=== PATIENT | male | born 1955 | race Caucasian/White ===

== ENCOUNTER 2018-04-02 17:15 | Inpatient (IN) | payer MEDICAID ==
[2018-04-02 18:01] LABS: BASO % 0.3 % (0.0-2.0); EOS % 0.1 % (0.0-4.0); MEAN CORPUSCULAR HEMOGLOBIN 32.9 pg (27.0-31.0); MEAN CORPUSCULAR HGB CONC 34.3 g/dL (33.0-37.0); MONO # 0.3 K/uL (0.0-0.8); MONO % 2.9 % (0.0-10.0); NEUT # 8.8 K/uL (1.8-7.0); NRBC % 0.1 % (0.0-2.0); RBC 4.26 Mil/uL (4.40-5.90); WHITE BLOOD COUNT 10.1 K/uL (4.8-10.8)
[2018-04-02 18:04] LABS: NEUT % 86.7 % (50.0-75.0)
[2018-04-02] MEDS ORDERED: Sodium Chloride 0.9% 1,000 ML ONE ×2 (18:15→19:35)
[2018-04-02 18:24] LABS: ALB/GLOB RATIO 1.4 (1.0-2.1); ALBUMIN 4.5 g/dL (3.5-5.0); ALT/SGPT 20 U/L (21-72); AST/SGOT 23 U/L (17-59); BLOOD UREA NITROGEN 24 mg/dL (9-20); CALCIUM 10.2 mg/dl (8.6-10.4); GFR AFRICAN-AMERICAN > 60; GFR NON-AFRICAN AMERICAN > 60; LIPASE 55 U/L (23-300)
[2018-04-02] MEDS ORDERED: Sodium Chloride 0.9% 1,000 ML IV ONE ×2 (18:24→19:01)
[2018-04-02] MEDS ORDERED: (Novolin R) Insulin Human Regular 100 units/ml vial IV STA (19:56)
[2018-04-02] MEDS ORDERED: Tetanus/Diphtheria Toxoids 0.5 ml Syringe IM ONE (19:57)
--- NOTE | 2018-04-02 19:59 | C.PDOC ---
History Of Present Illness 62 y/o male with history of DM presents to ED with c/o vomiting 10 times today after eating Fried Fish for breakfast. Patient states he is non compliant with DM medication and denies abdominal pain, back pain or any other complaints at this time. Time Seen by Provider: 04/02/18 18:54 Chief Complaint (Nursing): Abdominal Pain History Per: Patient History/Exam Limitations: no limitations Onset/Duration Of Symptoms: Hrs Current Symptoms Are (Timing): Still Present Past Medical History Reviewed: Historical Data, Nursing Documentation, Vital Signs Vital Signs: Last Vital Signs Temp 98 F 04/02/18 21:15 Pulse 87 04/02/18 21:15 Resp 20 04/02/18 21:15 BP 157/89 H 04/02/18 21:15 Pulse Ox 100 04/02/18 21:15 - Medical History PMH: Gastritis, HTN, Hyperlipidemia Surgical History: No Surg Hx Family History: States: No Known Family Hx - Social History Hx Alcohol Use: No Hx Substance Use: No - Immunization History Hx Tetanus Toxoid Vaccination: No Hx Influenza Vaccination: Yes Hx Pneumococcal Vaccination: No Review Of Systems Constitutional: Negative for: Fever, Chills Gastrointestinal: Positive for: Nausea, Vomiting. Negative for: Abdominal Pain Genitourinary: Negative for: Dysuria, Hematuria Musculoskeletal: Negative for: Back Pain Skin: Negative for: Rash Physical Exam - Physical Exam Appears: Non-toxic, No Acute Distress Skin: Warm, Dry, No Rash Head: Atraumatic, Normacephalic Oral Mucosa: Moist Neck: Normal ROM, Supple Cardiovascular: Rhythm Regular Respiratory: Normal Breath Sounds, No Rales, No Rhonchi, No Wheezing Gastrointestinal/Abdominal: Soft, No Tenderness, No Guarding, No Rebound, Other (obese abdomen) Back: No CVA Tenderness, No Paraspinal Tenderness Neurological/Psych: Oriented x3, Normal Speech ED Course And Treatment - Laboratory Results Result Diagrams: 04/02/18 17:58 04/02/18 17:58 Lab Interpretation: Abnormal (+ elev glu) ECG: Interpreted By Me ECG Rhythm: Sinus Rhythm ECG Interpretation: Normal Rate From EC (BPM) O2 Sat by Pulse Oximetry: 96 (RA) Pulse Ox Interpretation: Normal - Radiology CXR: Interpreted by Me CXR Interpretation: Yes: No Acute Disease - Other Rad abd x 2 X-Ray: Interpreted by Me (large stool throughout) Progress Note: Insulin given for sugar. Patient tried to be discharged but stated he was ataxic and could not walk without assistance not baseline. Head CT ordered Reevaluation Time: 19:59 Reassessment Condition: Improved Medical Decision Making Medical Decision Making: chronic constipation vs acute food intox (ate a fried fish for breakfast this AM ) uncontrolled DM improved with ED tx normal bicarb with elev glu, LOW susp of DKA laxative educated. Disposition Doctor Will See Patient In The: Office Counseled Patient/Family Regarding: Studies Performed, Diagnosis - Disposition Referrals: [facility] [Outside] [facility] [Outside] [facility] [Outside] Disposition: HOME/ ROUTINE Disposition Time: 20:00 Condition: GOOD Additional Instructions: Reglan 10 mg for nausea/constipation as needed control your diabetes with medications and diet control Occasional laxative as needed for chronic constipation diet and exercise changes. Follow-up in our outpatient Family [facility] as needed. Prescriptions: Metoclopramide [Reglan] 1 tab PO TID PRN #25 tab PRN Reason: Nausea/Vomiting Instructions: Constipation, Adult (DC), Nausea and Vomiting, Adult (DC) Forms: [employer] (Faroese) - Clinical Impression Clinical Impression: Vomiting - Scribe Statement The provider has reviewed the documentation as recorded by the Scribfang Voss All medical record entries made by the Scribe were at my direction and personally dictated by me. I have reviewed the chart and agree that the record accurately reflects my personal performance of the history, physical exam, medical decision making, and the department course for this patient. I have also personally directed, reviewed, and agree with the discharge instructions and disposition.
[2018-04-02] MEDS ORDERED: (Novolin R) Insulin Human Regular 100 units/ml vial ONE (20:11)
--- NOTE | 2018-04-03 07:30 | CT ---
PROCEDURE: CT HEAD WITHOUT CONTRAST HISTORY: vomiting, GAITAN, ataxia COMPARISON: None available. TECHNIQUE: Axial computed tomography images were obtained through the head/brain without intravenous contrast. Coronal and sagittal reconstructions were also acquired. Radiation dose: Total exam DLP = 885 mGy-cm. FINDINGS: HEMORRHAGE: No intracranial hemorrhage seen. BRAIN: No intraparenchymal mass identified. There is ventricular and sulcal prominence, consistent with age related volume loss. Intracranial atherosclerosis noted. Bilateral basal ganglia calcifications noted. VENTRICLES: See above CALVARIUM: Intact PARANASAL SINUSES: Visualized paranasal sinuses are clear. MASTOID AIR CELLS: Visualized mastoid air cells are clear. OTHER FINDINGS: None. IMPRESSION: No mass, hemorrhage, or acute infarct identified.
[2018-04-03] MEDS: (Novolin R) Insulin Human Regular 100 units/ml vial SC SCH ×4 (08:35→22:06)
--- NOTE | 2018-04-03 10:18 | RAD ---
PROCEDURE: Radiographs of the chest and abdomen (obstructive series) HISTORY: abd pain COMPARISON: No prior. TECHNIQUE: AP radiograph of the chest, with upright and supine radiographs of the abdomen. FINDINGS: CHEST: Lungs: Clear. Cardiovascular: Atherosclerotic aortic calcifications. Cardiomediastinal silhouette enlarged. Pleura: Eventration of the right hemidiaphragm. No pleural fluid. No pneumothorax. Other findings: None. ABDOMEN AND PELVIS: Bowel: Unremarkable bowel gas pattern. Prominent amount of retained colonic stool. No evidence of mechanical obstruction. Free air: None. Bones: Degenerative changes. Other findings: None. IMPRESSION: Unremarkable radiographs of chest and abdomen. No evidence of mechanical bowel obstruction. Prominent amount of retained colonic stool.
[2018-04-03] MEDS: Sodium Chloride 0.9% 1,000 ML IV SCH ×2 (10:52→21:25)
[2018-04-03 11:36] LABS: BASO % 0.5 % (0.0-2.0); HEMOGLOBIN 13.1 g/dL (12.0-18.0); LYMPH # 1.2 K/uL (1.0-4.3); MEAN CELL VOLUME 96.3 fL (80.0-94.0); MEAN CORPUSCULAR HEMOGLOBIN 33.4 pg (27.0-31.0); MEAN CORPUSCULAR HGB CONC 34.7 g/dL (33.0-37.0); MEAN PLATELET VOLUME 7.9 fL (7.2-11.7); MONO # 0.4 K/uL (0.0-0.8); MONO % 3.9 % (0.0-10.0); NEUT # 8.1 K/uL (1.8-7.0); NEUT % 83.6 % (50.0-75.0); RBC 3.93 Mil/uL (4.40-5.90); RED CELL DISTRIBUTION WIDTH 13.3 % (11.5-14.5); WHITE BLOOD COUNT 9.7 K/uL (4.8-10.8)
[2018-04-03 12:34] LABS: ALB/GLOB RATIO 1.4 (1.0-2.1); ALT/SGPT 22 U/L (21-72); AST/SGOT 21 U/L (17-59); BLOOD UREA NITROGEN 26 mg/dL (9-20); GFR AFRICAN-AMERICAN > 60; GFR NON-AFRICAN AMERICAN > 60
--- NOTE | 2018-04-03 14:33 | CP.PCM.PN ---
Subjective - Date & Time of Evaluation Date of Evaluation: 04/03/18 Time of Evaluation: 14:31 - Subjective Subjective: Internal Medicine Progress Note - Dr Phillip Service Patient seen and examined at bedside. Per nursing no acute events overnight. Patient states that he still feels nauseous. Had small amount of vomiting early this morning. States that he is hungry. Denies headaches, dizziness, cp, palpitations, sob, abdominal pain, urinary symptoms, diarrhea. Objective - Vital Signs/Intake and Output Vital Signs (last 24 hours): Temp Pulse Resp BP Pulse Ox 98.7 F 76 20 142/73 95 04/03/18 08:16 04/03/18 08:16 04/03/18 08:16 04/03/18 08:16 04/03/18 08:16 Intake and Output: 04/03/18 04/03/18 06:59 18:59 Intake Total 0 Balance 0 - Medications Medications: Current Medications Heparin Sodium (Porcine) (Heparin) 5,000 units SC Q12 [facility] Last Admin: 04/03/18 10:54 Dose: 5,000 units Sodium Chloride (Sodium Chloride 0.9%) 1,000 mls @ 80 mls/hr IV .[id number] [facility] Last Admin: 04/03/18 10:52 Dose: 80 mls/hr Insulin Human Regular (Novolin R) 0 unit SC ACHS [facility] PRN Reason: Protocol Last Admin: 04/03/18 13:35 Dose: 4 units Ondansetron HCl (Zofran Inj) 4 mg IVP Q4H PRN PRN Reason: Nausea/Vomiting Last Admin: 04/03/18 10:52 Dose: 4 mg Pantoprazole Sodium (Protonix Inj) 40 mg IVP DAILY [facility] Last Admin: 04/03/18 10:54 Dose: 40 mg - Labs Labs: 04/03/18 11:23 04/03/18 12:12 - Constitutional Appears: Non-toxic, No Acute Distress - Head Exam Head Exam: ATRAUMATIC, NORMAL INSPECTION, NORMOCEPHALIC - Eye Exam Eye Exam: EOMI, Normal appearance Pupil Exam: NORMAL ACCOMODATION - ENT Exam ENT Exam: Mucous Membranes Moist - Neck Exam Neck Exam: Full ROM - Respiratory Exam Respiratory Exam: Clear to Ausculation Bilateral, NORMAL BREATHING PATTERN. absent: Rales, Rhonchi, Wheezes - Cardiovascular Exam Cardiovascular Exam: REGULAR RHYTHM, +S1, +S2 - GI/Abdominal Exam GI & Abdominal Exam: Soft, Normal Bowel Sounds. absent: Guarding, Rigid, Tenderness - Extremities Exam Extremities Exam: Full ROM, Normal Inspection - Neurological Exam Neurological Exam: Alert, Awake, Oriented x3 - Psychiatric Exam Psychiatric exam: Normal Affect, Normal Mood - Skin Skin Exam: Dry, Normal Color, Warm Assessment and Plan - Assessment and Plan (Free Text) Assessment: A/P: Patient is a 62 year old male with past medical history of Diabetes Mellitus, HTN, HLD, gastritis presented to the ED for multiple episodes of non- bloody, non-bilious vomiting with abdominal pain. Abdominal pain with Intractable Nausea and Vomiting -Stable, afebrile -GI Obstructive series negative for SBO -Lipase was negative -NS at 80 cc/hr -Zofran prn nausea -Protonix 40mg IVP daily -GI on consult, help appreciated Constipation -Started on Colace 100mg PO BID -Obstructive series showing moderate amount of retained stool History of Diabetes Mellitus -F/U Hga1c -Low dose insulin sliding scale -certified adapted physical educator referral placed History of Hypertension -Currently normatensive -will monitor BPs at this time GI/DVT ppx -Protonix 40mg IVP daily -Heparin 5000 units Q12H Plan discussed with Dr Marjan Raines DO PGY-2
[2018-04-03 21:38] LABS: BARBITURATES, UR NEGATIVE (NEGATIVE); BENZODIAZEPINES, UR NEGATIVE (NEGATIVE); OPIATES, UR NEGATIVE (NEGATIVE); PHENCYCLIDINE, UR NEGATIVE (NEGATIVE)
--- NOTE | 2018-04-03 23:28 | CARD ---
APPROVED REPORT EKG Measurement Heart [id number] <Conclusion> Normal sinus rhythm Inferior infarct, age undetermined Abnormal ECG
[2018-04-04] MEDS: (Novolin R) Insulin Human Regular 100 units/ml vial SC SCH ×4 (08:35→21:27)
[2018-04-04] MEDS ORDERED: Magnesium Citrate Oral SOL (300 ml) PO ONE (09:00)
--- NOTE | 2018-04-04 14:20 | PN ---
DATE: 04/04/2018 LOCATION: 564, bed B. SUBJECTIVE: This is 62-year-old male seen and examined early yesterday for GI consultation, reexamined again today with intermittent period of abdominal pain, nausea, dyspepsia, complaining of constipation, severe at times with postprandial abdominal distention. No reported chest pain, palpitation, or active bleeding. The most recent lab results showed blood glucose level of 235 with normal liver function test. The patient had previously abdominal and pelvic CAT scan as well as CAT scan of the head due to his headache, reports are seen. PHYSICAL EXAMINATION: GENERAL: A 62-year-old male, awake, alert, and oriented. VITAL SIGNS: Afebrile with pulse of 74, respiratory rate 20 to 22, blood pressure 164/78. HEENT: Showed pale, dry oral mucous membranes. Nonicteric sclerae. LUNGS: Few scattered crepitation. Decreased air entry at bases. HEART: Positive S1 and S2. ABDOMEN: Soft. Bowel sounds are present with mild distention. No mass or organomegaly. No rebound tenderness or guarding. EXTREMITIES: Without significant clubbing, cyanosis, or edema. NEUROLOGIC: No reported new neurological deficits, sensory, or motor. No reported new focal deficits. IMPRESSION: 1. Reexacerbation of peptic ulcer disease. 2. Poorly-controlled diabetes mellitus with possible diabetic gastroparesis. 3. Rule out gastric versus duodenal ulcer. 4. Change of bowel movement habit of unclear etiology, to rule out occult gastrointestinal tract malignancy. 5. Known history of hyperlipemia, hypertension with migraine headache. SUGGESTIONS: 1. Agree with your plan. 2. Serum lipase and amylase level. 3. Adjust oral intake, no . 4. Citrate of magnesium. 5. Endoscopic evaluation of the GI tract when the patient is more stable clinically. Sammy Cervantes MD
[2018-04-04] MEDS: Sodium Chloride 0.9% 1,000 ML IV SCH (21:46)
[2018-04-05] MEDS: (Novolin R) Insulin Human Regular 100 units/ml vial SC SCH ×4 (08:02→22:38)
--- NOTE | 2018-04-05 09:24 | CP.PCM.PN ---
Subjective - Date & Time of Evaluation Date of Evaluation: 04/05/18 Time of Evaluation: 09:23 - Subjective Subjective: Progress Note for Dr. Phillip's Service Pt seen and examined at bedside. He states that he has not had any nausea or vomiting overnight. No other acute events noted. He is awaiting evaluation by GI Dr. Mcnally today. Objective - Vital Signs/Intake and Output Vital Signs (last 24 hours): Temp Pulse Resp BP Pulse Ox 98.5 F 62 20 154/75 H 96 04/05/18 07:00 04/05/18 07:00 04/05/18 07:00 04/05/18 07:00 04/05/18 07:00 Intake and Output: 04/05/18 04/05/18 06:59 18:59 Output Total 350 Balance -350 - Medications Medications: Current Medications Docusate Sodium (Colace) 100 mg PO BID [facility] Last Admin: 04/04/18 17:19 Dose: 100 mg Heparin Sodium (Porcine) (Heparin) 5,000 units SC Q12 [facility] Last Admin: 04/04/18 21:46 Dose: 5,000 units Sodium Chloride (Sodium Chloride 0.9%) 1,000 mls @ 80 mls/hr IV .[id number] [facility] Last Admin: 04/04/18 21:46 Dose: 80 mls/hr Insulin Human Regular (Novolin R) 0 unit SC ACHS [facility] PRN Reason: Protocol Last Admin: 04/05/18 08:02 Dose: Not Given Metoclopramide HCl (Reglan) 5 mg IVP Q6H [facility] Last Admin: 04/05/18 08:16 Dose: 5 mg Ondansetron HCl (Zofran Inj) 4 mg IVP Q4H PRN PRN Reason: Nausea/Vomiting Last Admin: 04/03/18 10:52 Dose: 4 mg Pantoprazole Sodium (Protonix Inj) 40 mg IVP DAILY [facility] Last Admin: 04/04/18 09:11 Dose: 40 mg - Labs Labs: 04/03/18 11:23 04/03/18 12:12 - Constitutional Appears: No Acute Distress - Head Exam Head Exam: ATRAUMATIC, NORMOCEPHALIC - Eye Exam Eye Exam: EOMI - ENT Exam ENT Exam: Mucous Membranes Moist - Respiratory Exam Respiratory Exam: Clear to Ausculation Bilateral, NORMAL BREATHING PATTERN - Cardiovascular Exam Cardiovascular Exam: REGULAR RHYTHM, +S1, +S2 - GI/Abdominal Exam GI & Abdominal Exam: Soft. absent: Tenderness - Neurological Exam Neurological Exam: Alert, Awake, Oriented x3 - Psychiatric Exam Psychiatric exam: Normal Affect, Normal Mood - Skin Skin Exam: Dry, Warm Assessment and Plan - Assessment and Plan (Free Text) Plan: Abdominal pain with Intractable Nausea and Vomiting -no vomiting overnight -Stable, afebrile -GI Obstructive series negative for SBO -Lipase 55 -NS at 80 cc/hr -Zofran/Reglan prn nausea -Protonix 40mg IVP daily -GI on consult- Dr. Mcnally- Gm appreciated -CEA 1.9 -CA19-9 19.9 Constipation -Colace 100mg PO BID -Obstructive series showing moderate amount of retained stool History of Diabetes Mellitus-poorly controlled -Hgb A1C 11.2 -Low dose insulin sliding scale increased to medium dose- monitor and increase as needed -natural resources extension educator referral placed -Diabetic diet History of Hypertension -Currently normotensive -will monitor BPs at this time GI/DVT ppx -Protonix 40mg IVP daily -Heparin 5000 units Q12H Case discussed with Dr Phillip All medical management as per Dr. Marjan Martinez D.O.
[2018-04-05] MEDS: Sodium Chloride 0.9% 1,000 ML IV SCH (09:41)
[2018-04-05] MEDS ORDERED: Propofol 10 mg/ml Inj (20 ML) ONE (10:10)
[2018-04-05] MEDS ORDERED: Bisacodyl 5mg EC Tab PO ONE ×2 (11:00→22:10)
[2018-04-05] MEDS ORDERED: Peg-Electrolyte Oral Soln 4L (Golytely) PO ONE (13:00)
[2018-04-05 14:15] LABS: PROTHROMBIN TIME 11.3 SECONDS (9.7-12.2)
--- NOTE | 2018-04-06 07:23 | CP.PCM.PN ---
Subjective - Date & Time of Evaluation Date of Evaluation: 04/06/18 Time of Evaluation: 07:23 - Subjective Subjective: Internal Medicine Progress Note - Dr Phillip Service Patient seen and examined at bedside. Per nursing no acute events overnight. Patient is doing well, he is NPO for colonoscopy today. Denies headaches, dizziness, cp, palpitations, sob, abdominal pain, urinary symptoms, nausea/ vomiting. Objective - Vital Signs/Intake and Output Vital Signs (last 24 hours): Temp Pulse Resp BP Pulse Ox 98.6 F 62 20 153/75 H 96 04/06/18 00:00 04/06/18 00:00 04/06/18 00:00 04/06/18 00:00 04/06/18 00:00 Intake and Output: 04/06/18 04/06/18 06:59 18:59 Intake Total 1000 Output Total 1000 Balance 0 - Medications Medications: Current Medications Docusate Sodium (Colace) 100 mg PO BID [facility] Last Admin: 04/05/18 09:57 Dose: Not Given Heparin Sodium (Porcine) (Heparin) 5,000 units SC Q12 [facility] Last Admin: 04/05/18 21:29 Dose: 5,000 units Sodium Chloride (Sodium Chloride 0.9%) 1,000 mls @ 80 mls/hr IV .[id number] [facility] Last Admin: 04/05/18 09:41 Dose: 80 mls/hr Insulin Human Regular (Novolin R) 0 unit SC ACHS [facility] PRN Reason: Protocol Last Admin: 04/05/18 22:38 Dose: Not Given Metoclopramide HCl (Reglan) 5 mg IVP Q6H [facility] Last Admin: 04/06/18 03:45 Dose: 5 mg Ondansetron HCl (Zofran Inj) 4 mg IVP Q4H PRN PRN Reason: Nausea/Vomiting Last Admin: 04/03/18 10:52 Dose: 4 mg Pantoprazole Sodium (Protonix Inj) 40 mg IVP DAILY [facility] Last Admin: 04/05/18 09:43 Dose: 40 mg - Labs Labs: 04/03/18 11:23 04/03/18 12:12 PT 11.3 SECONDS (9.7-12.2) 04/05/18 14:00 INR 1.0 04/05/18 14:00 - Constitutional Appears: Non-toxic, No Acute Distress - Head Exam Head Exam: ATRAUMATIC, NORMAL INSPECTION, NORMOCEPHALIC - Eye Exam Eye Exam: EOMI, Normal appearance Pupil Exam: NORMAL ACCOMODATION - ENT Exam ENT Exam: Mucous Membranes Moist - Neck Exam Neck Exam: Full ROM - Respiratory Exam Respiratory Exam: Clear to Ausculation Bilateral, NORMAL BREATHING PATTERN. absent: Rales, Rhonchi, Wheezes - Cardiovascular Exam Cardiovascular Exam: REGULAR RHYTHM - GI/Abdominal Exam GI & Abdominal Exam: Soft, Normal Bowel Sounds. absent: Tenderness - Rectal Exam Rectal Exam: Deferred - Extremities Exam Extremities Exam: Normal Inspection - Back Exam Back Exam: NORMAL INSPECTION - Neurological Exam Neurological Exam: Alert, Awake, Normal Gait, Oriented x3 - Psychiatric Exam Psychiatric exam: Normal Affect, Normal Mood - Skin Skin Exam: Dry, Normal Color, Warm Assessment and Plan - Assessment and Plan (Free Text) Assessment: Abdominal pain with Intractable Nausea and Vomiting -Patient reports no vomiting overnight -Stable, afebrile -GI Obstructive series negative for SBO -Lipase 55 -Zofran/Reglan prn nausea -Protonix 40mg IVP daily -GI on consult- Dr. Mcnally- Gm appreciated -CEA 1.9, CA19-9 19.9 -NPO for colonoscopy today Constipation -Obstructive series showing moderate amount of retained stool -NPO for colonoscopy today History of Diabetes Mellitus-poorly controlled -Hgb A1C 11.2 -Low dose insulin sliding scale increased to medium dose- monitor and increase as needed -Started Lantus 10 units HS -hospital educator referral placed -Diabetic diet -Hypoglycemia protocol History of Hypertension -BPs intermittently elevated -Started Cozaar 50mg PO daily GI/DVT ppx -Protonix 40mg IVP daily -Heparin 5000 units Q12H Case discussed with Dr Phillip All medical management as per Dr. Marjan Raines DO PGY-2
[2018-04-06] MEDS: (Novolin R) Insulin Human Regular 100 units/ml vial SC SCH ×3 (07:52→17:33)
[2018-04-06 08:28] LABS: BASO % 0.5 % (0.0-2.0); EOS # 0.1 K/uL (0.0-0.7); EOS % 0.7 % (0.0-4.0); HEMOGLOBIN 14.1 g/dL (12.0-18.0); LYMPH # 2.3 K/uL (1.0-4.3); LYMPH % 31.4 % (20.0-40.0); MEAN CELL VOLUME 94.8 fL (80.0-94.0); MEAN CORPUSCULAR HEMOGLOBIN 33.5 pg (27.0-31.0); MEAN CORPUSCULAR HGB CONC 35.3 g/dL (33.0-37.0); MEAN PLATELET VOLUME 8.2 fL (7.2-11.7); MONO # 0.5 K/uL (0.0-0.8); MONO % 6.8 % (0.0-10.0); NEUT # 4.5 K/uL (1.8-7.0); NEUT % 60.6 % (50.0-75.0); RBC 4.22 Mil/uL (4.40-5.90); RED CELL DISTRIBUTION WIDTH 12.8 % (11.5-14.5); WHITE BLOOD COUNT 7.4 K/uL (4.8-10.8)
[2018-04-06 08:37] LABS: ALB/GLOB RATIO 1.2 (1.0-2.1); ALBUMIN 3.8 g/dL (3.5-5.0); ALT/SGPT 21 U/L (21-72); AST/SGOT 22 U/L (17-59); BLOOD UREA NITROGEN 12 mg/dL (9-20); CALCIUM 8.5 mg/dl (8.6-10.4); GFR AFRICAN-AMERICAN > 60; GFR NON-AFRICAN AMERICAN > 60
[2018-04-06] MEDS ORDERED: Lactated Ringer's 1,000 ML IV ONE (09:50)
[2018-04-06] MEDS ORDERED: Propofol 10 mg/ml Inj (20 ML) ONE (09:50)
[2018-04-06] MEDS ORDERED: Glucagon Recombinant 1 mg Inj ONE (10:09)
[2018-04-06] MEDS ORDERED: Glucagon Recombinant 1 mg Inj IM PRN (13:04)
[2018-04-06] MEDS ORDERED: Dextrose 50% SYRINGE Inj (50 ml) IV PRN (13:04)
[2018-04-06] MEDS ORDERED: (Lantus) Insulin Glargine, Recombinant SC SCH (22:00)
[2018-04-07 01:26] VITALS: RESP 20
[2018-04-07 07:38] VITALS: TEMP 98.5; O2SAT 99
[2018-04-07 07:58] LABS: BASO % 0.5 % (0.0-2.0); EOS # 0.1 K/uL (0.0-0.7); EOS % 1.1 % (0.0-4.0); HEMOGLOBIN 13.7 g/dL (12.0-18.0); LYMPH # 2.3 K/uL (1.0-4.3); LYMPH % 29.4 % (20.0-40.0); MEAN CELL VOLUME 94.2 fL (80.0-94.0); MEAN CORPUSCULAR HEMOGLOBIN 33.5 pg (27.0-31.0); MEAN CORPUSCULAR HGB CONC 35.6 g/dL (33.0-37.0); MEAN PLATELET VOLUME 8.6 fL (7.2-11.7); MONO # 0.4 K/uL (0.0-0.8); MONO % 5.4 % (0.0-10.0); NEUT % 63.6 % (50.0-75.0); RBC 4.08 Mil/uL (4.40-5.90); RED CELL DISTRIBUTION WIDTH 12.9 % (11.5-14.5); WHITE BLOOD COUNT 7.8 K/uL (4.8-10.8)
[2018-04-07 08:13] LABS: ALB/GLOB RATIO 1.3 (1.0-2.1); ALBUMIN 3.5 g/dL (3.5-5.0); ALT/SGPT 24 U/L (21-72); AST/SGOT 19 U/L (17-59); BLOOD UREA NITROGEN 18 mg/dL (9-20); CALCIUM 8.6 mg/dl (8.6-10.4); GFR AFRICAN-AMERICAN > 60; GFR NON-AFRICAN AMERICAN > 60
[2018-04-07] MEDS: (Novolin R) Insulin Human Regular 100 units/ml vial SC SCH ×2 (08:32→12:55)
[2018-04-07] MEDS ORDERED: Pantoprazole 40 mg EC Tab PO SCH (10:00)
[2018-04-07 13:08] VITALS: BP 164/75; PULSE 69
[2018-04-07] MEDS ORDERED: Pneumococcal 23-Valent Vaccine IM ONE (13:30)
--- NOTE | 2018-04-07 17:55 | CP.PCM.PN ---
Subjective - Date & Time of Evaluation Date of Evaluation: 04/07/18 Time of Evaluation: 11:00 - Subjective Subjective: alert, awake, no acute distress, no vomiting. Objective - Vital Signs/Intake and Output Vital Signs (last 24 hours): Temp Pulse Resp BP Pulse Ox 98.5 F 69 20 164/75 H 99 04/07/18 07:37 04/07/18 11:09 04/07/18 07:37 04/07/18 11:09 04/07/18 07:37 Intake and Output: 04/07/18 04/07/18 06:59 18:59 Intake Total 730 Balance 730 - Labs Labs: 04/07/18 07:51 04/07/18 07:51 PT 11.3 SECONDS (9.7-12.2) 04/05/18 14:00 INR 1.0 04/05/18 14:00 Assessment and Plan - Assessment and Plan (Free Text) Assessment: 62 year old male with DM , admitted with nausea, vomiting, seen and examined. Alert and orientedx3, denies any distress. Discussed with DR Phillip , plan to discharge home today with all the prescriptions. Advised to follow up with PMD in 1 week.
--- NOTE | 2018-04-09 09:29 | PN ---
DATE: 04/07/2018 LOCATION: [address], bed B. SUBJECTIVE: This is a 62-year-old male seen and examined at rounds post-upper and lower endoscopy without any significant clinical changes. No reported nausea or vomiting this morning. The entire chart is reviewed including but not limited to the most recent lab and radiology study results, current and the previous medication list, and today's lab still pending. Blood glucose level is 234. PHYSICAL EXAMINATION: GENERAL: A 62-year-old male tolerating oral intake with the complaint of mild headache. Denied any chest pain, palpitations, significant shortness of breath or evidence of active bleeding. VITAL SIGNS: The patient is afebrile with heart rate 62, respiratory rate 18 to 20, blood pressure of 158/76. HEENT: Showed pale, dry oral mucous membrane. Nonicteric sclerae. LUNGS: Few scattered crepitation. Decreased air entry at bases. HEART: Positive S1 and S2. ABDOMEN: Soft. Bowel sounds are present. No mass or organomegaly. No rebound tenderness or guarding. EXTREMITIES: Without edema, clubbing or cyanosis. NEUROLOGIC: No reported new neurological deficit, sensory or motor It has to be mentioned that the official pathology report for the gastric mucosal biopsy showed positive for Helicobacter pylori infection for which the patient is to be treated as outpatient. IMPRESSION: 1. Re-exacerbation of peptic ulcer disease. 2. Known history of hypertension and hyperlipidemia. 3. Left-sided colitis with internal hemorrhoids by colonoscopy. SUGGESTION: 1. Continue current management. 2. Advance diet as tolerated. Sammy Cervantes MD
--- NOTE | 2018-04-09 10:12 | CON ---
DATE: 04/03/[address] Sammy Cervantes to Dr. Pedro Phillip. I was called for GI consultation by the admitting MD. The patient is seen and fully examined on 04/03/2018 as requested by the admitting medical staff. The entire chart is reviewed including, but not limited to, most recent lab and radiology study results, current and previous medication list, current and previous medical events, allergy to medication list as well as all the available current and previous medical records. Case discussed with Dr. Phillip at length on 04/03/2018 immediately after my GI consultation. HISTORY OF PRESENT ILLNESS: This is a 62-year-old male with a complaint of severe crampy abdominal pain, recurrent episodes of nausea and vomiting, postprandial abdominal distention, but denied any active bleeding, chills, or fever at the time of my physical examination. No chest pain, palpitation, or significant shortness of breath, but recent change of bowel movement habit. PAST MEDICAL HISTORY: Including, 1. Hypertension. 2. Hyperlipidemia. 3. Peptic ulcer disease. 4. Apparently, the patient never had colonoscopy before. ALLERGIES TO MEDICATIONS: UNKNOWN. CURRENT MEDICATIONS: Post-admission medication list reviewed. SOCIAL HISTORY: No reported recent history of cigarette smoking or alcohol intake. FAMILY HISTORY: Noncontributory. PHYSICAL EXAMINATION: GENERAL: A 62-year-old male. VITAL SIGNS: Afebrile with pulse of 82, respiratory rate 20-22, blood pressure of 150/86. HEENT: Showed dry oral mucous membrane. Nonicteric sclerae. LYMPH NODES: No lymphadenitis or lymphadenopathy. LUNGS: Few scattered mild crepitation. Breathing sounds are present bilaterally. HEART: Positive S1 and S2. ABDOMEN: Soft with generalized tenderness and [id number] distention. Bowel sounds are hypoactive. No rebound tenderness or guarding. No mass or organomegaly could be appreciated. RECTAL: The patient refused. EXTREMITIES: No reported new neurological deficits, sensory or motor. No reported new focal deficits. LABORATORY DATA: Initial blood workup post admission showed white blood cells of 10.1, but normal hemoglobin and hematocrit. Blood glucose level 349 indicative of poorly-controlled diabetes mellitus with increased BUN but normal creatinine. DIAGNOSTIC DATA: Chest x-ray reported to be no acute changes or acute pathology. IMPRESSION: 1. Re-exacerbation of peptic ulcer disease. 2. Poorly-controlled diabetes mellitus with possible diabetic gastroparesis. 3. Change of bowel movement habit, rule out occult gastrointestinal malignancy as the patient stated that he never had colonoscopy before. 4. Past medical history of hyperlipidemia and hypertension. SUGGESTIONS: 1. Agree with your plan. 2. Sectional abdominal and pelvic CAT scan. 3. Complete stool analysis. Proton pump inhibitors IV. 4. Reglan IV. 5. Endoscopic evaluation of the GI tract when the patient is more stable clinically. 6. Further recommendations to follow. Sammy Cervantes MD
--- NOTE | 2018-04-10 12:38 | DS ---
The patient has complained of generalized weakness and fatigue, abdominal pain with blood sugar. The patient was placed into the supportive care, endoscopy, colonoscopy, started insulin, advised diabetes. Pedro Phillip MD
== END 2018-04-07 13:57 | disposition home or self-care (01) | DRG 533 ==
LOC: C.ER 17:15 → C.9E 22:21 → C.5S 23:21 → OBSVTOIN 04-04 11:15 → C.5S 04-04 14:27
PROVIDERS: ADMIT Internal Medicine Pulmonary Disease; ATTEND Internal Medicine Pulmonary Disease
PROC: 0DD68ZX Extraction of Stomach, Via Natural or Artificial Opening Endoscopic, Diagnostic (ICD-10-PCS; principal; 2018-04-05 10:31)
PROC: 0DJD8ZZ Inspection of Lower Intestinal Tract, Via Natural or Artificial Opening Endoscopic (ICD-10-PCS; 2018-04-06)
DX: E11.43 Type 2 diabetes mellitus with diabetic autonomic (poly)neuropathy (principal); B37.81 Candidal esophagitis; E11.65 Type 2 diabetes mellitus with hyperglycemia; K29.50 Unspecified chronic gastritis without bleeding; K31.84 Gastroparesis; K59.00 Constipation, unspecified; B96.81 Helicobacter pylori [H. pylori] as the cause of diseases classified elsewhere; K27.9 Peptic ulcer, site unspecified, unspecified as acute or chronic, without hemorrhage or perforation; E78.5 Hyperlipidemia, unspecified; I10 Essential (primary) hypertension; K51.50 Left sided colitis without complications; K64.8 Other hemorrhoids; G43.909 Migraine, unspecified, not intractable, without status migrainosus; K29.80 Duodenitis without bleeding; K44.9 Diaphragmatic hernia without obstruction or gangrene; Z79.4 Long term (current) use of insulin; Z87.11 Personal history of peptic ulcer disease; Z91.14 Patient's other noncompliance with medication regimen

== ENCOUNTER 2018-11-22 16:28 | Inpatient (IN) | payer MEDICAID ==
[2018-11-22 16:38] VITALS: BMI 28.7
[2018-11-22] MEDS ORDERED: cefTRIAXone IV 1 gm in Dextros 50 ML IV ONE (18:19)
[2018-11-22] MEDS ORDERED: Vancomycin 1 GM 1 GM/250 ML BAG IVPB STA (18:19)
--- NOTE | 2018-11-22 18:19 | C.PDOC ---
History Of Present Illness 63 y/o male presents to the ED, referred by podiatry Dr. Naren Lakhani DPM for inpatient evaluation of ulcers to the right 3rd and 5th distal toes. Patient was seen in the office earlier today. Patient notes the ulcers have been present for over 1 month. Also reports a foul smell coming from the area. Otherwise patient denies any numbness, weakness, tingling, or fevers. Time Seen by Provider: 11/22/18 18:04 Chief Complaint (Nursing): Lower Extremity Problem/Injury History Per: Patient History/Exam Limitations: no limitations Onset/Duration Of Symptoms: Days Current Symptoms Are (Timing): Still Present Past Medical History Reviewed: Historical Data, Nursing Documentation, Vital Signs Vital Signs: Last Vital Signs Temp 99 F 11/22/18 16:38 Pulse 102 H 11/22/18 16:38 Resp 18 11/22/18 16:38 BP 178/73 H 11/22/18 16:38 Pulse Ox 97 11/22/18 16:38 - Medical History PMH: Diabetes, Gastritis, HTN, Hyperlipidemia Surgical History: No Surg Hx - [facility] Procedures (04/04/18) INSPECTION OF LOWER INTESTINAL TRACT, ENDO (04/04/18) Family History: States: No Known Family Hx - Social History Hx Alcohol Use: No Hx Substance Use: No - Immunization History Hx Tetanus Toxoid Vaccination: No Hx Influenza Vaccination: No Hx Pneumococcal Vaccination: Yes Review Of Systems Constitutional: Negative for: Fever, Chills Musculoskeletal: Positive for: Foot Pain Skin: Positive for: Other (Ulcers to tips of right 3rd and 5th toes) Neurological: Negative for: Weakness, Numbness Physical Exam - Physical Exam Appears: Non-toxic, No Acute Distress, Other ( male) Skin: Warm, Dry Head: Atraumatic, Normacephalic Eye(s): bilateral: Normal Inspection, PERRL, EOMI Neck: Normal ROM Chest: Symmetrical Cardiovascular: Rhythm Regular, No Murmur Respiratory: Normal Breath Sounds, No Rales, No Rhonchi, No Wheezing Gastrointestinal/Abdominal: Soft, No Tenderness, No Distention Extremity: Right: Other (Non-macerated ulcer to distal right 3 digit, macerated and foul-smelling ulcer to distal right 5th digit), Bilateral: No Pedal Edema, Normal ROM Pulses: Left Dorsalis Pedis: Normal, Right Dorsalis Pedis: Normal Neurological/Psych: Oriented x3 ED Course And Treatment - Laboratory Results Result Diagrams: 11/22/18 18:38 11/22/18 18:38 Lab Interpretation: Abnormal (++ glu) ECG: Interpreted By Me ECG Rhythm: Sinus Rhythm ECG Interpretation: Normal Rate From EC O2 Sat by Pulse Oximetry: 97 (RA) Pulse Ox Interpretation: Normal - Radiology CXR: Interpreted by Me CXR Interpretation: Yes: No Acute Disease - CT Scan/US R foot Other Rad Studies (CT/US): Interpreted By Me (? bite lesions tip of R5th toe, otherwise no osteo/SQ gas tips of R 3rd nor 5th toes) Reevaluation Time: 20:25 Reassessment Condition: Improved Medical Decision Making Medical Decision Making: Impression: chronic R 3rd and 5th toe tip ulcers in diabetic referred for inpt eval by Pods Plan: D/w podiatry resident at 6:15PM, will evaluate patient in the ED VAnco/Rocephin started (PCN allergy) Pending Pods eval 8:15PM Discussed with Dr. Fishman, will admit Disposition Doctor Will See Patient In The: Hospital Counseled Patient/Family Regarding: Studies Performed, Diagnosis - Disposition Disposition: HOSPITALIZED Disposition Time: 20:26 Condition: GOOD - Clinical Impression Clinical Impression: Diabetic ulcer of toe - Scribe Statement The provider has reviewed the documentation as recorded by the Mary Kay Givens Provider Attestation: All medical record entries made by the Mary Kay were at my direction and personally dictated by me. I have reviewed the chart and agree that the record accurately reflects my personal performance of the history, physical exam, medical decision making, and the department course for this patient. I have also personally directed, reviewed, and agree with the discharge instructions and disposition.
[2018-11-22 18:41] LABS: BASO % 0.5 % (0.0-2.0); EOS # 0.1 K/uL (0.0-0.7); EOS % 0.9 % (0.0-4.0); HEMOGLOBIN 13.6 g/dL (12.0-18.0); LYMPH % 23.6 % (20.0-40.0); MEAN CELL VOLUME 94.9 fL (80.0-94.0); MEAN CORPUSCULAR HEMOGLOBIN 32.3 pg (27.0-31.0); MEAN PLATELET VOLUME 7.8 fL (7.2-11.7); MONO # 0.5 K/uL (0.0-0.8); MONO % 5.8 % (0.0-10.0); NEUT # 5.9 K/uL (1.8-7.0); NEUT % 69.2 % (50.0-75.0); NRBC % 0.1 % (0.0-2.0); RBC 4.22 Mil/uL (4.40-5.90); RED CELL DISTRIBUTION WIDTH 13.4 % (11.5-14.5); WHITE BLOOD COUNT 8.5 K/uL (4.8-10.8)
[2018-11-22 18:45] LABS: URINE BILIRUBIN NEGATIVE (NEGATIVE); URINE BLOOD NEGATIVE (NEGATIVE); URINE CLARITY Clear (Clear); URINE COLOR Straw (YELLOW); URINE GLUCOSE (UA) 3+ mg/dL (Normal); URINE LEUKOCYTE ESTERASE NEG Leu/uL (Negative); URINE PROTEIN NEGATIVE (NEGATIVE); URINE UROBILINOGEN NORMAL mg/dL (0.2-1.0)
[2018-11-22 18:54] LABS: ALB/GLOB RATIO 1.4 (1.0-2.1); ALBUMIN 4.5 g/dL (3.5-5.0); ALT/SGPT 12 U/L (21-72); AST/SGOT 22 U/L (17-59); CALCIUM 9.2 mg/dl (8.6-10.4); GFR NON-AFRICAN AMERICAN 34
[2018-11-22 18:59] LABS: BLOOD UREA NITROGEN 31 mg/dL (9-20)
[2018-11-22] MEDS ORDERED: Vancomycin 1 GM 1 GM/250 ML BAG IVPB ONE (19:04)
[2018-11-22 19:06] LABS: B-TYPE NATRIURETIC PEPTIDE 56.1 pg/mL (0-900)
--- NOTE | 2018-11-22 20:24 | CP.PCM.CON ---
History of Present Illness - History of Present Illness History of Present Illness: Podiatry Consult Note - Dr. Bright 63 year old male patient PMHx NIDDM, HTN, HLD seen in ED for infected 3rd and 5th digits, right foot. Patient was sent to ED by shingle grader Dr. Naren Lakhani for admission for cellulitis. Patient states he first developed the wounds on the tops of his right 3rd and 5th toes approximately 5 months ago with periods of improvement and worsening. Patient states he saw his shingle grader in office yesterday for diabetic foot care; at that visit pus was expressed from one of the wounds along with associated redness and increased pain so was sent to ED for further evaluation. Patient reports occasional numbness, burning, and tingling in his feet. Patient denies any previous history of cellulitis. Denies n/f/d/c/sob/[place]/cp. No other complaints. PMH: NIDDM, HTN, HLD, gastritis PSH: denies SH: denies ETOH/tobacco/illicit drug use, lives alone FH: unknown All: PCN Review of Systems - Review of Systems All systems: reviewed and no additional remarkable complaints except (as per HPI) Past Patient History - Infectious Disease Hx of Infectious Diseases: None - Past Social History Smoking Status: Never Smoked - CARDIAC Hx Hypertension: Yes - ENDOCRINE/METABOLIC Hx Endocrine Disorders: Yes Hx Diabetes Mellitus Type 2: Yes - MUSCULOSKELETAL/RHEUMATOLOGICAL Hx Falls: No - GASTROINTESTINAL Hx Gastritis: Yes - GENITOURINARY/GYNECOLOGICAL Hx Prostate Problems: Yes - PSYCHIATRIC Hx Substance Use: No - SURGICAL HISTORY Hx Surgeries: No - ANESTHESIA Hx Anesthesia: No Hx Anesthesia Reactions: No Hx Malignant Hyperthermia: No Meds Allergies/Adverse Reactions: Allergies Allergy/AdvReac Type Severity Reaction Status Date / Time Penicillins Allergy Verified 11/22/18 16:37 Physical Exam - Constitutional Appears: Non-toxic, No Acute Distress - Extremities Exam Additional comments: RLE focused physical exam: VASC: DP and PT pulses palpable 1/4. CFT <3 seconds to digits, unable to asses 3rd and 5th digits. Temperature gradient warm to warm, no significant increase in warmth noted to digits. Mild nonpitting edema noted to 5th digit. NEURO: Light touch and protective sensation diminished. DERM: 1) Full thickness ulceration noted to distal tuft of 3rd digit with periwound erythema - ulcer is 100% fibrotic, no drainage, no purulence, no fluctuance, no malodor. 2) Full thickness ulcer noted to distal tuft of 5th digit with periwound erythema and dusky changes - ulcer is 100% necrotic, no drainage, no purulence, no fluctuance, mild malodor. ORTHO: Pain on palpation noted to wounds. - Neurological Exam Neurological exam: Alert, Oriented x3 - Psychiatric Exam Psychiatric exam: Normal Affect, Normal Mood Results - Vital Signs Recent Vital Signs: Last Vital Signs Temp 99 F 11/22/18 16:38 Pulse 102 H 11/22/18 16:38 Resp 18 11/22/18 16:38 BP 178/73 H 11/22/18 16:38 Pulse Ox 97 11/22/18 18:19 - Labs Result Diagrams: 11/22/18 18:38 11/22/18 18:38 Labs: Laboratory Results - last 24 hr 11/22/18 11/22/18 11/22/18 18:38 18:38 18:38 WBC 8.5 RBC 4.22 L Hgb 13.6 Hct 40.0 MCV 94.9 H MCH 32.3 H MCHC 34.0 RDW 13.4 Plt Count 341 MPV 7.8 Neut % (Auto) 69.2 Lymph % (Auto) 23.6 [place] % (Auto) 5.8 Eos % (Auto) 0.9 Baso % (Auto) 0.5 Neut # (Auto) 5.9 Lymph # (Auto) 2.0 [place] # (Auto) 0.5 Eos # (Auto) 0.1 Baso # (Auto) 0.0 Sodium 136 Potassium 4.7 Chloride 99 Carbon Dioxide 25 Anion Gap 18 BUN 31 H Creatinine 2.0 H Est GFR ( Amer) 41 Est GFR (Non-Af Amer) 34 Random Glucose 343 H D Calcium 9.2 Total Bilirubin 0.3 AST 22 ALT 12 L D Alkaline Phosphatase 86 Troponin I < 0.0120 NT-Pro-B Natriuret Pep 56.1 Total Protein 7.7 Albumin 4.5 Globulin 3.2 Albumin/Globulin Ratio 1.4 Urine Color Straw Urine Clarity Clear Urine pH 6.0 Ur Specific [place] 1.027 Urine Protein Negative Urine Glucose (UA) 3+ H Urine Ketones Negative Urine Blood Negative Urine Nitrate Negative Urine Bilirubin Negative Urine Urobilinogen Normal Ur Leukocyte Esterase Neg Urine WBC (Auto) < 1 Urine RBC (Auto) < 1 Assessment & Plan - Assessment and Plan (Free Text) Assessment: 63M PMHx NIDDM, HTN, HLD, gastritis with right 3rd and 5th digit ulcers + cellulitis Plan: Patient seen and evaluated Discussed with attending, Dr. Bright Afebrile, WBC 8.5 ESR ordered, pending Right foot XR reviewed: no significant cortical destruction 1x dose of cefepime, vancomycin given in ED ID consulted Right foot wound culture taken, f/u GIAN/PVR ordered Patient to be admitted; podiatry will continue to follow while in house
--- NOTE | 2018-11-22 20:37 | CP.PCM.HP ---
<lOinda Cotton - Last Filed: 11/22/18 22:08> Meds Allergies/Adverse Reactions: Allergies Allergy/AdvReac Type Severity Reaction Status Date / Time Penicillins Allergy Verified 11/22/18 16:37 Results - Vital Signs Recent Vital Signs: Last Vital Signs Temp 98.7 F 11/22/18 20:37 Pulse 84 11/22/18 20:37 Resp 18 11/22/18 16:38 BP 133/66 11/22/18 20:37 Pulse Ox 97 11/22/18 21:15 - Labs Result Diagrams: 11/22/18 18:38 11/22/18 18:38 Labs: Laboratory Results - last 24 hr 11/22/18 11/22/18 11/22/18 18:38 18:38 18:38 WBC 8.5 RBC 4.22 L Hgb 13.6 Hct 40.0 MCV 94.9 H MCH 32.3 H MCHC 34.0 RDW 13.4 Plt Count 341 MPV 7.8 Neut % (Auto) 69.2 Lymph % (Auto) 23.6 [place] % (Auto) 5.8 Eos % (Auto) 0.9 Baso % (Auto) 0.5 Neut # (Auto) 5.9 Lymph # (Auto) 2.0 [place] # (Auto) 0.5 Eos # (Auto) 0.1 Baso # (Auto) 0.0 Sodium 136 Potassium 4.7 Chloride 99 Carbon Dioxide 25 Anion Gap 18 BUN 31 H Creatinine 2.0 H Est GFR ( Amer) 41 Est GFR (Non-Af Amer) 34 POC Glucose (mg/dL) Random Glucose 343 H D Calcium 9.2 Total Bilirubin 0.3 AST 22 ALT 12 L D Alkaline Phosphatase 86 Troponin I < 0.0120 NT-Pro-B Natriuret Pep 56.1 Total Protein 7.7 Albumin 4.5 Globulin 3.2 Albumin/Globulin Ratio 1.4 Urine Color Straw Urine Clarity Clear Urine pH 6.0 Ur Specific [place] 1.027 Urine Protein Negative Urine Glucose (UA) 3+ H Urine Ketones Negative Urine Blood Negative Urine Nitrate Negative Urine Bilirubin Negative Urine Urobilinogen Normal Ur Leukocyte Esterase Neg Urine WBC (Auto) < 1 Urine RBC (Auto) < 1 11/22/18 20:40 WBC RBC Hgb Hct MCV MCH MCHC RDW Plt Count MPV Neut % (Auto) Lymph % (Auto) [place] % (Auto) Eos % (Auto) Baso % (Auto) Neut # (Auto) Lymph # (Auto) [place] # (Auto) Eos # (Auto) Baso # (Auto) Sodium Potassium Chloride Carbon Dioxide Anion Gap BUN Creatinine Est GFR ( Amer) Est GFR (Non-Af Amer) POC Glucose (mg/dL) 270 H Random Glucose Calcium Total Bilirubin AST ALT Alkaline Phosphatase Troponin I NT-Pro-B Natriuret Pep Total Protein Albumin Globulin Albumin/Globulin Ratio Urine Color Urine Clarity Urine pH Ur Specific [place] Urine Protein Urine Glucose (UA) Urine Ketones Urine Blood Urine Nitrate Urine Bilirubin Urine Urobilinogen Ur Leukocyte Esterase Urine WBC (Auto) Urine RBC (Auto) <Analia Fishman N - Last Filed: 11/23/18 14:03> History of Present Illness - History of Present Illness History of Present Illness: 63 YEARS OLD ADMITTED FOR R. FOOT INFECTION FROM DM FEW WEEKS PT HAS ULCERATION OF 3/5 TOES OF R. FOOT BEING TREATED OUT PT. BY DREDGE PUMPER WITH NO IMPROVEMENT PT IS INHOUSE FOR FOR IV AB H/O HTN HHD T2DM Present on Admission - Present on Admission Any Indicators Present on Admission: No Review of Systems - Review of Systems All systems: reviewed and no additional remarkable complaints except (R. FOOT PAIN) Past Patient History - Infectious Disease Hx of Infectious Diseases: None - Past Social History Smoking Status: Never Smoked - CARDIAC Hx Hypertension: Yes - ENDOCRINE/METABOLIC Hx Endocrine Disorders: Yes Hx Diabetes Mellitus Type 2: Yes - MUSCULOSKELETAL/RHEUMATOLOGICAL Hx Falls: No - GASTROINTESTINAL Hx Gastritis: Yes - GENITOURINARY/GYNECOLOGICAL Hx Prostate Problems: Yes - PSYCHIATRIC Hx Substance Use: No - SURGICAL HISTORY Hx Surgeries: No - ANESTHESIA Hx Anesthesia: No Hx Anesthesia Reactions: No Hx Malignant Hyperthermia: No Physical Exam - Head Exam Head Exam: ATRAUMATIC, NORMAL INSPECTION, NORMOCEPHALIC - Eye Exam Eye Exam: EOMI, Normal appearance, PERRL - ENT Exam ENT Exam: Mucous Membranes Moist, Normal Exam - Neck Exam Neck exam: Positive for: Normal Inspection - Respiratory Exam Respiratory Exam: Clear to Auscultation Bilateral, NORMAL BREATHING PATTERN - Cardiovascular Exam Cardiovascular Exam: REGULAR RHYTHM - GI/Abdominal Exam GI & Abdominal Exam: Normal Bowel Sounds, Soft. absent: Tenderness - Extremities Exam Extremities exam: Positive for: full ROM (R. FOOT 3RD TOE SUPERFICIAL ULCERATION DRY. 5 TH TOE NECROTIC ULCER ). Negative for: calf tenderness Results - Vital Signs Recent Vital Signs: Last Vital Signs Temp 99 F 11/22/18 16:38 Pulse 102 H 11/22/18 16:38 Resp 18 11/22/18 16:38 BP 178/73 H 11/22/18 16:38 Pulse Ox 97 11/22/18 20:26 - Labs Result Diagrams: 11/23/18 06:51 11/23/18 06:51 Labs: Laboratory Results - last 24 hr 11/22/18 11/22/18 11/22/18 18:38 18:38 18:38 WBC 8.5 RBC 4.22 L Hgb 13.6 Hct 40.0 MCV 94.9 H MCH 32.3 H MCHC 34.0 RDW 13.4 Plt Count 341 MPV 7.8 Neut % (Auto) 69.2 Lymph % (Auto) 23.6 [place] % (Auto) 5.8 Eos % (Auto) 0.9 Baso % (Auto) 0.5 Neut # (Auto) 5.9 Lymph # (Auto) 2.0 [place] # (Auto) 0.5 Eos # (Auto) 0.1 Baso # (Auto) 0.0 Sodium 136 Potassium 4.7 Chloride 99 Carbon Dioxide 25 Anion Gap 18 BUN 31 H Creatinine 2.0 H Est GFR ( Amer) 41 Est GFR (Non-Af Amer) 34 Random Glucose 343 H D Calcium 9.2 Total Bilirubin 0.3 AST 22 ALT 12 L D Alkaline Phosphatase 86 Troponin I < 0.0120 NT-Pro-B Natriuret Pep 56.1 Total Protein 7.7 Albumin 4.5 Globulin 3.2 Albumin/Globulin Ratio 1.4 Urine Color Straw Urine Clarity Clear Urine pH 6.0 Ur Specific [place] 1.027 Urine Protein Negative Urine Glucose (UA) 3+ H Urine Ketones Negative Urine Blood Negative Urine Nitrate Negative Urine Bilirubin Negative Urine Urobilinogen Normal Ur Leukocyte Esterase Neg Urine WBC (Auto) < 1 Urine RBC (Auto) < 1 Assessment & Plan (1) Diabetic ulcer of toe Status: Acute
[2018-11-22] MEDS: (Novolin R) Insulin Human Regular 100 units/ml vial SC SCH (22:18)
--- NOTE | 2018-11-22 22:58 | CP.PCM.CON ---
History of Present Illness - History of Present Illness History of Present Illness: INFECTIOUS DISEASE CONSULT. HPI; 63 y/o male presents to the ED, referred by podiatry Dr. Naren Lakhani DPM for inpat ient evaluation of ulcers to the right 3rd and 5th distal toes. Patient was seen in the office earlier today. Patient notes the ulcers have been present for over 1 month. Also reports a foul smell coming from the area. Otherwise patient denies any numbness, weakness, tingling, or fevers. PT SEEN BY PODIATRY. RECEIVED A DOSE OF CEFOTRIAXONE/AND VANCOMYCIN.AND TOLERATED IT. INFECTIOUS DISEASE CONSULT REQUESTED BY PMD FOR RT FOOT NONHEALING DIABETIC FOOT ULCERS. PT DENIES ANY FEVER OR CHILLS. PMH: Diabetes, Gastritis, HTN, Hyperlipidemia Surgical History: No Surg Hx ALLERGY; PATIENT STATES HE TOLERATES BY MOUTH AMPICILLIN WITHOUT ANY SIDE EFFECTS. STATES HE CANNOT TAKE iv PENICILLIN. PRESENTLY TOLERATED CEFTRIAXONE WITHOUT ANY SIDE EFFECTS OR HYPERSENSITIVITY REACTION. - [facility] Procedures (04/04/18) INSPECTION OF LOWER INTESTINAL TRACT, ENDO (04/04/18) Family History: States: No Known Family Hx - Social History Hx Alcohol Use: No Hx Substance Use: No - Immunization History Hx Tetanus Toxoid Vaccination: No Hx Influenza Vaccination: No Hx Pneumococcal Vaccination: Yes ALLERGY: PCN BUT TOLERATED IST DOSE OF ROCEPHIN IN ER. Review of Systems - Constitutional Constitutional: absent: Chills, Fever - EENT Eyes: absent: Change in Vision, Floaters Nose/Mouth/Throat: absent: Dysphagia, Mouth Lesions - Cardiovascular Cardiovascular: absent: Chest Pain, Dyspnea - Respiratory Respiratory: absent: Cough, Hemoptysis, Dyspnea on Exertion - Gastrointestinal Gastrointestinal: absent: Abdominal Pain, Diarrhea - Musculoskeletal Musculoskeletal: As Per HPI, Abnormal Gait - Integumentary Integumentary: Skin Ulcer (rt foot 3rd/5th toe ulcers) - Neurological Neurological: absent: Dizziness, Headaches - Hematologic/Lymphatic Hematologic: As Per HPI. absent: Easy Bleeding, Easy Bruising, Lymphadenopathy Past Patient History - Infectious Disease Hx of Infectious Diseases: None - Past Social History Smoking Status: Never Smoked - CARDIAC Hx Hypertension: Yes - ENDOCRINE/METABOLIC Hx Endocrine Disorders: Yes Hx Diabetes Mellitus Type 2: Yes - MUSCULOSKELETAL/RHEUMATOLOGICAL Hx Falls: No - GASTROINTESTINAL Hx Gastritis: Yes - GENITOURINARY/GYNECOLOGICAL Hx Prostate Problems: Yes - PSYCHIATRIC Hx Substance Use: No - SURGICAL HISTORY Hx Surgeries: No - ANESTHESIA Hx Anesthesia: No Hx Anesthesia Reactions: No Hx Malignant Hyperthermia: No Meds Allergies/Adverse Reactions: Allergies Allergy/AdvReac Type Severity Reaction Status Date / Time Penicillins Allergy Verified 11/22/18 16:37 - Medications Medications: Current Medications Home Med (Flomax) 0.4 mg PO DAILY [facility] Home Med (Glimepiride) 10 mg PO DAILY [facility] Home Med (Pravastatin Sodium) 20 mg PO DAILY [facility] Home Med (Ranitidine Hcl) 150 mg PO BID [facility] Insulin Human Regular (Novolin R) 0 unit [place] [facility]; Protocol Last Admin: 11/22/18 22:18 Dose: Not Given Losartan Potassium (Cozaar) 50 mg PO DAILY [facility] Metformin HCl (Glucophage) 500 mg PO BIDCC [facility] Metoclopramide HCl (Reglan) 10 mg PO TID PRN PRN Reason: Nausea/Vomiting Mupirocin (Bactroban Ointment) 0 gm TOP DAILY [facility] Physical Exam - Constitutional Appears: No Acute Distress - Head Exam Head Exam: NORMAL INSPECTION - Eye Exam Eye Exam: EOMI, PERRL - ENT Exam ENT Exam: Normal Oropharynx - Neck Exam Neck exam: Positive for: Normal Inspection - Respiratory Exam Respiratory Exam: Clear to Auscultation Bilateral, NORMAL BREATHING PATTERN - Cardiovascular Exam Cardiovascular Exam: REGULAR RHYTHM, +S1, +S2 - GI/Abdominal Exam GI & Abdominal Exam: Normal Bowel Sounds, Soft. absent: Organomegaly - Extremities Exam Extremities exam: Positive for: pedal pulses present (rt foot +ve dressing . 3rd/5th toe ulcers [id number].). Negative for: calf tenderness, pedal edema - Neurological Exam Neurological exam: Alert, CN II-XII Intact, Oriented x3, Reflexes Normal - Psychiatric Exam Psychiatric exam: Normal Mood - Skin Skin Exam: Normal Color, Warm Results - Vital Signs Recent Vital Signs: Last Vital Signs Temp 98.7 F 11/22/18 20:37 Pulse 84 11/22/18 20:37 Resp 18 11/22/18 16:38 BP 133/66 11/22/18 20:37 Pulse Ox 97 11/22/18 21:15 - Labs Result Diagrams: 11/23/18 06:51 11/23/18 06:51 Labs: Laboratory Results - last 24 hr 11/22/18 11/22/18 11/22/18 18:38 18:38 18:38 WBC 8.5 RBC 4.22 L Hgb 13.6 Hct 40.0 MCV 94.9 H MCH 32.3 H MCHC 34.0 RDW 13.4 Plt Count 341 MPV 7.8 Neut % (Auto) 69.2 Lymph % (Auto) 23.6 [place] % (Auto) 5.8 Eos % (Auto) 0.9 Baso % (Auto) 0.5 Neut # (Auto) 5.9 Lymph # (Auto) 2.0 [place] # (Auto) 0.5 Eos # (Auto) 0.1 Baso # (Auto) 0.0 Sodium 136 Potassium 4.7 Chloride 99 Carbon Dioxide 25 Anion Gap 18 BUN 31 H Creatinine 2.0 H Est GFR ( Amer) 41 Est GFR (Non-Af Amer) 34 POC Glucose (mg/dL) Random Glucose 343 H D Calcium 9.2 Total Bilirubin 0.3 AST 22 ALT 12 L D Alkaline Phosphatase 86 Troponin I < 0.0120 NT-Pro-B Natriuret Pep 56.1 Total Protein 7.7 Albumin 4.5 Globulin 3.2 Albumin/Globulin Ratio 1.4 Urine Color Straw Urine Clarity Clear Urine pH 6.0 Ur Specific [place] 1.027 Urine Protein Negative Urine Glucose (UA) 3+ H Urine Ketones Negative Urine Blood Negative Urine Nitrate Negative Urine Bilirubin Negative Urine Urobilinogen Normal Ur Leukocyte Esterase Neg Urine WBC (Auto) < 1 Urine RBC (Auto) < 1 11/22/18 20:40 WBC RBC Hgb Hct MCV MCH MCHC RDW Plt Count MPV Neut % (Auto) Lymph % (Auto) [place] % (Auto) Eos % (Auto) Baso % (Auto) Neut # (Auto) Lymph # (Auto) [place] # (Auto) Eos # (Auto) Baso # (Auto) Sodium Potassium Chloride Carbon Dioxide Anion Gap BUN Creatinine Est GFR ( Amer) Est GFR (Non-Af Amer) POC Glucose (mg/dL) 270 H Random Glucose Calcium Total Bilirubin AST ALT Alkaline Phosphatase Troponin I NT-Pro-B Natriuret Pep Total Protein Albumin Globulin Albumin/Globulin Ratio Urine Color Urine Clarity Urine pH Ur Specific [place] Urine Protein Urine Glucose (UA) Urine Ketones Urine Blood Urine Nitrate Urine Bilirubin Urine Urobilinogen Ur Leukocyte Esterase Urine WBC (Auto) Urine RBC (Auto) - Imaging and Cardiology Chest x-ray Status: Report reviewed by me (quentin) Assessment & Plan (1) Diabetic ulcer of toe Assessment and Plan: Pancultures Wound culture left foot ulcer. ESR.CRP. Continue IV ceftriaxone 1 g once a day daily as patient tolerated the dose very well without any side effects. No rash or itching noted and blood pressure was stable as per RN. Patient to be observed closely for any reactions and notify as soon as possible if any. Add IV Cleocin 300 mg IV piggyback every 8 hourly for MRSA coverage. Will avoid vancomycin for now in view off nephrotoxicity. Will follow arterial studies of both lower extremity as ordered. Will also get three-phase bone scan to rule out any osseous process or osteomyelitis. Local wound care as per podiatry. Status: Acute (2) Renal insufficiency Assessment and Plan: REPEAT bmp IN A.M. Status: Acute (3) Diabetes Status: Acute
[2018-11-22] MEDS ORDERED: Clindamycin 300 MG in Sodium Chloride 0.9% 50 ML IVPB SCH (23:15)
[2018-11-23] MEDS ORDERED: Clindamycin 300 MG in Sodium Chloride 0.9% 50 ML IVPB SCH
[2018-11-23 01:00] VITALS: RESP 20
[2018-11-23] MEDS ORDERED: CLINDAMYCIN IVPB SCH (01:00)
[2018-11-23] MEDS ORDERED: SODIUM CHLORIDE 0.9% IVPB SCH (01:00)
[2018-11-23] MEDS: Clindamycin 300 MG in Sodium Chloride 0.9% 50 ML IVPB SCH ×3 (01:47→17:41)
[2018-11-23 07:23] LABS: ALB/GLOB RATIO 1.5 (1.0-2.1); ALBUMIN 3.8 g/dL (3.5-5.0); ALT/SGPT 16 U/L (21-72); AST/SGOT 18 U/L (17-59); BLOOD UREA NITROGEN 31 mg/dL (9-20); CALCIUM 8.8 mg/dl (8.6-10.4); GFR NON-AFRICAN AMERICAN > 60
[2018-11-23 07:27] LABS: BASO % 0.5 % (0.0-2.0); EOS # 0.1 K/uL (0.0-0.7); HEMOGLOBIN 12.9 g/dL (12.0-18.0); LYMPH # 2.2 K/uL (1.0-4.3); LYMPH % 34.6 % (20.0-40.0); MEAN CORPUSCULAR HEMOGLOBIN 32.5 pg (27.0-31.0); MEAN CORPUSCULAR HGB CONC 33.3 g/dL (33.0-37.0); MEAN PLATELET VOLUME 8.2 fL (7.2-11.7); MONO # 0.4 K/uL (0.0-0.8); MONO % 5.8 % (0.0-10.0); NEUT # 3.7 K/uL (1.8-7.0); NEUT % 57.1 % (50.0-75.0); NRBC % 0.1 % (0.0-2.0); RBC 3.97 Mil/uL (4.40-5.90); RED CELL DISTRIBUTION WIDTH 13.6 % (11.5-14.5); WHITE BLOOD COUNT 6.5 K/uL (4.8-10.8)
[2018-11-23 07:31] LABS: MEAN CELL VOLUME 97.5 fL (80.0-94.0)
[2018-11-23] MEDS: (Novolin R) Insulin Human Regular 100 units/ml vial SC SCH ×4 (08:27→21:26)
--- NOTE | 2018-11-23 08:49 | RAD ---
Date of service: 11/22/2018 PROCEDURE: Right Foot Radiographs. HISTORY: DM ulcers tip of R 3/5 toes COMPARISON: None. FINDINGS: BONES: Bone alignment and mineralization are normal. There is no acute displaced fracture or bone destruction. There is a prominent plantar calcaneal spur. JOINTS: Normal. SOFT TISSUES: There is irregular soft tissue defect in the tip of the little toe with soft tissue swelling. OTHER FINDINGS: Atherosclerotic vascular calcifications are present. IMPRESSION: No radiographic evidence for osteomyelitis. Irregular soft tissue defect in the tip of the little toe with soft tissue swelling consistent with ulceration and cellulitis.
--- NOTE | 2018-11-23 08:50 | RAD ---
Date of service: 11/22/2018 PROCEDURE: CHEST RADIOGRAPH, 1 VIEW HISTORY: SOB COMPARISON: None available. FINDINGS: LUNGS: The lungs are well inflated and clear. PLEURA: No pneumothorax or pleural effusion. CARDIOVASCULAR: The heart is normal in size. There are aortic atherosclerotic calcifications present. OSSEOUS STRUCTURES: Within normal limits for the patient's age. VISUALIZED UPPER ABDOMEN: Normal. OTHER FINDINGS: None. IMPRESSION: No active pulmonary disease.
[2018-11-23] MEDS ORDERED: cefTRIAXone IV 1 gm in Dextros 1 GM in Dextrose 5% In Water 50 ML IVPB SCH ×2 (10:00)
[2018-11-23] MEDS ORDERED: GLIMEPIRIDE PO SCH ×2 (10:00)
--- NOTE | 2018-11-23 10:22 | CP.PCM.PN ---
Subjective - Date & Time of Evaluation Date of Evaluation: 11/23/18 Time of Evaluation: 10:16 - Subjective Subjective: Podiatry Consult Note - Dr. Bright 63 year old male patient PMHx NIDDM, HTN, HLD seen in ED for infected 3rd and 5th digits, right foot. PPatient AAOx3 and in NAD. Patient denies pain to the lower extremity. Denies n/f/d/c/sob/del toro/cp. No other complaints. Objective - Vital Signs/Intake and Output Vital Signs (last 24 hours): Temp Pulse Resp BP Pulse Ox 98.6 F 82 20 118/45 L 96 11/23/18 08:33 11/23/18 08:33 11/23/18 08:33 11/23/18 08:33 11/23/18 08:33 Intake and Output: 11/23/18 11/23/18 06:59 18:59 Intake Total 250 Balance 250 - Medications Medications: Current Medications Enoxaparin Sodium (Lovenox) 40 mg SC DAILY [facility] Famotidine (Pepcid) 20 mg PO DAILY [facility] Home Med (Glimepiride) 10 mg PO DAILY [facility] Ceftriaxone Sodium 1 gm/ (Dextrose) 100 mls @ 50 mls/30 min IVPB DAILY [facility]; Protocol Clindamycin Phosphate 300 mg/ (Sodium Chloride) 52 mls @ 100 mls/hr IVPB Q8H [facility]; Protocol Last Admin: 11/23/18 08:23 Dose: 100 mls/hr Insulin Human Regular (Novolin R) 0 unit SC ACHS [facility]; Protocol Last Admin: 11/23/18 08:27 Dose: 4 units Losartan Potassium (Cozaar) 50 mg PO DAILY [facility] Metformin HCl (Glucophage) 500 mg PO BIDCC [facility] Last Admin: 11/23/18 08:26 Dose: 500 mg Metoclopramide HCl (Reglan) 10 mg PO TID PRN PRN Reason: Nausea/Vomiting Mupirocin (Bactroban Ointment) 0 gm TOP DAILY [facility] Rosuvastatin Calcium (Crestor) 2.5 mg PO HS [facility] Saccharomyces Boulardii (Florastor) 250 mg PO HS [facility] Tamsulosin HCl (Flomax) 0.4 mg PO DAILY [facility] - Labs Labs: 11/23/18 06:51 11/23/18 06:51 - Constitutional Appears: Well, Non-toxic - Head Exam Head Exam: ATRAUMATIC, NORMAL INSPECTION - Extremities Exam Additional comments: RLE focused physical exam: VASC: DP and PT pulses palpable 1/4. CFT <3 seconds to digits, unable to asses 3rd and 5th digits. Temperature gradient warm to warm, no significant increase in warmth noted to digits. Mild nonpitting edema noted to 5th digit. NEURO: Light touch and protective sensation diminished. DERM: 1) Full thickness ulceration noted to distal tuft of 3rd digit with periwound erythema - ulcer is 100% fibrotic, no drainage, no purulence, no fluctuance, no malodor. 2) Full thickness ulcer noted to distal tuft of 5th digit with periwound erythema and dusky changes - ulcer is 100% necrotic, no drainage, no purulence, no fluctuance, mild malodor. ORTHO: Pain on palpation noted to wounds. - Neurological Exam Neurological Exam: Alert, Oriented x3 Assessment and Plan - Assessment and Plan (Free Text) Assessment: 63M PMHx NIDDM, HTN, HLD, gastritis with right 3rd and 5th digit ulcers, resolving erythema Plan: Patient seen and evaluated Discussed with attending, Dr. Bright Afebrile, WBC 8.5 ESR 18 Right foot XR reviewed: no significant cortical destruction Continue clindamycin and ceftriaxone ID on board; appreciate recs Right foot wound culture taken, f/u GIAN/PVR ordered; pending Podiatry will continue to follow while in house
[2018-11-23] MEDS: Enoxaparin 40 mg Syringe SC SCH (10:56)
--- NOTE | 2018-11-23 14:07 | CP.PCM.PN ---
Subjective - Date & Time of Evaluation Date of Evaluation: 11/23/18 Time of Evaluation: 14:06 - Subjective Subjective: MILD PAIN VS STABLE ULCERS ON 12/04 R. TOE CONT IV AB AND LOCAL WOUND CARE Objective - Vital Signs/Intake and Output Vital Signs (last 24 hours): Temp Pulse Resp BP Pulse Ox 98.6 F 82 20 118/45 L 96 11/23/18 08:33 11/23/18 08:33 11/23/18 08:33 11/23/18 08:33 11/23/18 08:33 Intake and Output: 11/23/18 11/23/18 11:59 23:59 Intake Total 250 Balance 250 - Medications Medications: Current Medications Enoxaparin Sodium (Lovenox) 40 mg SC DAILY [facility] Last Admin: 11/23/18 10:56 Dose: 40 mg Famotidine (Pepcid) 20 mg PO DAILY [facility] Last Admin: 11/23/18 10:56 Dose: 20 mg Ceftriaxone Sodium 1 gm/ (Dextrose) 100 mls @ 50 mls/30 min IVPB DAILY [facility]; Protocol Last Admin: 11/23/18 12:00 Dose: 50 mls/30 min Clindamycin Phosphate 300 mg/ (Sodium Chloride) 52 mls @ 100 mls/hr IVPB Q8H [facility]; Protocol Last Admin: 11/23/18 08:23 Dose: 100 mls/hr Insulin Human Regular (Novolin R) 0 unit SC ACHS [facility]; Protocol Last Admin: 11/23/18 11:43 Dose: 6 units Losartan Potassium (Cozaar) 50 mg PO DAILY [facility] Last Admin: 11/23/18 10:57 Dose: 50 mg Metformin HCl (Glucophage) 500 mg PO BIDCC [facility] Last Admin: 11/23/18 08:26 Dose: 500 mg Metoclopramide HCl (Reglan) 10 mg PO TID PRN PRN Reason: Nausea/Vomiting Mupirocin (Bactroban Ointment) 0 gm TOP DAILY [facility] Last Admin: 11/23/18 10:57 Dose: 1 applic Rosuvastatin Calcium (Crestor) 2.5 mg PO HS [facility] Saccharomyces Boulardii (Florastor) 250 mg PO HS [facility] Tamsulosin HCl (Flomax) 0.4 mg PO DAILY [facility] Last Admin: 11/23/18 10:56 Dose: 0.4 mg - Labs Labs: 11/23/18 06:51 11/23/18 06:51 Assessment and Plan (1) Diabetic ulcer of toe Status: Acute
--- NOTE | 2018-11-23 16:52 | CARD ---
APPROVED REPORT Date of service: 11/22/2018 EKG Measurement Heart [id number] <Conclusion> Normal sinus rhythm Possible Inferior infarct, age undetermined Abnormal ECG
--- NOTE | 2018-11-23 17:13 | VASCLAB ---
Date of service: 11/23/2018 STUDY DESCRIPTION: Lower Extremity Arterial Exam (PVR). HISTORY: nonhealing ulcer right 3rd and 5th digits PRIORS: None. TECHNIQUE: Pulse volume recording waveforms and segmental pressures of bilateral lower extremities at multiple levels were obtained. Ankle Brachial Indices (ABIs) were calculated. Report prepared by MANDY Viramontes, RVT RIGHT LOWER EXTREMITY: * Brachial artery: Pressure - 130 mmHg. * High thigh: Pressure - mmHg: Ratio - : PVR waveform - Pulsatile * Low thigh: Pressure - mmHg: Ratio - PVR waveform: Pulsatile * Calf: Pressure - 150 mmHg: Ratio - 1.09 PVR waveform: Pulsatile * Posterior tibial Artery: Pressure - 132 mmHg: Ratio - 0.93 PVR waveform: Pulsatile * Dorsalis pedis Artery: Pressure - 172 mmHg: Ratio - 1.25 PVR waveform: Pulsatile * Great toe: Pressure - mmHg: Ratio - PVR waveform: Ankle brachial index (GIAN): 1.25 LEFT LOWER EXTREMITY: * Brachial artery: Pressure - 138 mmHg. * High thigh: Pressure - mmHg: Ratio - : PVR waveform - Pulsatile * Low thigh: Pressure - mmHg: Ratio - PVR waveform: Pulsatile * Calf: Pressure - 159 mmHg: Ratio - 1.15 PVR waveform: Pulsatile * Posterior tibial Artery: Pressure - 140 mmHg: Ratio - 1.01 PVR waveform: Pulsatile * Dorsalis pedis Artery: Pressure - 158 mmHg: Ratio - 1.14 PVR waveform: Pulsatile * Great toe: Pressure - mmHg: Ratio - PVR waveform: Ankle brachial index (GIAN): 1.14 OTHER FINDINGS: Right: Left: IMPRESSION: Right: There was no evidence of hemodynamically significant arterial insufficiency in the right lower extremity. Left: There was no evidence of hemodynamically significant arterial insufficiency in the left lower extremity.
--- NOTE | 2018-11-23 17:48 | NM ---
Date of service: 11/23/2018 PROCEDURE: Three-phase bone Scan HISTORY: R/O OSTEOMYLITIS RT FOOT COMPARISON: 11/22/2018 right foot radiographs. TECHNIQUE: Following administration of 23.4 miCu of Tc MDP three-phase bone scan attention lower extremities, right foot performed per protocol. FINDINGS: Flow component: Symmetrical flow to the lower extremities including ankles and feet. Blood pool component: Increasing accumulation of radionuclide right ankle and from the knees to the left. Delayed images at 3:00: Symmetrical retention of radionuclide lower extremities from knees to the toes. Other findings: None. IMPRESSION: Negative study for acute osseous process. Particular attention directed to the left foot/toes.
--- NOTE | 2018-11-23 20:31 | CP.PCM.PN ---
Subjective - Date & Time of Evaluation Date of Evaluation: 11/23/18 Time of Evaluation: 20:31 - Subjective Subjective: CHIEF COMPLAINTS TODAY : afebrile, c/o pain right foot distal toes. ROS. HEENT : N. Resp : No cough, wheezing ,pleuritic CP ,or hemoptysis Cardio : No anginal CP, PND, orthopnea, palpitation GI : No abd.pain, n/v ,diarrhea or GI bleeding . 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 Musculoskel : No joint swelling , Derm : No rash Psych : Normal affect. Ext : No swelling ,calf pain . RT. FOOT ULCERS THIRD AND FIFTH TOES WITH MINIMAL DRAINAGE. PE. Pt. is alert awake in no distress. V.S As noted in the chart Head ,ear nose,throat and eyes : Normal. Neck : Supple with normal carotids. Lungs: Clear air entry. Heart : S1 & S2 normal with S4. No murmur. Abd : Soft non tender with normal bowel sounds. Neuro : Moves all ext. with no localized deficit. Ext : No edema with intact pulses.Non tender calves .RT. FOOT ULCERS THIRD AND FIFTH TOES WITH MINIMAL DRAINAGE.+ve erythema and tenderness on pressure. Derm : No rashes or decubitus ulcer. LABS/RADIOLOGY: WBC 6.5 Sedimentation rate 18 Creatinine 1.0 better. 3-phase bone scan negative for osseous process. Arterial peripheral vascular studies LE, RT,LEFT -ve for arterial insuf ficiency. ASSESSMENT DIABETIC FOOT ULCERS CELLULITIS RIGHT FOOT RENAL INSUFFICIENCY. DIABETES MELLITUS-2. /PLAN : CONTINUE iv ROCEPHIN 1 G ONCE A DAY DAILY 11/22/18 CONTINUE iv CLEOCIN 300 MG iv PIGGYBACK EVERY 8 HOURLY 11/22/18. FOLLOW-UP CULTURES TO ADJUST ANTIBIOTICS. LOCAL WOUND CARE AND DEBRIDEMENT PER PODIATRY. Objective - Vital Signs/Intake and Output Vital Signs (last 24 hours): Temp Pulse Resp BP Pulse Ox 97.9 F 77 20 154/74 H 98 11/23/18 15:00 11/23/18 15:00 11/23/18 15:00 11/23/18 15:00 11/23/18 15:00 Intake and Output: 11/23/18 11/24/18 18:59 06:59 Intake Total 600 Balance 600 - Medications Medications: Current Medications Enoxaparin Sodium (Lovenox) 40 mg SC DAILY [facility] Last Admin: 11/23/18 10:56 Dose: 40 mg Famotidine (Pepcid) 20 mg PO DAILY [facility] Last Admin: 11/23/18 10:56 Dose: 20 mg Ceftriaxone Sodium 1 gm/ (Dextrose) 100 mls @ 50 mls/30 min IVPB DAILY [facility]; Protocol Last Admin: 11/23/18 12:00 Dose: 50 mls/30 min Clindamycin Phosphate 300 mg/ (Sodium Chloride) 52 mls @ 100 mls/hr IVPB Q8H [facility]; Protocol Last Admin: 11/23/18 17:41 Dose: 100 mls/hr Insulin Human Regular (Novolin R) 0 unit SC ACHS [facility]; Protocol Last Admin: 11/23/18 17:41 Dose: 4 units Losartan Potassium (Cozaar) 50 mg PO DAILY [facility] Last Admin: 11/23/18 10:57 Dose: 50 mg Metformin HCl (Glucophage) 500 mg PO BIDCC [facility] Last Admin: 11/23/18 17:35 Dose: 500 mg Metoclopramide HCl (Reglan) 10 mg PO TID PRN PRN Reason: Nausea/Vomiting Mupirocin (Bactroban Ointment) 0 gm TOP DAILY [facility] Last Admin: 11/23/18 10:57 Dose: 1 applic Rosuvastatin Calcium (Crestor) 2.5 mg PO HS [facility] Saccharomyces Boulardii (Florastor) 250 mg PO HS [facility] Tamsulosin HCl (Flomax) 0.4 mg PO DAILY [facility] Last Admin: 11/23/18 10:56 Dose: 0.4 mg - Labs Labs: 11/23/18 06:51 11/23/18 06:51 Assessment and Plan (1) Diabetic ulcer of toe Status: Acute (2) Non-healing ulcer of foot Status: Acute
[2018-11-23] MEDS: Rosuvastatin Calcium 2.5 mg Tab PO SCH (21:20)
[2018-11-23] MEDS: Saccharomyces Boulardi 250 mg Cap PO SCH (21:20)
[2018-11-24] MEDS: Clindamycin 300 MG in Sodium Chloride 0.9% 50 ML IVPB SCH ×3 (01:16→17:13)
[2018-11-24 07:06] LABS: BASO % 0.6 % (0.0-2.0); EOS # 0.2 K/uL (0.0-0.7); EOS % 2.4 % (0.0-4.0); LYMPH # 2.4 K/uL (1.0-4.3); LYMPH % 35.4 % (20.0-40.0); MEAN CELL VOLUME 97.2 fL (80.0-94.0); MEAN CORPUSCULAR HEMOGLOBIN 33.1 pg (27.0-31.0); MEAN CORPUSCULAR HGB CONC 34.1 g/dL (33.0-37.0); MEAN PLATELET VOLUME 8.3 fL (7.2-11.7); MONO # 0.4 K/uL (0.0-0.8); MONO % 5.6 % (0.0-10.0); NEUT # 3.7 K/uL (1.8-7.0); RBC 3.94 Mil/uL (4.40-5.90); RED CELL DISTRIBUTION WIDTH 13.3 % (11.5-14.5); WHITE BLOOD COUNT 6.7 K/uL (4.8-10.8)
[2018-11-24 07:57] LABS: ALB/GLOB RATIO 1.4 (1.0-2.1); ALBUMIN 3.8 g/dL (3.5-5.0); ALT/SGPT 13 U/L (21-72); AST/SGOT 15 U/L (17-59); BLOOD UREA NITROGEN 25 mg/dL (9-20); CALCIUM 8.9 mg/dl (8.6-10.4); GFR NON-AFRICAN AMERICAN > 60
[2018-11-24] MEDS: (Novolin R) Insulin Human Regular 100 units/ml vial SC SCH ×4 (08:35→21:30)
[2018-11-24] MEDS: Enoxaparin 40 mg Syringe SC SCH (09:58)
[2018-11-24] MEDS: cefTRIAXone IV 1 gm in Dextros 50 ML IVPB SCH (10:00)
--- NOTE | 2018-11-24 11:39 | CP.PCM.PN ---
Subjective - Date & Time of Evaluation Date of Evaluation: 11/24/18 Time of Evaluation: 11:35 - Subjective Subjective: Podiatry Progress Note - Dr. Bright 63 year old male patient PMHx NIDDM, HTN, HLD seen for infected 3rd and 5th digits, right foot. Patient AAOx3 and in NAD. Patient denies pain to the lower extremity. Denies n/f/d/c/sob/del toro/cp. No other complaints. Objective - Vital Signs/Intake and Output Vital Signs (last 24 hours): Temp Pulse Resp BP Pulse Ox 97.4 F L 76 20 132/73 96 11/24/18 08:46 11/24/18 08:46 11/24/18 08:46 11/24/18 08:46 11/24/18 08:46 Intake and Output: 11/24/18 11/24/18 06:59 18:59 Intake Total 740 Balance 740 - Medications Medications: Current Medications Enoxaparin Sodium (Lovenox) 40 mg SC DAILY [facility] Last Admin: 11/24/18 09:58 Dose: 40 mg Famotidine (Pepcid) 20 mg PO DAILY [facility] Last Admin: 11/24/18 09:57 Dose: 20 mg Clindamycin Phosphate 300 mg/ (Sodium Chloride) 52 mls @ 100 mls/hr IVPB Q8H [facility]; Protocol Last Admin: 11/24/18 09:57 Dose: 100 mls/hr Ceftriaxone Sodium (Rocephin Iv 1 Gm Duplex) 50 mls @ 50 mls/30 min IVPB DAILY [facility]; Protocol Last Admin: 11/24/18 10:00 Dose: 50 mls/30 min Insulin Human Regular (Novolin R) 0 unit SC ACHS [facility]; Protocol Last Admin: 11/24/18 08:35 Dose: 4 units Losartan Potassium (Cozaar) 50 mg PO DAILY [facility] Last Admin: 11/24/18 09:58 Dose: 50 mg Metformin HCl (Glucophage) 500 mg PO BIDCC [facility] Last Admin: 11/24/18 08:35 Dose: 500 mg Metoclopramide HCl (Reglan) 10 mg PO TID PRN PRN Reason: Nausea/Vomiting Mupirocin (Bactroban Ointment) 0 gm TOP DAILY [facility] Last Admin: 11/24/18 09:58 Dose: 1 applic Rosuvastatin Calcium (Crestor) 2.5 mg PO HS [facility] Last Admin: 11/23/18 21:20 Dose: 2.5 mg Saccharomyces Boulardii (Florastor) [address] [facility] Last Admin: 11/23/18 21:20 Dose: 250 mg Tamsulosin HCl (Flomax) 0.4 mg PO DAILY [facility] Last Admin: 11/24/18 09:57 Dose: 0.4 mg - Labs Labs: 11/24/18 06:47 11/24/18 06:47 - Constitutional Appears: Well, Non-toxic - Head Exam Head Exam: ATRAUMATIC - Eye Exam Eye Exam: Normal appearance - Extremities Exam Additional comments: RLE focused physical exam: VASC: DP and PT pulses palpable 1/4. CFT <3 seconds to digits, unable to asses 3rd and 5th digits. Temperature gradient warm to warm, no significant increase in warmth noted to digits. Mild nonpitting edema noted to 5th digit. NEURO: Light touch and protective sensation diminished. DERM: 1) Full thickness ulceration noted to distal tuft of 3rd digit with periwound erythema - ulcer is 100% fibrotic, no drainage, no purulence, no fluctuance, no malodor. 2) Full thickness ulcer noted to distal tuft of 5th dig it with periwound erythema and dusky changes - ulcer is 100% necrotic, no drainage, no purulence, no fluctuance, mild malodor. ORTHO: Pain on palpation noted to wounds. Assessment and Plan - Assessment and Plan (Free Text) Assessment: 63M PMHx NIDDM, HTN, HLD, gastritis with right 3rd and 5th digit ulcers, resolving erythema Plan: Patient seen and evaluated Discussed with attending, Dr. Bright Afebrile, WBC 6.7 ESR 18 Right foot XR reviewed: no significant cortical destruction Continue clindamycin and ceftriaxone ID on board; appreciate recs Vascular consult ordered; appreciate recs Right foot wound culture: no growth after 24 hours GIAN/PVR ordered; pending Podiatry will continue to follow while in house
--- NOTE | 2018-11-24 12:33 | CP.PCM.PN ---
Subjective - Date & Time of Evaluation Date of Evaluation: 11/24/18 Time of Evaluation: 12:33 - Subjective Subjective: MILD PAIN VS STABLE ULCERS ON 12/04 R. TOE CONT IV AB AND LOCAL WOUND CARE BONE SCAN IS NEG FOR OM Objective - Vital Signs/Intake and Output Vital Signs (last 24 hours): Temp Pulse Resp BP Pulse Ox 97.4 F L 76 20 132/73 96 11/24/18 08:46 11/24/18 08:46 11/24/18 08:46 11/24/18 08:46 11/24/18 08:46 Intake and Output: 11/24/18 11/24/18 11:59 23:59 Intake Total 340 Balance 340 - Medications Medications: Current Medications Enoxaparin Sodium (Lovenox) 40 mg SC DAILY [facility] Last Admin: 11/24/18 09:58 Dose: 40 mg Famotidine (Pepcid) 20 mg PO DAILY [facility] Last Admin: 11/24/18 09:57 Dose: 20 mg Clindamycin Phosphate 300 mg/ (Sodium Chloride) 52 mls @ 100 mls/hr IVPB Q8H [facility]; Protocol Last Admin: 11/24/18 09:57 Dose: 100 mls/hr Ceftriaxone Sodium (Rocephin Iv 1 Gm Duplex) 50 mls @ 50 mls/30 min IVPB DAILY [facility]; Protocol Last Admin: 11/24/18 10:00 Dose: 50 mls/30 min Insulin Human Regular (Novolin R) 0 unit SC ACHS [facility]; Protocol Last Admin: 11/24/18 08:35 Dose: 4 units Losartan Potassium (Cozaar) 50 mg PO DAILY [facility] Last Admin: 11/24/18 09:58 Dose: 50 mg Metformin HCl (Glucophage) 500 mg PO BIDCC [facility] Last Admin: 11/24/18 08:35 Dose: 500 mg Metoclopramide HCl (Reglan) 10 mg PO TID PRN PRN Reason: Nausea/Vomiting Mupirocin (Bactroban Ointment) 0 gm TOP DAILY [facility] Last Admin: 11/24/18 09:58 Dose: 1 applic Rosuvastatin Calcium (Crestor) 2.5 mg PO HS [facility] Last Admin: 11/23/18 21:20 Dose: 2.5 mg Saccharomyces Boulardii (Florastor) 250 mg PO HS [facility] Last Admin: 11/23/18 21:20 Dose: 250 mg Tamsulosin HCl (Flomax) 0.4 mg PO DAILY [facility] Last Admin: 11/24/18 09:57 Dose: 0.4 mg - Labs Labs: 11/24/18 06:47 11/24/18 06:47 Assessment and Plan (1) Diabetic ulcer of toe Status: Acute
--- NOTE | 2018-11-24 12:50 | CP.PCM.CON ---
History of Present Illness - History of Present Illness History of Present Illness: Vascular Surgery Dr. Child 63 y/o m w/ PMHx HTN, NIDDM, HLD, GERD was sent in by DPM on 11/22 for failed outpatient Tx of infected diabetic foot ulcers. Pt states he first developed the wounds on the dorsal aspect of R 3rd & 5th toes ~5 months ago w/ periods of improvement and worsening. Pt was recently seen in office w/ foul smelling, purulent drainage, thus promtping admission. Pt admits to occasion neuropathic pain in B/l hands and feet. Pt denies F/C, CP, SOB, N/V, D/C, claudication. Surgery was consulted this AM for concern of limb ischemia. PMHx: see above Meds: reviewed in chart ALL: IV PCN PSHx: denies SHx: quit smoking 1983; denies EtOH, drug use FHx: noncontributory Review of Systems - Review of Systems All systems: reviewed and no additional remarkable complaints except (see HPI) Past Patient History - Infectious Disease Hx of Infectious Diseases: None - Past Social History Smoking Status: Never Smoked - CARDIAC Hx Hypertension: Yes - ENDOCRINE/METABOLIC Hx Endocrine Disorders: Yes Hx Diabetes Mellitus Type 2: Yes - MUSCULOSKELETAL/RHEUMATOLOGICAL Hx Falls: No - GASTROINTESTINAL Hx Gastritis: Yes - GENITOURINARY/GYNECOLOGICAL Hx Prostate Problems: Yes - PSYCHIATRIC Hx Substance Use: No - SURGICAL HISTORY Hx Surgeries: No - ANESTHESIA Hx Anesthesia: No Hx Anesthesia Reactions: No Hx Malignant Hyperthermia: No Meds Allergies/Adverse Reactions: Allergies Allergy/AdvReac Type Severity Reaction Status Date / Time Penicillins Allergy Verified 11/22/18 16:37 - Medications Medications: Current Medications Enoxaparin Sodium (Lovenox) 40 mg SC DAILY [facility] Last Admin: 11/24/18 09:58 Dose: 40 mg Famotidine (Pepcid) 20 mg PO DAILY [facility] Last Admin: 11/24/18 09:57 Dose: 20 mg Clindamycin Phosphate 300 mg/ (Sodium Chloride) 52 mls @ 100 mls/hr IVPB Q8H [facility]; Protocol Last Admin: 11/24/18 09:57 Dose: 100 mls/hr Ceftriaxone Sodium (Rocephin Iv 1 Gm Duplex) 50 mls @ 50 mls/30 min IVPB DAILY [facility]; Protocol Last Admin: 11/24/18 10:00 Dose: 50 mls/30 min Insulin Human Regular (Novolin R) 0 unit SC ACHS [facility]; Protocol Last Admin: 11/24/18 08:35 Dose: 4 units Losartan Potassium (Cozaar) 50 mg PO DAILY [facility] Last Admin: 11/24/18 09:58 Dose: 50 mg Metformin HCl (Glucophage) 500 mg PO BIDCC [facility] Last Admin: 11/24/18 08:35 Dose: 500 mg Metoclopramide HCl (Reglan) 10 mg PO TID PRN PRN Reason: Nausea/Vomiting Mupirocin (Bactroban Ointment) 0 gm TOP DAILY [facility] Last Admin: 11/24/18 09:58 Dose: 1 applic Rosuvastatin Calcium (Crestor) 2.5 mg PO [facility] Last Admin: 11/23/18 21:20 Dose: 2.5 mg Saccharomyces Boulardii (Florastor) 250 mg PO [facility] Last Admin: 11/23/18 21:20 Dose: 250 mg Tamsulosin HCl (Flomax) 0.4 mg PO DAILY [facility] Last Admin: 11/24/18 09:57 Dose: 0.4 mg Physical Exam - Constitutional Appears: Non-toxic, No Acute Distress - Head Exam Head Exam: NORMAL INSPECTION - Eye Exam Eye Exam: Normal appearance - ENT Exam ENT Exam: Mucous Membranes Moist - Respiratory Exam Respiratory Exam: NORMAL BREATHING PATTERN. absent: Accessory Muscle Use, Respiratory Distress - Cardiovascular Exam Cardiovascular Exam: REGULAR RHYTHM. absent: Bradycardia, Tachycardia - GI/Abdominal Exam GI & Abdominal Exam: Soft. absent: Distended, Firm, Guarding, Tenderness - Extremities Exam Additional comments: B/L LE equally warm B/L strong femoral pulses B/L palpable PT; strong L DP, faint R DP R foot w/ krylex dressing in place - Neurological Exam Neurological exam: Alert, Oriented x3 - Psychiatric Exam Psychiatric exam: Normal Affect, Normal Mood - Skin Skin Exam: Dry, Intact, Normal Color, Warm Results - Vital Signs Recent Vital Signs: Last Vital Signs Temp 97.4 F L 11/24/18 08:46 Pulse 76 11/24/18 08:46 Resp 20 11/24/18 08:46 BP 132/73 11/24/18 08:46 Pulse Ox 96 11/24/18 08:46 - Labs Result Diagrams: 11/24/18 06:47 11/24/18 06:47 Labs: Laboratory Results - last 24 hr 11/23/18 11/23/18 11/24/18 16:31 20:55 02:17 WBC RBC Hgb Hct MCV MCH MCHC RDW Plt Count MPV Neut % (Auto) Lymph % (Auto) [place] % (Auto) Eos % (Auto) Baso % (Auto) Neut # (Auto) Lymph # (Auto) [place] # (Auto) Eos # (Auto) Baso # (Auto) Sodium Potassium Chloride Carbon Dioxide Anion Gap BUN Creatinine Est GFR ( Amer) Est GFR (Non-Af Amer) POC Glucose (mg/dL) 253 H 332 H 227 H Random Glucose Calcium Total Bilirubin AST ALT Alkaline Phosphatase Total Protein Albumin Globulin Albumin/Globulin Ratio 11/24/18 11/24/18 11/24/18 06:47 06:47 07:08 WBC 6.7 RBC 3.94 L Hgb 13.0 Hct 38.3 MCV 97.2 H MCH 33.1 H MCHC 34.1 RDW 13.3 Plt Count 285 MPV 8.3 Neut % (Auto) 56.0 Lymph % (Auto) 35.4 [place] % (Auto) 5.6 Eos % (Auto) 2.4 Baso % (Auto) 0.6 Neut # (Auto) 3.7 Lymph # (Auto) 2.4 [place] # (Auto) 0.4 Eos # (Auto) 0.2 Baso # (Auto) 0.0 Sodium 132 Potassium 4.5 Chloride 100 Carbon Dioxide 26 Anion Gap 11 BUN 25 H Creatinine 0.9 Est GFR ( Amer) > 60 Est GFR (Non-Af Amer) > 60 POC Glucose (mg/dL) 268 H Random Glucose 242 H Calcium 8.9 Total Bilirubin 0.4 AST 15 L ALT 13 L Alkaline Phosphatase 78 Total Protein 6.7 Albumin 3.8 Globulin 2.8 Albumin/Globulin Ratio 1.4 11/24/18 11:30 WBC RBC Hgb Hct MCV MCH MCHC RDW Plt Count MPV Neut % (Auto) Lymph % (Auto) [place] % (Auto) Eos % (Auto) Baso % (Auto) Neut # (Auto) Lymph # (Auto) [place] # (Auto) Eos # (Auto) Baso # (Auto) Sodium Potassium Chloride Carbon Dioxide Anion Gap BUN Creatinine Est GFR ( Amer) Est GFR (Non-Af Amer) POC Glucose (mg/dL) 338 H Random Glucose Calcium Total Bilirubin AST ALT Alkaline Phosphatase Total Protein Albumin Globulin Albumin/Globulin Ratio - Imaging and Cardiology GIAN/PVR Status: Image reviewed by me, Report reviewed by me Assessment & Plan - Assessment and Plan (Free Text) Assessment: 63 y/o M w/ 3rd & 5th toe diabetic ulcers w/ concerns for PVD Plan: - GIAN/PVR w/ dampened wave in R metatarsal - f/u Abd CTA - cont wound care per Podiatry - cont IV Abx per ID - encourage OOb to chair/Amb Further recs per Dr. Danyell Palma DO PGY3
[2018-11-24] MEDS: Rosuvastatin Calcium 2.5 mg Tab PO SCH (21:29)
[2018-11-24] MEDS: Saccharomyces Boulardi 250 mg Cap PO SCH (21:30)
--- NOTE | 2018-11-24 22:14 | CP.PCM.PN ---
Subjective - Date & Time of Evaluation Date of Evaluation: 11/24/18 Time of Evaluation: 22:14 - Subjective Subjective: CHIEF COMPLAINTS TODAY : afebrile, c/o pain right foot distal toes. SEEN BY VASCULAR SURGERY ?PVD ( 3rd & 5th toe diabetic ulcers.) ROS. HEENT : N. Resp : No cough, wheezing ,pleuritic CP ,or hemoptysis Cardio : No anginal CP, PND, orthopnea, palpitation GI : No abd.pain, n/v ,diarrhea or GI bleeding . 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 Musculoskel : No joint swelling , Derm : No rash Psych : Normal affect. Ext : No swelling ,calf pain . RT. FOOT ULCERS THIRD AND FIFTH TOES WITH MINIMAL DRAINAGE. PE. Pt. is alert awake in no distress. V.S As noted in the chart Head ,ear nose,throat and eyes : Normal. Neck : Supple with normal carotids. Lungs: Clear air entry. Heart : S1 & S2 normal with S4. No murmur. Abd : Soft non tender with normal bowel sounds. Neuro : Moves all ext. with no localized deficit. Ext : No edema with intact pulses.Non tender calves .RT. FOOT ULCERS THIRD AND FIFTH TOES WITH MINIMAL DRAINAGE.+ve erythema and tenderness on pressure. Derm : No rashes or decubitus ulcer. LABS/RADIOLOGY: WBC 6.7 RENAL FUNCTION GOOD Sedimentation rate 18 Creatinine 1.0 better. WOUND CULTURES +VE BETA HEMOLYTIC STREP GRP B/ SCN 3-phase bone scan negative for osseous process. Arterial peripheral vascular studies LE, RT,LEFT -ve for arterial insufficiency. ASSESSMENT DIABETIC FOOT ULCERS R/O PVD CELLULITIS RIGHT FOOT RENAL INSUFFICIENCY. DIABETES MELLITUS-2. /PLAN : CONTINUE iv ROCEPHIN 1 G ONCE A DAY DAILY 11/22/18 CONTINUE iv CLEOCIN 300 MG iv PIGGYBACK EVERY 8 HOURLY 11/22/18. VASCULAR W/U IN PROGRESS. LOCAL WOUND CARE AND DEBRIDEMENT PER PODIATRY. Objective - Vital Signs/Intake and Output Vital Signs (last 24 hours): Temp Pulse Resp BP Pulse Ox 97.9 F 76 20 132/80 95 11/24/18 16:00 11/24/18 16:00 11/24/18 16:00 11/24/18 16:00 11/24/18 16:00 Intake and Output: 11/24/18 11/25/18 18:59 06:59 Intake Total 600 Balance 600 - Medications Medications: Current Medications Enoxaparin Sodium (Lovenox) 40 mg SC DAILY [facility] Last Admin: 11/24/18 09:58 Dose: 40 mg Famotidine (Pepcid) 20 mg PO DAILY [facility] Last Admin: 11/24/18 09:57 Dose: 20 mg Clindamycin Phosphate 300 mg/ (Sodium Chloride) 52 mls @ 100 mls/hr IVPB Q8H [facility]; Protocol Last Admin: 11/24/18 17:13 Dose: 100 mls/hr Ceftriaxone Sodium (Rocephin Iv 1 Gm Duplex) 50 mls @ 50 mls/30 min IVPB DAILY [facility]; Protocol Last Admin: 11/24/18 10:00 Dose: 50 mls/30 min Insulin Human Regular (Novolin R) 0 unit SC ACHS [facility]; Protocol Last Admin: 11/24/18 21:30 Dose: 2 units Losartan Potassium (Cozaar) 50 mg PO DAILY [facility] Last Admin: 11/24/18 09:58 Dose: 50 mg Metformin HCl (Glucophage) 500 mg PO BIDCC [facility] Last Admin: 11/24/18 17:13 Dose: 500 mg Metoclopramide HCl (Reglan) 10 mg PO TID PRN PRN Reason: Nausea/Vomiting Mupirocin (Bactroban Ointment) 0 gm TOP DAILY [facility] Last Admin: 11/24/18 09:58 Dose: 1 applic Rosuvastatin Calcium (Crestor) 2.5 mg PO HS [facility] Last Admin: 11/24/18 21:29 Dose: 2.5 mg Saccharomyces Boulardii (Florastor) 250 mg PO HS [facility] Last Admin: 11/24/18 21:30 Dose: 250 mg Tamsulosin HCl (Flomax) 0.4 mg PO DAILY [facility] Last Admin: 11/24/18 09:57 Dose: 0.4 mg - Labs Labs: 11/24/18 06:47 11/24/18 06:47 Assessment and Plan (1) Diabetic ulcer of toe Status: Acute (2) Renal insufficiency Status: Acute (3) Diabetes Status: Acute
[2018-11-25] MEDS: Clindamycin 300 MG in Sodium Chloride 0.9% 50 ML IVPB SCH ×3 (00:04→17:35)
--- NOTE | 2018-11-25 07:58 | CP.PCM.PN ---
Subjective - Date & Time of Evaluation Date of Evaluation: 11/25/18 Time of Evaluation: 07:56 - Subjective Subjective: Vascular Surgery Dr. Child Pt S&E @bedside. no acute events overnight. pt has no complaints this AM. pt reports improved pain in R foot. denies F/C, N/V. has been OOB to restroom. tolerating diet. Objective - Vital Signs/Intake and Output Vital Signs (last 24 hours): Temp Pulse Resp BP Pulse Ox 98.3 F 88 20 156/85 H 95 11/25/18 00:00 11/25/18 00:00 11/25/18 00:00 11/25/18 00:00 11/25/18 00:00 Intake and Output: 11/25/18 11/25/18 06:59 18:59 Intake Total 180 Balance 180 - Medications Medications: Current Medications Enoxaparin Sodium (Lovenox) 40 mg SC DAILY [facility] Last Admin: 11/24/18 09:58 Dose: 40 mg Famotidine (Pepcid) 20 mg PO DAILY [facility] Last Admin: 11/24/18 09:57 Dose: 20 mg Clindamycin Phosphate 300 mg/ (Sodium Chloride) 52 mls @ 100 mls/hr IVPB Q8H [facility]; Protocol Last Admin: 11/25/18 00:04 Dose: 100 mls/hr Ceftriaxone Sodium (Rocephin Iv 1 Gm Duplex) 50 mls @ 50 mls/30 min IVPB DAILY [facility]; Protocol Last Admin: 11/24/18 10:00 Dose: 50 mls/30 min Insulin Human Regular (Novolin R) 0 unit SC ACHS [facility]; Protocol Last Admin: 11/24/18 21:30 Dose: 2 units Losartan Potassium (Cozaar) 50 mg PO DAILY [facility] Last Admin: 11/24/18 09:58 Dose: 50 mg Metformin HCl (Glucophage) 500 mg PO BIDCC [facility] Last Admin: 11/24/18 17:13 Dose: 500 mg Metoclopramide HCl (Reglan) 10 mg PO TID PRN PRN Reason: Nausea/Vomiting Mupirocin (Bactroban Ointment) 0 gm TOP DAILY [facility] Last Admin: 11/24/18 09:58 Dose: 1 applic Rosuvastatin Calcium (Crestor) 2.5 mg PO HS [facility] Last Admin: 11/24/18 21:29 Dose: 2.5 mg Saccharomyces Boulardii (Florastor) 250 mg PO HS [facility] Last Admin: 11/24/18 21:30 Dose: 250 mg Tamsulosin HCl (Flomax) 0.4 mg PO DAILY [facility] Last Admin: 11/24/18 09:57 Dose: 0.4 mg - Labs Labs: 11/24/18 06:47 11/24/18 06:47 - Constitutional Appears: Non-toxic, No Acute Distress - Head Exam Head Exam: NORMAL INSPECTION - Eye Exam Eye Exam: Normal appearance - ENT Exam ENT Exam: Mucous Membranes Moist - Respiratory Exam Respiratory Exam: NORMAL BREATHING PATTERN. absent: Accessory Muscle Use, Respiratory Distress - Cardiovascular Exam Cardiovascular Exam: REGULAR RHYTHM. absent: Bradycardia, Tachycardia - GI/Abdominal Exam GI & Abdominal Exam: Soft. absent: Distended, Tenderness - Extremities Exam Additional comments: B/L LE warm to touch L palpable DP/PT faint R PT - Neurological Exam Neurological Exam: Alert, Awake - Psychiatric Exam Psychiatric exam: Normal Affect, Normal Mood - Skin Skin Exam: Dry, Warm Assessment and Plan - Assessment and Plan (Free Text) Assessment: 63 y/o M w/ 3rd & 5th toe diabetic ulcers w/ concerns for PVD Plan: - f/u Abd CTA - cont wound care per Podiatry - cont IV Abx per ID - QShift vascular checks w/ doppler if needed - encourage OOb to chair/Amb Further recs per Dr. Danyell Palma DO PGY3
[2018-11-25] MEDS: (Novolin R) Insulin Human Regular 100 units/ml vial SC SCH ×4 (08:23→21:28)
[2018-11-25] MEDS: Enoxaparin 40 mg Syringe SC SCH (10:51)
[2018-11-25] MEDS: cefTRIAXone IV 1 gm in Dextros 50 ML IVPB SCH (10:52)
--- NOTE | 2018-11-25 12:24 | CP.PCM.PN ---
Subjective - Date & Time of Evaluation Date of Evaluation: 11/25/18 Time of Evaluation: 12:23 - Subjective Subjective: BONE SCAN NEG WOUND CULTURE STRET GRP B CONT IV AB Objective - Vital Signs/Intake and Output Vital Signs (last 24 hours): Temp Pulse Resp BP Pulse Ox 98.1 F 78 20 131/70 96 11/25/18 08:26 11/25/18 08:26 11/25/18 08:26 11/25/18 08:26 11/25/18 08:26 Intake and Output: 11/25/18 11/25/18 11:59 23:59 Intake Total 180 Balance 180 - Medications Medications: Current Medications Enoxaparin Sodium (Lovenox) 40 mg SC DAILY [facility] Last Admin: 11/25/18 10:51 Dose: 40 mg Famotidine (Pepcid) 20 mg PO DAILY [facility] Last Admin: 11/25/18 10:51 Dose: 20 mg Clindamycin Phosphate 300 mg/ (Sodium Chloride) 52 mls @ 100 mls/hr IVPB Q8H [facility]; Protocol Last Admin: 11/25/18 09:51 Dose: 100 mls/hr Ceftriaxone Sodium (Rocephin Iv 1 Gm Duplex) 50 mls @ 50 mls/30 min IVPB DAILY [facility]; Protocol Last Admin: 11/25/18 10:52 Dose: 50 mls/30 min Insulin Human Regular (Novolin R) 0 unit SC ACHS [facility]; Protocol Last Admin: 11/25/18 12:10 Dose: 8 units Losartan Potassium (Cozaar) 50 mg PO DAILY [facility] Last Admin: 11/25/18 10:51 Dose: 50 mg Metformin HCl (Glucophage) 500 mg PO BIDCC [facility] Last Admin: 11/25/18 08:23 Dose: 500 mg Metoclopramide HCl (Reglan) 10 mg PO TID PRN PRN Reason: Nausea/Vomiting Mupirocin (Bactroban Ointment) 0 gm TOP DAILY [facility] Last Admin: 11/25/18 10:54 Dose: 1 applic Rosuvastatin Calcium (Crestor) 2.5 mg PO HS [facility] Last Admin: 11/24/18 21:29 Dose: 2.5 mg Saccharomyces Boulardii (Florastor) 250 mg PO HS [facility] Last Admin: 11/24/18 21:30 Dose: 250 mg Tamsulosin HCl (Flomax) 0.4 mg PO DAILY [facility] Last Admin: 11/25/18 10:51 Dose: 0.4 mg - Labs Labs: 11/24/18 06:47 11/24/18 06:47 Assessment and Plan (1) Diabetic ulcer of toe Status: Acute
[2018-11-25] MEDS ORDERED: Iodixanol 320 mg/ml 150 ml Bottle IV ONE (14:52)
[2018-11-25] MEDS: Saccharomyces Boulardi 250 mg Cap PO SCH (21:50)
[2018-11-25] MEDS: Rosuvastatin Calcium 2.5 mg Tab PO SCH (21:50)
[2018-11-26] MEDS: Clindamycin 300 MG in Sodium Chloride 0.9% 50 ML IVPB SCH ×3 (01:08→17:03)
[2018-11-26 07:20] LABS: HEMOGLOBIN 13.8 g/dL (12.0-18.0); MEAN CELL VOLUME 96.8 fL (80.0-94.0); MEAN CORPUSCULAR HEMOGLOBIN 32.8 pg (27.0-31.0); MEAN CORPUSCULAR HGB CONC 33.9 g/dL (33.0-37.0); MEAN PLATELET VOLUME 8.4 fL (7.2-11.7); RBC 4.21 Mil/uL (4.40-5.90); RED CELL DISTRIBUTION WIDTH 13.4 % (11.5-14.5)
--- NOTE | 2018-11-26 07:39 | CP.PCM.PN ---
Subjective - Date & Time of Evaluation Date of Evaluation: 11/26/18 Time of Evaluation: 07:37 - Subjective Subjective: Vascular Surgery Dr. Child Pt S&E @bedside. No acute events overnight. no complaints. reports improved RLE pain. Objective - Vital Signs/Intake and Output Vital Signs (last 24 hours): Temp Pulse Resp BP Pulse Ox 98.7 F 79 20 136/78 95 11/26/18 00:00 11/26/18 00:00 11/26/18 00:00 11/26/18 00:00 11/26/18 00:00 Intake and Output: 11/26/18 11/26/18 06:59 18:59 Intake Total 400 Balance 400 - Medications Medications: Current Medications Enoxaparin Sodium (Lovenox) 40 mg SC DAILY [facility] Last Admin: 11/25/18 10:51 Dose: 40 mg Famotidine (Pepcid) 20 mg PO DAILY [facility] Last Admin: 11/25/18 10:51 Dose: 20 mg Clindamycin Phosphate 300 mg/ (Sodium Chloride) 52 mls @ 100 mls/hr IVPB Q8H [facility]; Protocol Last Admin: 11/26/18 01:08 Dose: 100 mls/hr Ceftriaxone Sodium (Rocephin Iv 1 Gm Duplex) 50 mls @ 50 mls/30 min IVPB DAILY [facility]; Protocol Last Admin: 11/25/18 10:52 Dose: 50 mls/30 min Insulin Human Regular (Novolin R) 0 unit SC ACHS [facility]; Protocol Last Admin: 11/25/18 21:28 Dose: Not Given Losartan Potassium (Cozaar) 50 mg PO DAILY [facility] Last Admin: 11/25/18 10:51 Dose: 50 mg Metformin HCl (Glucophage) 500 mg PO BIDCC [facility] Last Admin: 11/25/18 08:23 Dose: 500 mg Metoclopramide HCl (Reglan) 10 mg PO TID PRN PRN Reason: Nausea/Vomiting Mupirocin (Bactroban Ointment) 0 gm TOP DAILY [facility] Last Admin: 11/25/18 10:54 Dose: 1 applic Rosuvastatin Calcium (Crestor) 2.5 mg PO HS [facility] Last Admin: 11/25/18 21:50 Dose: 2.5 mg Saccharomyces Boulardii (Florastor) 250 mg PO HS [facility] Last Admin: 11/25/18 21:50 Dose: 250 mg Tamsulosin HCl (Flomax) 0.4 mg PO DAILY [facility] Last Admin: 11/25/18 10:51 Dose: 0.4 mg - Labs Labs: 11/26/18 07:10 11/24/18 06:47 - Constitutional Appears: Non-toxic, No Acute Distress - Head Exam Head Exam: NORMAL INSPECTION - Eye Exam Eye Exam: Normal appearance - ENT Exam ENT Exam: Mucous Membranes Moist - Respiratory Exam Respiratory Exam: NORMAL BREATHING PATTERN. absent: Accessory Muscle Use, Respiratory Distress - Cardiovascular Exam Cardiovascular Exam: REGULAR RHYTHM. absent: Bradycardia, Tachycardia - GI/Abdominal Exam GI & Abdominal Exam: Soft. absent: Distended, Tenderness - Extremities Exam Additional comments: palpable DP/PT BL though faint in RLE equal warmth to palpation - Neurological Exam Neurological Exam: Alert, Awake, Oriented x3 - Psychiatric Exam Psychiatric exam: Normal Affect, Normal Mood - Skin Skin Exam: Dry, Intact, Normal Color, Warm Assessment and Plan - Assessment and Plan (Free Text) Assessment: 63 y/o M w/ R 3rd & 5th toe diabetic ulcer, w/ concern for PVD Plan: - f/u official CTA report - cont IV Abx per ID - wound care per podiatry - Angio planned for tomorrow 11/27 Further recs per / Danyell Palma DO PGY3
[2018-11-26 07:43] LABS: BLOOD UREA NITROGEN 28 mg/dL (9-20); CALCIUM 9.2 mg/dl (8.6-10.4); GFR NON-AFRICAN AMERICAN > 60
[2018-11-26] MEDS: (Novolin R) Insulin Human Regular 100 units/ml vial SC SCH ×4 (08:28→21:33)
[2018-11-26] MEDS: Enoxaparin 40 mg Syringe SC SCH (10:13)
[2018-11-26] MEDS: cefTRIAXone IV 1 gm in Dextros 50 ML IVPB SCH (10:14)
--- NOTE | 2018-11-26 11:18 | CP.PCM.PN ---
Subjective - Date & Time of Evaluation Date of Evaluation: 11/26/18 Time of Evaluation: 11:18 - Subjective Subjective: BONE SCAN NEG WOUND CULTURE STRET GRP B CONT IV AB LOWER EXT ANGIO Objective - Vital Signs/Intake and Output Vital Signs (last 24 hours): Temp Pulse Resp BP Pulse Ox 97.8 F 73 20 145/75 96 11/26/18 08:01 11/26/18 08:01 11/26/18 08:01 11/26/18 08:01 11/26/18 08:01 Intake and Output: 11/25/18 11/26/18 23:59 11:59 Intake Total 600 400 Balance 600 400 - Medications Medications: Current Medications Enoxaparin Sodium (Lovenox) 40 mg SC DAILY [facility] Last Admin: 11/26/18 10:13 Dose: 40 mg Famotidine (Pepcid) 20 mg PO DAILY [facility] Last Admin: 11/26/18 10:13 Dose: 20 mg Clindamycin Phosphate 300 mg/ (Sodium Chloride) 52 mls @ 100 mls/hr IVPB Q8H [facility]; Protocol Last Admin: 11/26/18 08:29 Dose: 100 mls/hr Ceftriaxone Sodium (Rocephin Iv 1 Gm Duplex) 50 mls @ 50 mls/30 min IVPB DAILY [facility]; Protocol Last Admin: 11/26/18 10:14 Dose: 50 mls/30 min Insulin Human Regular (Novolin R) 0 unit SC ACHS [facility]; Protocol Last Admin: 11/26/18 08:28 Dose: 4 units Losartan Potassium (Cozaar) 50 mg PO DAILY [facility] Last Admin: 11/26/18 10:13 Dose: 50 mg Metformin HCl (Glucophage) 500 mg PO BIDCC [facility] Last Admin: 11/25/18 08:23 Dose: 500 mg Metoclopramide HCl (Reglan) 10 mg PO TID PRN PRN Reason: Nausea/Vomiting Mupirocin (Bactroban Ointment) 0 gm TOP DAILY [facility] Last Admin: 11/26/18 10:37 Dose: 1 applic Rosuvastatin Calcium (Crestor) 2.5 mg PO HS [facility] Last Admin: 11/25/18 21:50 Dose: 2.5 mg Saccharomyces Boulardii (Florastor) 250 mg PO HS [facility] Last Admin: 11/25/18 21:50 Dose: 250 mg Tamsulosin HCl (Flomax) 0.4 mg PO DAILY [facility] Last Admin: 11/26/18 10:13 Dose: 0.4 mg - Labs Labs: 11/26/18 07:10 11/26/18 07:10 PT 11.0 SECONDS (9.7-12.2) 11/26/18 07:10 INR 1.0 11/26/18 07:10 APTT 28 SECONDS (21-34) 11/26/18 07:10 Assessment and Plan (1) Diabetic ulcer of toe Status: Acute
--- NOTE | 2018-11-26 11:48 | CP.PCM.PN ---
Subjective - Date & Time of Evaluation Date of Evaluation: 11/26/18 Time of Evaluation: 11:48 - Subjective Subjective: Podiatry Progress Note - Dr. Bright 63 year old male patient PMHx NIDDM, HTN, HLD seen for infected 3rd and 5th digits, right foot. Patient AAOx3 and in NAD. No new right lower extremity complaints. Denies n/f/d/c/sob/[place] tor[place]/cp. For angio with vascular tomorrow. Objective - Vital Signs/Intake and Output Vital Signs (last 24 hours): Temp Pulse Resp BP Pulse Ox 97.8 F 73 20 145/75 96 11/26/18 08:01 11/26/18 08:01 11/26/18 08:01 11/26/18 08:01 11/26/18 08:01 Intake and Output: 11/26/18 11/26/18 06:59 18:59 Intake Total 400 Balance 400 - Medications Medications: Current Medications Enoxaparin Sodium (Lovenox) 40 mg SC DAILY [facility] Last Admin: 11/26/18 10:13 Dose: 40 mg Famotidine (Pepcid) 20 mg PO DAILY [facility] Last Admin: 11/26/18 10:13 Dose: 20 mg Clindamycin Phosphate 300 mg/ (Sodium Chloride) 52 mls @ 100 mls/hr IVPB Q8H [facility]; Protocol Last Admin: 11/26/18 08:29 Dose: 100 mls/hr Ceftriaxone Sodium (Rocephin Iv 1 Gm Duplex) 50 mls @ 50 mls/30 min IVPB DAILY [facility]; Protocol Last Admin: 11/26/18 10:14 Dose: 50 mls/30 min Insulin Human Regular (Novolin R) 0 unit SC ACHS [facility]; Protocol Last Admin: 11/26/18 08:28 Dose: 4 units Losartan Potassium (Cozaar) 50 mg PO DAILY [facility] Last Admin: 11/26/18 10:13 Dose: 50 mg Metformin HCl (Glucophage) 500 mg PO BIDCC [facility] Last Admin: 11/25/18 08:23 Dose: 500 mg Metoclopramide HCl (Reglan) 10 mg PO TID PRN PRN Reason: Nausea/Vomiting Mupirocin (Bactroban Ointment) 0 gm TOP DAILY [facility] Last Admin: 11/26/18 10:37 Dose: 1 applic Rosuvastatin Calcium (Crestor) 2.5 mg PO [facility] Last Admin: 11/25/18 21:50 Dose: 2.5 mg Saccharomyces Boulardii (Florastor) 250 mg PO [facility] Last Admin: 11/25/18 21:50 Dose: 250 mg Tamsulosin HCl (Flomax) 0.4 mg PO DAILY [facility] Last Admin: 11/26/18 10:13 Dose: 0.4 mg - Labs Labs: 11/26/18 07:10 11/26/18 07:10 PT 11.0 SECONDS (9.7-12.2) 11/26/18 07:10 INR 1.0 11/26/18 07:10 APTT 28 SECONDS (21-34) 11/26/18 07:10 - Constitutional Appears: Non-toxic, No Acute Distress - Extremities Exam Additional comments: RLE focused physical exam: VASC: DP and PT pulses palpable 1/4. CFT <3 seconds to digits, unable to asses 3rd and 5th digits. Temperature gradient warm to warm, no significant increase in warmth noted to digits. Mild nonpitting edema noted to 5th digit. NEURO: Light touch and protective sensation diminished. DERM: 1) Full thickness ulceration noted to distal tuft of 3rd digit with periwound erythema - ulcer is 100% fibrotic, no drainage, no purulence, no fluctuance, no malodor. 2) Full thickness ulcer noted to distal tuft of 5th digit with periwound erythema and dusky changes - ulcer is 100% necrotic, no drainage, no purulence, no fluctuance, mild malodor. ORTHO: Pain on palpation noted to wounds. - Neurological Exam Neurological Exam: Alert, Awake, Oriented x3 - Psychiatric Exam Psychiatric exam: Normal Affect, Normal Mood Assessment and Plan - Assessment and Plan (Free Text) Assessment: 63M with right 3rd and 5th digit ulcers, resolving erythema Plan: Patient seen and evaluated Discussed with attending, Dr. Bright Afebrile, WBC 7.0, ESR 18 Right foot XR reviewed: no significant cortical destruction Bone scan negative for acute osseous process Right foot wound culture: beta hemolytic strep group B, coagulase negative staph ID on board; continue Clindamycin and Ceftriaxone Vascular recs appreciated; for angio tomorrow 11/27 Podiatry will continue to follow
--- NOTE | 2018-11-26 18:59 | CP.PCM.PN ---
Subjective - Date & Time of Evaluation Date of Evaluation: 11/26/18 Time of Evaluation: 18:59 - Subjective Subjective: CHIEF COMPLAINTS TODAY : afebrile, c/o pain right foot distal toes. SEEN BY VASCULAR SURGERY ?PVD ( 3rd & 5th toe diabetic ulcers.) ROS. HEENT : N. Resp : No cough, wheezing ,pleuritic CP ,or hemoptysis Cardio : No anginal CP, PND, orthopnea, palpitation GI : No abd.pain, n/v ,diarrhea or GI bleeding . 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 Musculoskel : No joint swelling , Derm : No rash Psych : Normal affect. Ext : No swelling ,calf pain . RT. FOOT ULCERS THIRD AND FIFTH TOES WITH MINIMAL DRAINAGE. PE. Pt. is alert awake in no distress. V.S As noted in the chart Head ,ear nose,throat and eyes : Normal. Neck : Supple with normal carotids. Lungs: Clear air entry. Heart : S1 & S2 normal with S4. No murmur. Abd : Soft non tender with normal bowel sounds. Neuro : Moves all ext. with no localized deficit. Ext : No edema with intact pulses.Non tender calves .RT. FOOT ULCERS THIRD AND FIFTH TOES WITH MINIMAL DRAINAGE.+ve erythema and tenderness on pressure/CYANOSIS NOTED DISTAL TOES 3,4,5TH TOES Derm : No rashes or decubitus ulcer. LABS/RADIOLOGY: WBC 7.0 / CREAT 1.0/BUN 28 Sedimentation rate 18 Creatinine 1.0 better. WOUND CULTURES +VE BETA HEMOLYTIC STREP GRP B/ SCN 3-phase bone scan negative for osseous process. Arterial peripheral vascular studies LE, RT,LEFT -ve for arterial insu fficiency. ASSESSMENT DIABETIC FOOT ULCERS R/O PVD CELLULITIS RIGHT FOOT RENAL INSUFFICIENCY. DIABETES MELLITUS-2. /PLAN : PT FOR CTA IN AM PER VASCULAR SURGERY CONTINUE iv ROCEPHIN 1 G ONCE A DAY DAILY 11/22/18 CONTINUE iv CLEOCIN 300 MG iv PIGGYBACK EVERY 8 HOURLY 11/22/18. VASCULAR W/U IN PROGRESS. LOCAL WOUND CARE AND DEBRIDEMENT PER PODIATRY. Objective - Vital Signs/Intake and Output Vital Signs (last 24 hours): Temp Pulse Resp BP Pulse Ox 98.1 F 78 20 132/80 97 11/26/18 16:00 11/26/18 16:00 11/26/18 16:00 11/26/18 16:00 11/26/18 16:00 Intake and Output: 11/26/18 11/26/18 06:59 18:59 Intake Total 400 500 Balance 400 500 - Medications Medications: Current Medications Enoxaparin Sodium (Lovenox) 40 mg SC DAILY [facility] Last Admin: 11/26/18 10:13 Dose: 40 mg Famotidine (Pepcid) 20 mg PO DAILY [facility] Last Admin: 11/26/18 10:13 Dose: 20 mg Clindamycin Phosphate 300 mg/ (Sodium Chloride) 52 mls @ 100 mls/hr IVPB Q8H [facility]; Protocol Last Admin: 11/26/18 17:03 Dose: 100 mls/hr Ceftriaxone Sodium (Rocephin Iv 1 Gm Duplex) 50 mls @ 50 mls/30 min IVPB DAILY [facility]; Protocol Last Admin: 11/26/18 10:14 Dose: 50 mls/30 min Insulin Human Regular (Novolin R) 0 unit SC ACHS [facility]; Protocol Last Admin: 11/26/18 16:30 Dose: 8 units Losartan Potassium (Cozaar) 50 mg PO DAILY [facility] Last Admin: 11/26/18 10:13 Dose: 50 mg Metformin HCl (Glucophage) 500 mg PO BIDCC [facility] Last Admin: 11/25/18 08:23 Dose: 500 mg Metoclopramide HCl (Reglan) 10 mg PO TID PRN PRN Reason: Nausea/Vomiting Mupirocin (Bactroban Ointment) 0 gm TOP DAILY [facility] Last Admin: 11/26/18 10:37 Dose: 1 applic Rosuvastatin Calcium (Crestor) 2.5 mg PO HS [facility] Last Admin: 11/25/18 21:50 Dose: 2.5 mg Saccharomyces Boulardii (Florastor) 250 mg PO HS [facility] Last Admin: 11/25/18 21:50 Dose: 250 mg Tamsulosin HCl (Flomax) 0.4 mg PO DAILY [facility] Last Admin: 11/26/18 10:13 Dose: 0.4 mg - Labs Labs: 11/26/18 07:10 11/26/18 07:10 PT 11.0 SECONDS (9.7-12.2) 11/26/18 07:10 INR 1.0 11/26/18 07:10 APTT 28 SECONDS (21-34) 11/26/18 07:10 Assessment and Plan (1) Diabetic ulcer of toe Status: Acute (2) Renal insufficiency Status: Acute (3) Diabetes Status: Acute
[2018-11-26] MEDS: Rosuvastatin Calcium 2.5 mg Tab PO SCH (21:20)
[2018-11-26] MEDS: Saccharomyces Boulardi 250 mg Cap PO SCH (21:20)
[2018-11-27] MEDS: Clindamycin 300 MG in Sodium Chloride 0.9% 50 ML IVPB SCH ×3 (00:04→17:00)
[2018-11-27] MEDS: (Novolin R) Insulin Human Regular 100 units/ml vial SC SCH ×4 (08:09→21:35)
--- NOTE | 2018-11-27 11:54 | CP.PCM.PN ---
Subjective - Date & Time of Evaluation Date of Evaluation: 11/27/18 Time of Evaluation: 11:53 - Subjective Subjective: AFEBRILE TOES HEALING SLOW CHECK ANGIO Objective - Vital Signs/Intake and Output Vital Signs (last 24 hours): Temp Pulse Resp BP Pulse Ox 98.2 F 70 20 153/78 H 96 11/27/18 08:00 11/27/18 08:00 11/27/18 08:00 11/27/18 08:00 11/27/18 08:00 Intake and Output: 11/26/18 11/27/18 23:59 11:59 Intake Total 850 60 Balance 850 60 - Medications Medications: Current Medications Enoxaparin Sodium (Lovenox) 40 mg SC DAILY [facility] Last Admin: 11/26/18 10:13 Dose: 40 mg Famotidine (Pepcid) 20 mg PO DAILY [facility] Last Admin: 11/27/18 09:32 Dose: Not Given Clindamycin Phosphate 300 mg/ (Sodium Chloride) 52 mls @ 100 mls/hr IVPB Q8H [facility]; Protocol Last Admin: 11/27/18 09:25 Dose: 100 mls/hr Insulin Human Regular (Novolin R) 0 unit SC ACHS [facility]; Protocol Last Admin: 11/27/18 08:09 Dose: Not Given Losartan Potassium (Cozaar) 50 mg PO DAILY [facility] Last Admin: 11/27/18 09:27 Dose: 50 mg Metformin HCl (Glucophage) 500 mg PO BIDCC [facility] Last Admin: 11/25/18 08:23 Dose: 500 mg Metoclopramide HCl (Reglan) 10 mg PO TID PRN PRN Reason: Nausea/Vomiting Mupirocin (Bactroban Ointment) 0 gm TOP DAILY [facility] Last Admin: 11/27/18 09:31 Dose: 1 applic Rosuvastatin Calcium (Crestor) 2.5 mg PO HS [facility] Last Admin: 11/26/18 21:20 Dose: 2.5 mg Saccharomyces Boulardii (Florastor) 250 mg PO HS [facility] Last Admin: 11/26/18 21:20 Dose: 250 mg Tamsulosin HCl (Flomax) 0.4 mg PO DAILY [facility] Last Admin: 11/27/18 09:32 Dose: Not Given - Labs Labs: 11/26/18 07:10 11/26/18 07:10 PT 11.0 SECONDS (9.7-12.2) 11/26/18 07:10 INR 1.0 11/26/18 07:10 APTT 28 SECONDS (21-34) 11/26/18 07:10 Assessment and Plan (1) Diabetic ulcer of toe Status: Acute
[2018-11-27] MEDS ORDERED: Iodixanol 320 MG/ML 200 ML BOTTLE IV ONE (13:54)
[2018-11-27] MEDS ORDERED: Lidocaine Hydrochloride 10 ML INJ ONE (14:10)
[2018-11-27] MEDS ORDERED: Midazolam 2 MG/2 ML VIAL ONE ×2 (14:11)
--- NOTE | 2018-11-27 15:59 | PCM.SURG1 ---
Surgeon's Initial Post Op Note - Surgeon's Notes Surgeon: carlos manuel Unit Supervisor: 0 Type of Anesthesia: IV Sedation Anesthesia Administered By: pavel Pre-Operative Diagnosis: gangrene right foot Operative Findings: severe pedal and tibial disease. ballooned proximal posterior tibial. unable to cross AT. no named vessel in foot Post-Operative Diagnosis: same Operation Performed: aortofemoral angiogram via left groin. selective catherization of right femoral artery. balloon angioplasty of posterior tibial artery at origin and distal 3rd(3mm). perclose left Specimen/Specimens Removed: 0 Estimated Blood Loss: EBL {In ML}: 20 Blood Products Given: N/A Drains Used: No Drains Post-Op Condition: Good Date of Surgery/Procedure: 11/27/18 Time of Surgery/Procedure: 16:00
[2018-11-27] MEDS: Saccharomyces Boulardi 250 mg Cap PO SCH (21:34)
[2018-11-27] MEDS: Rosuvastatin Calcium 2.5 mg Tab PO SCH (21:34)
[2018-11-28] MEDS: Clindamycin 300 MG in Sodium Chloride 0.9% 50 ML IVPB SCH ×2 (00:37→09:57)
[2018-11-28 01:11] VITALS: O2SAT 97
--- NOTE | 2018-11-28 04:07 | OP ---
PROCEDURE DATE: 11/27/2018 PREOPERATIVE DIAGNOSIS: Gangrene of right foot great toe. POSTOPERATIVE DIAGNOSIS: Gangrene of right foot great toe. PROCEDURE CARRIED OUT: 1. Aortofemoral angiogram via left groin with selective catheterization of right femoral. 2. Balloon angioplasty using a 2 x 3 mm balloon of the posterior tibial artery. SURGEON: Felipe Child Jr., MD ELECTROCARDIOGRAPH OPERATOR: None. ANESTHESIOLOGIST: Celestine Hanson CRNA INDICATIONS: The patient is a 63-year-old male with gangrene in the fourth and fifth toe on the right foot. OPERATIVE FINDINGS: The aorta, renal arteries, iliac arteries, common femoral arteries, and superficial femoral arteries were widely patent without any evidence of any significant occlusive disease. On the right side, which is the affected, detailed pictures were not taken below the level of the knee because of the patient's body habitus and the difficulty in composing in both legs into the field. A stiff-angled guidewire was advanced over the aortic bifurcation, the catheter positioned in the distal portion of the superficial femoral artery. At this point, the proximal portion of the popliteal artery was widely patent. The origin of the trifurcation is widely patent except for the origin of the posterior tibial artery which is severely diseased with 80% stenosis in its proximal 3 cm. Distally, the peroneal artery occluded. Distally, the anterior tibial artery occluded just above and below the ankle but did not contribute to pedal arch. There was a gap of 2 to 3 cm and then a segment of the dorsalis pedis artery reappeared, but this do not connect to large pedal arch. Subsequent to the performance of diagnostic arteriogram, a stiff-angled guidewire was advanced over the aortic bifurcation, and a 6-Cambodian sheath was positioned in the distal portion of the superficial femoral artery. Using road mapping techniques, we were able to cross into the anterior tibial artery. We were unable to cross the lesion distally into the foot. We then abandoned this and approached the proximal portion of the posterior tibial artery which was dilated with 2 x 3 mm balloon and the entire length was dilated distally in its distal third, there was another critical stenosis, both of these were successfully dilated. Initially, 3 mm dilatation. After this have been done, we then applied a Perclose device in the left groin and terminated the procedure. Blood loss for the procedure was 25 mL. OPERATION CARRIED OUT: Aortofemoral angiogram via left groin with selective catheterization of right femoral artery, balloon angioplasty of the posterior tibial artery x2. Perclose device was then deployed on the left groin. The primary problem is that the patient has a pedal disease without a significant arch in the foot. Felipe Child Jr., MD
[2018-11-28 07:32] VITALS: BP 130/78; PULSE 68; TEMP 98.7
[2018-11-28] MEDS: (Novolin R) Insulin Human Regular 100 units/ml vial SC SCH ×2 (08:09→12:36)
--- NOTE | 2018-11-28 09:25 | CP.PCM.PN ---
Subjective - Date & Time of Evaluation Date of Evaluation: 11/27/18 Time of Evaluation: 17:00 - Subjective Subjective: Podiatry Progress Note - Dr. Bright 63 year old male patient PMHx NIDDM, HTN, HLD seen for infected 3rd and 5th digits, right foot. Patient s/p angioplasty, with pain in right foot improving. No new right lower extremity complaints. Denies n/f/d/c/sob/[place]/cp. Objective - Vital Signs/Intake and Output Vital Signs (last 24 hours): Temp Pulse Resp BP Pulse Ox 98.7 F 68 20 130/78 97 11/28/18 07:29 11/28/18 07:29 11/28/18 07:29 11/28/18 07:29 11/28/18 07:29 Intake and Output: 11/28/18 11/28/18 06:59 18:59 Intake Total 450 290 Balance 450 290 - Medications Medications: Current Medications Aspirin (Aspirin Chewable) [address] [facility] Clopidogrel Bisulfate (Plavix) [address] [facility] Enoxaparin Sodium (Lovenox) [address] [facility] Last Admin: 11/26/18 10:13 Dose: 40 mg Famotidine (Pepcid) [address] [facility] Last Admin: 11/27/18 09:32 Dose: Not Given Clindamycin Phosphate 300 mg/ (Sodium Chloride) 52 mls @ 100 mls/hr IVPB Q8H [facility]; Protocol Last Admin: 11/28/18 00:37 Dose: 100 mls/hr Insulin Human Regular (Novolin R) [address] [facility]; Protocol Last Admin: 11/28/18 08:09 Dose: 4 units Losartan Potassium (Cozaar) [address] [facility] Last Admin: 11/27/18 09:27 Dose: 50 mg Metformin HCl (Glucophage) [address] [facility] Last Admin: 11/25/18 08:23 Dose: 500 mg Metoclopramide HCl (Reglan) 10 mg PO TID PRN PRN Reason: Nausea/Vomiting Mupirocin (Bactroban Ointment) [address] [facility] Last Admin: 11/27/18 09:31 Dose: 1 applic Rosuvastatin Calcium (Crestor) 2.[address] [facility] Last Admin: 11/27/18 21:34 Dose: 2.5 mg Saccharomyces Boulardii (Florastor) [address] [facility] Last Admin: 11/27/18 21:34 Dose: 250 mg Tamsulosin HCl (Flomax) 0.[address] [facility] Last Admin: 11/27/18 09:32 Dose: Not Given - Labs Labs: 11/26/18 07:10 11/26/18 07:10 PT 11.0 SECONDS (9.7-12.2) 11/26/18 07:10 INR 1.0 11/26/18 07:10 APTT 28 SECONDS (21-34) 11/26/18 07:10 - Extremities Exam Additional comments: RLE focused physical exam: VASC: DP and PT pulses palpable 1/4. CFT <3 seconds to digits, unable to asses 3rd and 5th digits. Temperature gradient warm to warm, no significant increase in warmth noted to digits. Mild nonpitting edema noted to 5th digit. NEURO: Light touch and protective sensation diminished. DERM: 1) Full thickness ulceration noted to distal tuft of 3rd digit with periwound erythema - ulcer is 100% fibrotic, no drainage, no purulence, no fluctuance, no malodor. 2) Full thickness ulcer noted to distal tuft of 5th digit with periwound erythema and dusky changes - ulcer is 100% necrotic, no drainage, no purulence, no fluctuance, mild malodor. ORTHO: Pain on palpation noted to wounds. - Neurological Exam Neurological Exam: Alert, Awake, Oriented x3 - Psychiatric Exam Psychiatric exam: Normal Affect, Normal Mood Assessment and Plan - Assessment and Plan (Free Text) Assessment: 63M with right 3rd and 5th digit ulcers, resolving erythema Plan: Patient seen and evaluated Discussed with attending, Dr. Bright Afebrile Right foot XR reviewed: no significant cortical destruction Bone scan negative for acute osseous process Right foot wound culture: beta hemolytic strep group B, coagulase negative staph Continue abx per ID Patient s/p angioplasty Podiatry will continue to follow
--- NOTE | 2018-11-28 11:55 | CP.PCM.PN ---
Subjective - Date & Time of Evaluation Date of Evaluation: 11/28/18 Time of Evaluation: 11:53 - Subjective Subjective: S/P ANGIOPLASTY OF POST TIBIAL LEFT ULCERS 3/5 TOES CONT IV AB Objective - Vital Signs/Intake and Output Vital Signs (last 24 hours): Temp Pulse Resp BP Pulse Ox 98.7 F 68 20 130/78 97 11/28/18 07:29 11/28/18 07:29 11/28/18 07:29 11/28/18 07:29 11/28/18 07:29 Intake and Output: 11/27/18 11/28/18 23:59 11:59 Intake Total 500 290 Balance 500 290 - Medications Medications: Current Medications Aspirin (Aspirin Chewable) 81 mg PO DAILY [facility] Last Admin: 11/28/18 09:57 Dose: 81 mg Clopidogrel Bisulfate (Plavix) 75 mg PO DAILY [facility] Last Admin: 11/28/18 09:58 Dose: 75 mg Enoxaparin Sodium (Lovenox) 40 mg SC DAILY [facility] Last Admin: 11/26/18 10:13 Dose: 40 mg Famotidine (Pepcid) 20 mg PO DAILY [facility] Last Admin: 11/28/18 09:56 Dose: 20 mg Clindamycin Phosphate 300 mg/ (Sodium Chloride) 52 mls @ 100 mls/hr IVPB Q8H [facility]; Protocol Last Admin: 11/28/18 09:57 Dose: 100 mls/hr Insulin Human Regular (Novolin R) 0 unit SC ACHS [facility]; Protocol Last Admin: 11/28/18 08:09 Dose: 4 units Losartan Potassium (Cozaar) 50 mg PO DAILY [facility] Last Admin: 11/28/18 09:58 Dose: 50 mg Metformin HCl (Glucophage) 500 mg PO BIDCC [facility] Last Admin: 11/25/18 08:23 Dose: 500 mg Metoclopramide HCl (Reglan) 10 mg PO TID PRN PRN Reason: Nausea/Vomiting Mupirocin (Bactroban Ointment) 0 gm TOP DAILY [facility] Last Admin: 11/28/18 10:01 Dose: 1 applic Rosuvastatin Calcium (Crestor) 2.5 mg PO HS [facility] Last Admin: 11/27/18 21:34 Dose: 2.5 mg Saccharomyces Boulardii (Florastor) 250 mg PO HS [facility] Last Admin: 11/27/18 21:34 Dose: 250 mg Tamsulosin HCl (Flomax) 0.4 mg PO DAILY [facility] Last Admin: 11/28/18 09:58 Dose: 0.4 mg - Labs Labs: 11/26/18 07:10 11/26/18 07:10 PT 11.0 SECONDS (9.7-12.2) 11/26/18 07:10 INR 1.0 11/26/18 07:10 APTT 28 SECONDS (21-34) 11/26/18 07:10 Assessment and Plan (1) Diabetic ulcer of toe Status: Acute
--- NOTE | 2018-11-28 12:04 | CP.PCM.PN ---
Subjective - Date & Time of Evaluation Date of Evaluation: 11/28/18 Time of Evaluation: 12:04 Objective - Vital Signs/Intake and Output Vital Signs (last 24 hours): Temp Pulse Resp BP Pulse Ox 98.7 F 68 20 130/78 97 11/28/18 07:29 11/28/18 07:29 11/28/18 07:29 11/28/18 07:29 11/28/18 07:29 Intake and Output: 11/28/18 11/28/18 06:59 18:59 Intake Total 450 290 Balance 450 290 - Medications Medications: Current Medications Aspirin (Aspirin Chewable) 81 mg PO DAILY [facility] Last Admin: 11/28/18 09:57 Dose: 81 mg Clopidogrel Bisulfate (Plavix) 75 mg PO DAILY [facility] Last Admin: 11/28/18 09:58 Dose: 75 mg Enoxaparin Sodium (Lovenox) 40 mg SC DAILY [facility] Last Admin: 11/26/18 10:13 Dose: 40 mg Famotidine (Pepcid) 20 mg PO DAILY [facility] Last Admin: 11/28/18 09:56 Dose: 20 mg Clindamycin Phosphate 300 mg/ (Sodium Chloride) 52 mls @ 100 mls/hr IVPB Q8H [facility]; Protocol Last Admin: 11/28/18 09:57 Dose: 100 mls/hr Insulin Human Regular (Novolin R) 0 unit SC ACHS [facility]; Protocol Last Admin: 11/28/18 08:09 Dose: 4 units Losartan Potassium (Cozaar) 50 mg PO DAILY [facility] Last Admin: 11/28/18 09:58 Dose: 50 mg Metformin HCl (Glucophage) 500 mg PO BIDCC [facility] Last Admin: 11/25/18 08:23 Dose: 500 mg Metoclopramide HCl (Reglan) 10 mg PO TID PRN PRN Reason: Nausea/Vomiting Mupirocin (Bactroban Ointment) 0 gm TOP DAILY [facility] Last Admin: 11/28/18 10:01 Dose: 1 applic Rosuvastatin Calcium (Crestor) 2.5 mg PO [facility] Last Admin: 11/27/18 21:34 Dose: 2.5 mg Saccharomyces Boulardii (Florastor) 250 mg PO HS [facility] Last Admin: 11/27/18 21:34 Dose: 250 mg Tamsulosin HCl (Flomax) 0.4 mg PO DAILY [facility] Last Admin: 11/28/18 09:58 Dose: 0.4 mg - Labs Labs: 11/26/18 07:10 11/26/18 07:10 PT 11.0 SECONDS (9.7-12.2) 11/26/18 07:10 INR 1.0 11/26/18 07:10 APTT 28 SECONDS (21-34) 11/26/18 07:10 Assessment and Plan (1) Diabetic ulcer of toe Status: Acute (2) Renal insufficiency Status: Acute (3) Diabetes Status: Acute
[2018-11-28] MEDS ORDERED: cefTRIAXone IV 1 gm in Dextros 50 ML IVPB SCH (12:15)
--- NOTE | 2018-11-28 17:16 | CP.PCM.PN ---
Subjective - Date & Time of Evaluation Date of Evaluation: 11/28/18 Time of Evaluation: 10:05 - Subjective Subjective: Surgery progress note for Dr. Child Patient seenand examined at bedside. Mild right foot pain improved since yesterdya, no groin or abdominal pain, or any other symptoms Objective - Vital Signs/Intake and Output Vital Signs (last 24 hours): Temp Pulse Resp BP Pulse Ox 98.7 F 68 20 130/78 97 11/28/18 07:29 11/28/18 07:29 11/28/18 07:29 11/28/18 07:29 11/28/18 15:58 Intake and Output: 11/28/18 11/28/18 06:59 18:59 Intake Total 450 290 Balance 450 290 - Labs Labs: 11/26/18 07:10 11/26/18 07:10 PT 11.0 SECONDS (9.7-12.2) 11/26/18 07:10 INR 1.0 11/26/18 07:10 APTT 28 SECONDS (21-34) 11/26/18 07:10 - Constitutional Appears: Well, Non-toxic - Head Exam Head Exam: ATRAUMATIC, NORMOCEPHALIC - Eye Exam Eye Exam: Normal appearance. absent: Conjunctival injection, Scleral icterus - ENT Exam ENT Exam: Mucous Membranes Moist, Normal Oropharynx - Respiratory Exam Respiratory Exam: NORMAL BREATHING PATTERN. absent: Accessory Muscle Use, Respiratory Distress - Cardiovascular Exam Cardiovascular Exam: RRR - GI/Abdominal Exam GI & Abdominal Exam: Soft. absent: Distended, Tenderness Additional comments: small area off ecchymosis with no swelling on the left groin puncture site - Extremities Exam Extremities Exam: absent: Calf Tenderness, Pedal Edema, Tenderness Additional comments: right foot with small areas of skin breakdown on the toes, palpable TP, foot and toes warm to the touch with good capillary refill, gross neuromuscular exam intact - Neurological Exam Neurological Exam: Alert, Awake, Oriented x3 - Psychiatric Exam Psychiatric exam: Normal Affect, Normal Mood - Skin Skin Exam: Dry, Normal Color, Warm Assessment and Plan - Assessment and Plan (Free Text) Assessment: 63M with PAD and chronic right toe wounds POD#1 s/p angiocatheterization, balloon angioplasty of the right posterior tibial artery Plan: Patient recovered well from procedure No further intervention from surgery Podiatry and primary recs May follow up with Dr. Child in his office in 1-[address] Danyell Perales, PGY2
--- NOTE | 2018-11-28 17:31 | CP.PCM.PN ---
Subjective - Date & Time of Evaluation Date of Evaluation: 11/28/18 Time of Evaluation: 11:00 - Subjective Subjective: alert, awake, no sob or distress, no acute pain. Objective - Vital Signs/Intake and Output Vital Signs (last 24 hours): Temp Pulse Resp BP Pulse Ox 98.7 F 68 20 130/78 97 11/28/18 07:29 11/28/18 07:29 11/28/18 07:29 11/28/18 07:29 11/28/18 15:58 Intake and Output: 11/28/18 11/28/18 06:59 18:59 Intake Total 450 290 Balance 450 290 - Labs Labs: 11/26/18 07:10 11/26/18 07:10 PT 11.0 SECONDS (9.7-12.2) 11/26/18 07:10 INR 1.0 11/26/18 07:10 APTT 28 SECONDS (21-34) 11/26/18 07:10 Assessment and Plan - Assessment and Plan (Free Text) Assessment: Patient admitted with toe ulcer, s/p angioplasty by DR Walker, seen and examined. Alert and orientedx3, denies acute pain, ambulating well. Discussed with DR Fishman and DR Fernandes, plan to discharge home on levaquin 750mg po dailyx7 days. Advised to follow up with PMD and DR Bright in 1 week.
== END 2018-11-28 16:04 | disposition home or self-care (01) | DRG 478 ==
LOC: C.ER 16:28 → UNDOADMOB 20:19 → C.9E 20:19 → C.3T 20:29 → OBSVTOIN 11-25 16:48
PROVIDERS: ADMIT Internal Medicine Cardiovascular Disease; ATTEND Internal Medicine Cardiovascular Disease
PROC: 047R3ZZ Dilation of Right Posterior Tibial Artery, Percutaneous Approach (ICD-10-PCS; principal; 2018-11-27)
PROC: 047R3ZZ Dilation of Right Posterior Tibial Artery, Percutaneous Approach (ICD-10-PCS; 2018-11-27)
DX: E11.52 Type 2 diabetes mellitus with diabetic peripheral angiopathy with gangrene (principal); L97.519 Non-pressure chronic ulcer of other part of right foot with unspecified severity; I96 Gangrene, not elsewhere classified; L03.115 Cellulitis of right lower limb; E11.621 Type 2 diabetes mellitus with foot ulcer; E78.5 Hyperlipidemia, unspecified; I10 Essential (primary) hypertension; N28.9 Disorder of kidney and ureter, unspecified; Z79.4 Long term (current) use of insulin

== ENCOUNTER 2019-01-31 16:18 | Inpatient (IN) | payer MEDICAID ==
[2019-01-31 16:19] VITALS: BMI 28.7
[2019-01-31] MEDS ORDERED: Aztreonam 1 GM in Sodium Chloride 0.9% 100 ML IVPB ONE (17:11)
[2019-01-31] MEDS ORDERED: Vancomycin 1 gm/NS 200 ml 1 GM/200 ML BAG IVPB STA (17:11)
--- NOTE | 2019-01-31 17:14 | C.PDOC ---
History Of Present Illness 63 yr old male w/ hx of Diabetes, Gastritis, HTN, Hyperlipidemia, diabetic foot ulcer, PVD, LLE stent p/w RLE ulcer. Pt was seen by Dr. Bright yesterday and notes that he was diagnosed w/ diabetic foot ulcer yesterday and told to come in. He denies any fall or trauma. No trauma to RLE. Pt has not been on any antibiotics for the foot. He denies any ascending redness to the R foot. HE notes ulcer to R 3rd and 5th digits. He denies any loss of sensation in his foot or inability to walk. He notes allergy to pencillin. No fever, chills or night sweats, No leg swelling Podiatry: Dr. Bright PMD: Kory Simon Time Seen by Provider: 01/31/19 16:48 Chief Complaint (Nursing): Lower Extremity Problem/Injury Past Medical History Vital Signs: Last Vital Signs Temp 98.8 F 01/31/19 16:49 Pulse 74 01/31/19 16:49 Resp 18 01/31/19 16:49 BP 158/89 H 01/31/19 16:49 Pulse Ox 97 01/31/19 16:49 Primary Care Provider: Non [facility] Provider, - Medical History PMH: Diabetes, Gastritis, HTN, Hyperlipidemia - [facility] Procedures (04/04/18) DILATION OF RIGHT POSTERIOR TIBIAL ARTERY, PERC APPROACH (11/25/18) INSPECTION OF LOWER INTESTINAL TRACT, ENDO (04/04/18) Family History: States: Unknown Family Hx - Social History Hx Alcohol Use: No Hx Substance Use: No - Immunization History Hx Tetanus Toxoid Vaccination: No Hx Influenza Vaccination: No Hx Pneumococcal Vaccination: Yes Physical Exam - Physical Exam Appears: Well, No Acute Distress Skin: Normal Color, Warm, Dry Eye(s): bilateral: Normal Inspection, PERRL, EOMI Nose: Normal Oral Mucosa: Moist Tongue: Normal Appearing Lips: Normal Appearing Teeth: Normal Dentition Throat: Normal, No Erythema, No Exudate Neck: Normal, Normal ROM, No Midline Cervical Tenderness, Supple, Other (no meningeal signs) Cardiovascular: Rhythm Regular, No Edema, No Murmur Respiratory: Normal Breath Sounds Gastrointestinal/Abdominal: Normal Exam Back: Normal Inspection, No CVA Tenderness, No Vertebral Tenderness Extremity: Normal ROM, No Pedal Edema, No Calf Tenderness, No Swelling, Other (R 3rd and 5th digit tip ulceration and dry necrosis appearing. No crepitius or ascending erythema. Foul smelling. Good N/V status in BL /LE. Negative thompsons test) Extremity: Bilateral: Hips Non-Tender, Normal ROM, Pelvis-Stable Neurological/Psych: Oriented x3, Normal Speech, Normal Cognition Gait: Steady ED Course And Treatment - Laboratory Results Result Diagrams: 02/01/19 07:04 02/01/19 07:04 O2 Sat by Pulse Oximetry: 97 Medical Decision Making Medical Decision Makin yr old male w/ hx of Diabetes, Gastritis, HTN, Hyperlipidemia, diabetic foot ulcer, PVD, LLE stent p/w RLE ulcer. Pt was seen by Dr. Bright yesterday and sent in for RLE diabetic foot ulcer. Dry gangrene appearing without any indication of nec fasc. No appreciable trauma per pt, negative thompsons. No other complaints- no fever, chills or night sweats or chest pain. Likely diabetic foot ulcer requiring inpatient admission. 1721 appreciate consult w/ DPJonah resident: Naomi: Abx, Xray and labs reccomended. Ordered. N/V intact in RLE, pending imaging, labs, pt in nad EK, nsr, no stemi 1913 labs largely unremarkable xray largely unremarkable appreciate consult w/ Dr. Fernandes: to admit to her service. pt in NAD, VSS, agreeable to plan Disposition - Disposition Disposition: HOSPITALIZED Disposition Time: 19:17 Condition: STABLE - Clinical Impression Clinical Impression: Foot infection
[2019-01-31 17:35] LABS: BASO % 0.6 % (0.0-2.0); EOS # 0.1 K/uL (0.0-0.7); EOS % 1.6 % (0.0-4.0); HEMOGLOBIN 13.3 g/dL (12.0-18.0); LYMPH # 2.4 K/uL (1.0-4.3); LYMPH % 34.3 % (20.0-40.0); MEAN CELL VOLUME 95.7 fL (80.0-94.0); MEAN CORPUSCULAR HEMOGLOBIN 32.4 pg (27.0-31.0); MEAN CORPUSCULAR HGB CONC 33.9 g/dL (33.0-37.0); MEAN PLATELET VOLUME 8.1 fL (7.2-11.7); MONO # 0.5 K/uL (0.0-0.8); NEUT # 3.9 K/uL (1.8-7.0); NEUT % 56.5 % (50.0-75.0); NRBC % 0.1 % (0.0-2.0); RBC 4.1 Mil/uL (4.40-5.90); RED CELL DISTRIBUTION WIDTH 13.6 % (11.5-14.5); WHITE BLOOD COUNT 6.9 K/uL (4.8-10.8)
[2019-01-31 17:52] LABS: ALB/GLOB RATIO 1.3 (1.0-2.1); ALBUMIN 4.4 g/dL (3.5-5.0); ALT/SGPT 14 U/L (21-72); AST/SGOT 21 U/L (17-59); BLOOD UREA NITROGEN 18 mg/dL (9-20); CALCIUM 10.2 mg/dl (8.6-10.4); GFR NON-AFRICAN AMERICAN > 60
[2019-01-31] MEDS ORDERED: Vancomycin 1 GM 1 GM/250 ML BAG IVPB ONE (17:54)
--- NOTE | 2019-01-31 20:00 | CP.PCM.CON ---
History of Present Illness - History of Present Illness History of Present Illness: Podiatry Consult Note - Dr. Bright 63 year old male with PMHx of NIDDM, HTN, HLD seen in ED this evening for right foot 3rd and 5th digit redness and pain. Patient was sent to ED by Dr. Bright who recommended admission for antibiotics due to the cellulitis on his foot. He states he has been having pain to the toes and throughout the right foot for a week or so. States he was in the hospital a couple of months ago for the same problem. Patient admits to occasional numbness, burning, and tingling in the feet. At present, he denies F/C/N/V/CP/SOB PMHx: NIDDM, HTN, HLD, gastritis PSHx: denies SocHx: denies ETOH, tobacco or illicit drug use FamHx: unknown All: PCN Review of Systems - Review of Systems All systems: reviewed and no additional remarkable complaints except (per HPI) Past Patient History - Infectious Disease Hx of Infectious Diseases: None - Past Medical History & Family History Past Medical History?: Yes - Past Social History Smoking Status: Never Smoked - CARDIAC Hx Hypertension: Yes - ENDOCRINE/METABOLIC Hx Endocrine Disorders: Yes Hx Diabetes Mellitus Type 2: Yes - MUSCULOSKELETAL/RHEUMATOLOGICAL Hx Falls: No - GASTROINTESTINAL Hx Gastritis: Yes - GENITOURINARY/GYNECOLOGICAL Hx Prostate Problems: Yes - PSYCHIATRIC Hx Substance Use: No - SURGICAL HISTORY Hx Surgeries: No - ANESTHESIA Hx Anesthesia: No Hx Anesthesia Reactions: No Hx Malignant Hyperthermia: No Meds Allergies/Adverse Reactions: Allergies Allergy/AdvReac Type Severity Reaction Status Date / Time Penicillins Allergy Verified 01/31/19 17:01 Physical Exam - Constitutional Appears: Well, Non-toxic, No Acute Distress - Extremities Exam Additional comments: Right lower extremity focused exam: Vasc: DP/PT pulses palpable 1/4. CFT <3 seconds to digits, unable to asses 3rd and 5th digits secondary to discoloration with hyperkeratosis. Temperature gradient warm to warm with no significant localized increase in warmth noted to digits. No pedal edema noted Neuro: Light touch and protective sensation grossly diminished Derm: Hyperkeratotic healed ulcerations noted to right foot 3rd and 5th digits with thick, eschar cap noted. Mild black discoloration noted to hyperkeratotic skin caps. No distinct breaks in skin or soft tissue present. Cellulitic skin changes surrounding 3rd and 5th digits extending to the level of the MPJs. No open lesions noted. Ortho: Mild pain on palpation noted to 3rd and 5th digits - Neurological Exam Neurological exam: Alert, Oriented x3 - Psychiatric Exam Psychiatric exam: Normal Affect, Normal Mood Results - Vital Signs Recent Vital Signs: Last Vital Signs Temp 98.8 F 01/31/19 16:49 Pulse 74 01/31/19 16:49 Resp 18 01/31/19 16:49 BP 158/89 H 01/31/19 16:49 Pulse Ox 97 01/31/19 19:17 - Labs Result Diagrams: 01/31/19 17:26 01/31/19 17:26 Labs: Laboratory Results - last 24 hr 01/31/19 01/31/19 17:26 17:26 WBC 6.9 RBC 4.10 L Hgb 13.3 Hct 39.2 MCV 95.7 H MCH 32.4 H MCHC 33.9 RDW 13.6 Plt Count 296 MPV 8.1 Neut % (Auto) 56.5 Lymph % (Auto) 34.3 [place] % (Auto) 7.0 Eos % (Auto) 1.6 Baso % (Auto) 0.6 Neut # (Auto) 3.9 Lymph # (Auto) 2.4 [place] # (Auto) 0.5 Eos # (Auto) 0.1 Baso # (Auto) 0.0 Sodium 135 Potassium 5.1 Chloride 96 L Carbon Dioxide 25 Anion Gap 19 BUN 18 Creatinine 1.2 Est GFR ( Amer) > 60 Est GFR (Non-Af Amer) > 60 Random Glucose 227 H Calcium 10.2 Total Bilirubin 0.4 AST 21 ALT 14 L Alkaline Phosphatase 86 Total Protein 7.8 Albumin 4.4 Globulin 3.4 Albumin/Globulin Ratio 1.3 Assessment & Plan - Assessment and Plan (Free Text) Assessment: 63 y/o diabetic male with right foot 3rd and 5th digit ulcers + cellulitis Plan: Patient seen and evaluated Discussed with attending, Dr. Bright Afebrile, no leukocytosis noted Right foot x-ray reviewed - reveals no evidence of cortical erosion or acute osseous findings Vancomycin and Azactam given in ED GIAN/PVRs performed 11/2018 show no arterial insufficiency Patient to be admitted for IV antibiotics Podiatry will continue to follow while in house
--- NOTE | 2019-01-31 20:43 | CP.PCM.HP ---
History of Present Illness - History of Present Illness History of Present Illness: H&P Dr. Wesley Fernandes's service CC " right foot pain" HPI: Patient is a 63 year old male with history of diabetes and hypertension who presents for evaluation after he was seen by Dr. Bright and told to come in to the ER for failed outpatient treatment of diabetic foot ulcers on 3rd and 5th digit. He states he was treated for same ulcers about 3 months ago. He states he has some burning pain that is intermittent in nature of the right foot, but he continues to be able to walk on it. He was diagnosed with diabetes at age 45, he states he checks his blood sugar levels at home and they are typically in 160s, however states that his blood sugar are higher in the hospital. He denies fevers, chills, headache, lightheadedness, dizziness, chest pain, shortness of breath, palpitations, abdominal pain, nausea, vomiting, diarrhea, constipation, dysuria, hematuria, lower extremity swelling, rash, weight changes. He was recently admitted here in November 2018 for same ulcers of right 3rd and 5th digit, was treated with IV antibiotics after wound cultures were positive for Streptococcus Group B, with bone scan negative for osteomyelitis. In November 2018, he had a CT angio of the lower extremities and had subsequent balloon angioplasty of right posterial tibial artery however anterior tibial artery could not be cannulized. PMH: diabetes, hypertension, peripheral vascular disease, PSH: balloon angioplasty of right posterior tibial artery Social history: denies history of tobacco, alcohol or drug use. Doesn't work currently. Family hx: noncontributory Home meds: Metformin 1000mg PO BID, Amaryl 4mg PO BID, Losartan 50mg PO daily Allergies: PCN Present on Admission - Present on Admission Any Indicators Present on Admission: Yes History of Uncontrolled Diabetes: Yes Review of Systems - Constitutional Constitutional: absent: Chills, Fever, Headache - EENT Eyes: absent: Change in Vision Ears: absent: Decreased Hearing Nose/Mouth/Throat: absent: Sore Throat - Cardiovascular Cardiovascular: absent: Chest Pain, Dyspnea - Respiratory Respiratory: absent: Cough, Dyspnea Past Patient History - Infectious Disease Hx of Infectious Diseases: None - Past Medical History & Family History Past Medical History?: Yes - Past Social History Smoking Status: Never Smoked - CARDIAC Hx Hypertension: Yes - ENDOCRINE/METABOLIC Hx Endocrine Disorders: Yes Hx Diabetes Mellitus Type 2: Yes - MUSCULOSKELETAL/RHEUMATOLOGICAL Hx Falls: No - GASTROINTESTINAL Hx Gastritis: Yes - GENITOURINARY/GYNECOLOGICAL Hx Prostate Problems: Yes - PSYCHIATRIC Hx Substance Use: No - SURGICAL HISTORY Hx Surgeries: No - ANESTHESIA Hx Anesthesia: No Hx Anesthesia Reactions: No Hx Malignant Hyperthermia: No Meds Allergies/Adverse Reactions: Allergies Allergy/AdvReac Type Severity Reaction Status Date / Time Penicillins Allergy Verified 01/31/19 17:01 Physical Exam - Constitutional Appears: Well, Non-toxic, No Acute Distress - Head Exam Head Exam: ATRAUMATIC, NORMOCEPHALIC - Eye Exam Eye Exam: EOMI, PERRL. absent: Nystagmus - ENT Exam ENT Exam: Mucous Membranes Moist - Neck Exam Neck exam: Positive for: Full Rom. Negative for: Lymphadenopathy, Tenderness, Thyromegaly - Respiratory Exam Respiratory Exam: Clear to Auscultation Bilateral, NORMAL BREATHING PATTERN. absent: Rales, Rhonchi, Wheezes, Respiratory Distress, Stridor - Cardiovascular Exam Cardiovascular Exam: REGULAR RHYTHM, +S1, +S2. absent: Gallop, Rubs, Systolic Murmur - GI/Abdominal Exam GI & Abdominal Exam: Normal Bowel Sounds, Soft. absent: Distended, Firm, Guarding, Rebound, Rigid, Tenderness - Extremities Exam Extremities exam: Positive for: pedal pulses present. Negative for: calf tenderness, pedal edema Additional comments: Right foot: 3rd and 5th digit distal tip discoloration with hyperkeratosis and discoloration, no actively draining lesions. Mild tenderness to palpation of right 3rd and 5th digit. - Back Exam Back exam: absent: CVA tenderness (L), CVA tenderness (R) - Neurological Exam Neurological exam: Alert, CN II-XII Intact, Oriented x3 - Psychiatric Exam Psychiatric exam: Normal Affect, Normal Mood - Skin Skin Exam: Dry, Intact, Warm Results - Vital Signs Recent Vital Signs: Last Vital Signs Temp 98.8 F 01/31/19 16:49 Pulse 74 01/31/19 16:49 Resp 18 01/31/19 16:49 BP 158/89 H 01/31/19 16:49 Pulse Ox 97 01/31/19 19:17 - Labs Result Diagrams: 01/31/19 17:26 01/31/19 17:26 Labs: Laboratory Results - last 24 hr 01/31/19 01/31/19 17:26 17:26 WBC 6.9 RBC 4.10 L Hgb 13.3 Hct 39.2 MCV 95.7 H MCH 32.4 H MCHC 33.9 RDW 13.6 Plt Count 296 MPV 8.1 Neut % (Auto) 56.5 Lymph % (Auto) 34.3 [place] % (Auto) 7.0 Eos % (Auto) 1.6 Baso % (Auto) 0.6 Neut # (Auto) 3.9 Lymph # (Auto) 2.4 [place] # (Auto) 0.5 Eos # (Auto) 0.1 Baso # (Auto) 0.0 Sodium 135 Potassium 5.1 Chloride 96 L Carbon Dioxide 25 Anion Gap 19 BUN 18 Creatinine 1.2 Est GFR ( Amer) > 60 Est GFR (Non-Af Amer) > 60 Random Glucose 227 H Calcium 10.2 Total Bilirubin 0.4 AST 21 ALT 14 L Alkaline Phosphatase 86 Total Protein 7.8 Albumin 4.4 Globulin 3.4 Albumin/Globulin Ratio 1.3 Assessment & Plan - Assessment and Plan (Free Text) Assessment: 63 year old male with history of diabetes, hypertension who presents for diabetic foot ulcers. Plan: Diabetic foot ulcers of right 3rd and 5th digit Failed outpatient antibiotic treatment Continue Vancomycin 1g Q12 Continue Azactam 1g Q8 Follow up Vanco trough level Follow up blood cultures, wound cultures Podiatry on board Right foot Xrays ordered CT angio from Nov 2018 subsequent balloon angioplasty of right posterior tibial artery however anterior tibial artery could not be cannulized. Type 2 diabetes, chronic Last A1c 11.8 from November 2018 Low dose ISS Hypoglycemia protocol Peripheral Neuropathic pain Likely secondary to uncontrolled diabetes, chronic Low dose ISS Hypoglycemic protocol Peripheral vascular disease, chronic Patient has had balloon angioplasty of right posterior tibial artery in Nov 2018 Prophylaxis Consistent carb diet Heparin 5000 units SC Q8 Protonix 40mg IV daily Case discussed with Dr. Wesley Leiva, PGY1
[2019-01-31] MEDS ORDERED: Dextrose 50% SYRINGE Inj (50 ml) IV PRN (20:44)
[2019-01-31] MEDS ORDERED: Glucagon Recombinant 1 mg Inj IM PRN (20:44)
[2019-01-31] MEDS: (Novolin R) Insulin Human Regular 100 units/ml vial SC SCH (21:38)
--- NOTE | 2019-01-31 21:53 | RAD ---
PROCEDURE: Right foot radiographs. Three views. HISTORY: infx COMPARISON: None available. FINDINGS: BONES: Calcaneal enthesophyte. No acute displaced fracture. JOINTS: No dislocation. SOFT TISSUES: Vascular calcifications. No evidence of radiopaque foreign body. OTHER FINDINGS: None. IMPRESSION: No acute findings identified. Please note that MRI without and with IV contrast most sensitive in detection of acute osteomyelitis.
--- NOTE | 2019-01-31 21:55 | RAD ---
Single lateral view of the 5th right digit (foot) Comparison with right foot radiographs performed the same day. Findings: Limited visualization; overlying digits obscure evaluation. No acute displaced fracture or osseous erosion appreciated on this limited view. Dense vascular calcification. Soft tissue swelling. No evidence of radiopaque foreign body Impression: Limited visualization with overlying digits obscuring evaluation. No acute displaced fracture or osseous erosion appreciated on this limited view. Dense vascular calcification. Soft tissue swelling. No evidence of radiopaque foreign body
--- NOTE | 2019-01-31 21:55 | RAD ---
Single lateral view of the 3rd right digit (foot) Comparison with right foot radiographs performed the same day. Findings: Limited visualization with overlying digits obscuring evaluation. No acute displaced fracture or osseous erosion appreciated on this limited view. Dense vascular calcification. Soft tissue swelling. No evidence of radiopaque foreign body Impression: Limited visualization with overlying digits obscuring evaluation. No acute displaced fracture or osseous erosion appreciated on this limited view. Dense vascular calcification. Soft tissue swelling. No evidence of radiopaque foreign body
[2019-02-01] MEDS: Aztreonam 1 GM in Sodium Chloride 0.9% 100 ML IVPB SCH ×3 (01:33→17:52)
[2019-02-01] MEDS: Vancomycin 1 gm/NS 200 ml 1 GM/200 ML BAG IVPB SCH ×2 (05:09→17:53)
[2019-02-01 07:27] LABS: BASO % 0.6 % (0.0-2.0); EOS # 0.2 K/uL (0.0-0.7); HEMOGLOBIN 13.2 g/dL (12.0-18.0); LYMPH % 38.1 % (20.0-40.0); MEAN CELL VOLUME 97.2 fL (80.0-94.0); MEAN CORPUSCULAR HEMOGLOBIN 32.5 pg (27.0-31.0); MEAN CORPUSCULAR HGB CONC 33.4 g/dL (33.0-37.0); MEAN PLATELET VOLUME 8.3 fL (7.2-11.7); MONO # 0.4 K/uL (0.0-0.8); MONO % 7.4 % (0.0-10.0); NEUT # 2.7 K/uL (1.8-7.0); NEUT % 50.9 % (50.0-75.0); NRBC % 0.1 % (0.0-2.0); RBC 4.05 Mil/uL (4.40-5.90); RED CELL DISTRIBUTION WIDTH 13.5 % (11.5-14.5); WHITE BLOOD COUNT 5.3 K/uL (4.8-10.8)
[2019-02-01] MEDS: (Novolin R) Insulin Human Regular 100 units/ml vial SC SCH ×4 (07:46→21:46)
--- NOTE | 2019-02-01 07:46 | CP.PCM.PN ---
<Rakan Mata - Last Filed: 02/01/19 17:22> Subjective - Date & Time of Evaluation Date of Evaluation: 02/01/19 Time of Evaluation: 09:07 - Subjective Subjective: Medicine progress note for hospitalist Dr. Luevano. Patient seen and examined at bedside. Pt reports some tenderness/pain on 3 & 5 digit of R foot. Denies fevers/ chills, headaches, vision changes, chest pain, SOB, nausea, vomiting, abdominal pain, diarrhea, constipation. Objective - Vital Signs/Intake and Output Vital Signs (last 24 hours): Temp Pulse Resp BP Pulse Ox 98.3 F 69 20 136/75 95 02/01/19 00:00 02/01/19 00:00 02/01/19 00:00 02/01/19 00:00 02/01/19 00:00 Intake and Output: 02/01/19 02/01/19 06:59 18:59 Intake Total 650 Balance 650 - Medications Medications: Current Medications Dextrose (Dextrose 50% Inj) 0 ml IV STAT PRN; Protocol PRN Reason: Hypoglycemia Protocol Dextrose (Glutose 15) 0 gm PO ONCE PRN; Protocol PRN Reason: Hypoglycemia Protocol Glucagon (Glucagen Diagnostic Kit) 0 mg IM STAT PRN; Protocol PRN Reason: Hypoglycemia Protocol Heparin Sodium (Porcine) (Heparin) 5,000 units SC Q8 THAI Last Admin: 02/01/19 05:09 Dose: 5,000 units Vancomycin/Sodium Chloride (Vancomycin 1 Gm/Ns 200 Ml) 1 gm in 200 mls @ 133 mls/hr IVPB Q12H THAI; Protocol Stop: 02/06/19 06:01 Last Admin: 02/01/19 05:09 Dose: 133 mls/hr Aztreonam 1 gm/ Sodium (Chloride) 100 mls @ 100 mls/hr IVPB Q8H THAI; Protocol Last Admin: 02/01/19 01:33 Dose: 100 mls/hr Dextrose (Dextrose 5% In Water 1000 Ml) 1,000 mls @ 0 mls/hr IV .Q0M PRN; Protocol PRN Reason: Hypoglycemia Protocol Insulin Human Regular (Novolin R) 0 unit SC ACHS THAI; Protocol Last Admin: 01/31/19 21:38 Dose: Not Given Pantoprazole Sodium (Protonix Inj) 40 mg IVP DAILY THAI - Labs Labs: 02/01/19 07:04 01/31/19 17:26 - Constitutional Appears: Non-toxic, No Acute Distress - Head Exam Head Exam: NORMAL INSPECTION - Eye Exam Eye Exam: EOMI, Normal appearance - ENT Exam ENT Exam: Mucous Membranes Moist - Respiratory Exam Respiratory Exam: Clear to Ausculation Bilateral, NORMAL BREATHING PATTERN. ab sent: Rales, Rhonchi, Wheezes - Cardiovascular Exam Cardiovascular Exam: +S1, +S2. absent: Murmur - GI/Abdominal Exam GI & Abdominal Exam: Soft, Normal Bowel Sounds - Back Exam Back Exam: absent: CVA tenderness (L), CVA tenderness (R) - Neurological Exam Neurological Exam: Alert, Awake, Oriented x3 - Psychiatric Exam Psychiatric exam: Normal Affect, Normal Mood - Skin Skin Exam: Dry, Normal Color, Warm Additional comments: Right foot: 3rd and 5th digit distal tip discoloration with hyperkeratosis and discoloration, no actively draining lesions. Mild tenderness to palpation of right 3rd and 5th digit. Assessment and Plan - Assessment and Plan (Free Text) Assessment: 63 year old male with history of diabetes, hypertension who presents for diabetic foot ulcers; IV abx, f/u podiatry recs Plan: Diabetic foot ulcers of right 3rd and 5th digit Failed outpatient antibiotic treatment Continue Vancomycin 1g Q12 Continue Azactam 1g Q8 F/u Vanco trough level F/u blood cultures; wound cultures - no growth 24H F/u podiatry recs F/u foot MRI Cxray - no acute fractures; soft tissue swelling CT angio from Nov 2018 subsequent balloon angioplasty of right posterior tibial artery however anterior tibial artery could not be cannulized. Type 2 diabetes, chronic Last A1c 11.8 from November 2018 Low dose ISS Hypoglycemia protocol Peripheral Neuropathic pain Likely secondary to uncontrolled diabetes, chronic Low dose ISS Hypoglycemic protocol Peripheral vascular disease, chronic Patient has had balloon angioplasty of right posterior tibial artery in Nov 2018 Prophylaxis Consistent carb diet Heparin 5000 units SC Q8 Protonix 40mg IV daily <David Luevano H - Last Filed: 02/01/19 18:07> Objective - Vital Signs/Intake and Output Vital Signs (last 24 hours): Temp Pulse Resp BP Pulse Ox 98.9 F 75 18 159/88 H 97 02/01/19 08:34 02/01/19 08:34 02/01/19 08:34 02/01/19 08:34 02/01/19 15:24 Intake and Output: 02/01/19 02/01/19 06:59 18:59 Intake Total 650 Balance 650 - Medications Medications: Current Medications Dextrose (Dextrose 50% Inj) 0 ml IV STAT PRN; Protocol PRN Reason: Hypoglycemia Protocol Dextrose (Glutose 15) 0 gm PO ONCE PRN; Protocol PRN Reason: Hypoglycemia Protocol Glucagon (Glucagen Diagnostic Kit) 0 mg IM STAT PRN; Protocol PRN Reason: Hypoglycemia Protocol Heparin Sodium (Porcine) (Heparin) 5,000 units SC Q8 THAI Last Admin: 02/01/19 13:28 Dose: 5,000 units Vancomycin/Sodium Chloride (Vancomycin 1 Gm/Ns 200 Ml) 1 gm in 200 mls @ 133 mls/hr IVPB Q12H THAI; Protocol Stop: 02/06/19 06:01 Last Admin: 02/01/19 17:53 Dose: 133 mls/hr Aztreonam 1 gm/ Sodium (Chloride) 100 mls @ 100 mls/hr IVPB Q8H THAI; Protocol Last Admin: 02/01/19 17:52 Dose: 100 mls/hr Dextrose (Dextrose 5% In Water 1000 Ml) 1,000 mls @ 0 mls/hr IV .Q0M PRN; Protocol PRN Reason: Hypoglycemia Protocol Insulin Human Regular (Novolin R) 0 unit SC ACHS THAI; Protocol Last Admin: 02/01/19 17:59 Dose: 6 units Pantoprazole Sodium (Protonix Inj) 40 mg IVP DAILY THAI Last Admin: 02/01/19 09:20 Dose: 40 mg - Labs Labs: 02/01/19 07:04 02/01/19 07:04 Attending/Attestation - Attestation I have personally seen and examined this patient.: Yes I have fully participated in the care of the patient.: Yes I have reviewed all pertinent clinical information, including history, physical exam and plan: Yes Notes (Text): 02/01/19 18:02 Medical attending: Patient was seen and examined by me. Agree with the above note by the resident The patient was not in any acute distress when we came and saw him. He currently remains on IV abx and also pending further imaging ordered by podiatry. He says he is able to walk with minimal pain at this time. He also reports the toes in questions seem cold to him He had ballon agioplasty done just recently for PVD however they couldn't address all the vessels in question. David Luevano
[2019-02-01 08:08] LABS: ALB/GLOB RATIO 1.3 (1.0-2.1); ALBUMIN 3.6 g/dL (3.5-5.0); ALT/SGPT 21 U/L (21-72); AST/SGOT 18 U/L (17-59); BLOOD UREA NITROGEN 17 mg/dL (9-20); CALCIUM 9.3 mg/dl (8.6-10.4); GFR NON-AFRICAN AMERICAN > 60
--- NOTE | 2019-02-01 10:58 | CP.PCM.PN ---
Subjective - Date & Time of Evaluation Date of Evaluation: 02/01/19 Time of Evaluation: 10:58 - Subjective Subjective: Podiatry Progress Note - Dr. Bright 63M seen and evaluated this AM for right 3rd and 5th digit infected wounds. NAD. No acute events overnight. Patient reports pain around wound sites unchanged. Denies n/v/f/d/c/sob/del toro/cp. No other complaints. Objective - Vital Signs/Intake and Output Vital Signs (last 24 hours): Temp Pulse Resp BP Pulse Ox 98.9 F 75 18 159/88 H 95 02/01/19 08:34 02/01/19 08:34 02/01/19 08:34 02/01/19 08:34 02/01/19 08:34 Intake and Output: 02/01/19 02/01/19 06:59 18:59 Intake Total 650 Balance 650 - Medications Medications: Current Medications Dextrose (Dextrose 50% Inj) 0 ml IV STAT PRN; Protocol PRN Reason: Hypoglycemia Protocol Dextrose (Glutose 15) 0 gm PO ONCE PRN; Protocol PRN Reason: Hypoglycemia Protocol Glucagon (Glucagen Diagnostic Kit) 0 mg IM STAT PRN; Protocol PRN Reason: Hypoglycemia Protocol Heparin Sodium (Porcine) (Heparin) 5,000 units SC Q8 THAI Last Admin: 02/01/19 05:09 Dose: 5,000 units Vancomycin/Sodium Chloride (Vancomycin 1 Gm/Ns 200 Ml) 1 gm in 200 mls @ 133 mls/hr IVPB Q12H THAI; Protocol Stop: 02/06/19 06:01 Last Admin: 02/01/19 05:09 Dose: 133 mls/hr Aztreonam 1 gm/ Sodium (Chloride) 100 mls @ 100 mls/hr IVPB Q8H THAI; Protocol Last Admin: 02/01/19 10:55 Dose: 100 mls/hr Dextrose (Dextrose 5% In Water 1000 Ml) 1,000 mls @ 0 mls/hr IV .Q0M PRN; Protocol PRN Reason: Hypoglycemia Protocol Insulin Human Regular (Novolin R) 0 unit SC ACHS THAI; Protocol Last Admin: 02/01/19 07:46 Dose: 3 units Pantoprazole Sodium (Protonix Inj) 40 mg IVP DAILY THAI Last Admin: 02/01/19 09:20 Dose: 40 mg - Labs Labs: 02/01/19 07:04 02/01/19 07:04 - Constitutional Appears: Non-toxic, No Acute Distress - Extremities Exam Additional comments: Right lower extremity focused exam: Vasc: DP/PT pulses palpable 1/4. CFT <3 seconds to digits, unable to asses 3rd and 5th digits secondary to discoloration with hyperkeratosis. Temperature gradient warm to warm with no significant localized increase in warmth noted to digits. No pedal edema noted Neuro: Light touch and protective sensation grossly diminished Derm: Hyperkeratotic healed ulcerations noted to right foot 3rd and 5th digits with thick, eschar cap noted. Mild black discoloration noted to hyperkeratotic skin caps. No distinct breaks in skin or soft tissue present. Cellulitic skin changes surrounding 3rd and 5th digits extending to the level of the MPJs. No open lesions noted. Ortho: Mild pain on palpation noted to 3rd and 5th digits - Neurological Exam Neurological Exam: Alert, Awake, Oriented x3 - Psychiatric Exam Psychiatric exam: Normal Affect, Normal Mood Assessment and Plan - Assessment and Plan (Free Text) Assessment: 63 y/o diabetic male with right foot 3rd and 5th digit ulcers + cellulitis Plan: Patient seen and evaluated Discussed with attending, Dr. Bright VSS, WBC WNL Right foot x-ray reviewed - reveals no evidence of cortical erosion or acute oss eous findings RLE MRI ordered r/o OM Continue abx - Azactam, Vancomycin Right foot wound culture pending GIAN/PVRs performed 11/2018 show no arterial insufficiency Podiatry will continue to follow while in house
[2019-02-01 18:04] VITALS: RESP 20
[2019-02-02] MEDS: Aztreonam 1 GM in Sodium Chloride 0.9% 100 ML IVPB SCH ×3 (01:24→18:22)
[2019-02-02] MEDS: Vancomycin 1 gm/NS 200 ml 1 GM/200 ML BAG IVPB SCH ×2 (05:14→20:57)
[2019-02-02 06:27] LABS: BASO % 0.8 % (0.0-2.0); EOS # 0.2 K/uL (0.0-0.7); EOS % 2.8 % (0.0-4.0); HEMOGLOBIN 13.1 g/dL (12.0-18.0); LYMPH # 2.3 K/uL (1.0-4.3); LYMPH % 38.8 % (20.0-40.0); MEAN CELL VOLUME 97.6 fL (80.0-94.0); MEAN CORPUSCULAR HEMOGLOBIN 32.4 pg (27.0-31.0); MEAN CORPUSCULAR HGB CONC 33.2 g/dL (33.0-37.0); MEAN PLATELET VOLUME 8.1 fL (7.2-11.7); MONO # 0.4 K/uL (0.0-0.8); MONO % 6.4 % (0.0-10.0); NEUT # 3.1 K/uL (1.8-7.0); NEUT % 51.2 % (50.0-75.0); NRBC % 0.2 % (0.0-2.0); RBC 4.05 Mil/uL (4.40-5.90); RED CELL DISTRIBUTION WIDTH 13.8 % (11.5-14.5)
[2019-02-02 06:46] LABS: ALB/GLOB RATIO 1.3 (1.0-2.1); ALBUMIN 3.7 g/dL (3.5-5.0); ALT/SGPT 19 U/L (21-72); AST/SGOT 18 U/L (17-59); BLOOD UREA NITROGEN 19 mg/dL (9-20); CALCIUM 9.2 mg/dl (8.6-10.4); GFR NON-AFRICAN AMERICAN > 60
--- NOTE | 2019-02-02 07:03 | CP.PCM.PN ---
<Hipolito Bright - Last Filed: 02/02/19 07:03> Subjective - Date & Time of Evaluation Date of Evaluation: 02/02/19 Time of Evaluation: 07:03 Objective - Vital Signs/Intake and Output Vital Signs (last 24 hours): Temp Pulse Resp BP Pulse Ox 98.1 F 60 20 129/72 96 02/02/19 00:00 02/02/19 00:00 02/02/19 00:00 02/02/19 00:00 02/02/19 00:00 Intake and Output: 02/02/19 02/02/19 06:59 18:59 Intake Total 350 Balance 350 - Medications Medications: Current Medications Dextrose (Dextrose 50% Inj) 0 ml IV STAT PRN; Protocol PRN Reason: Hypoglycemia Protocol Dextrose (Glutose 15) 0 gm PO ONCE PRN; Protocol PRN Reason: Hypoglycemia Protocol Glucagon (Glucagen Diagnostic Kit) 0 mg IM STAT PRN; Protocol PRN Reason: Hypoglycemia Protocol Heparin Sodium (Porcine) (Heparin) 5,000 units SC Q8 THAI Last Admin: 02/02/19 05:13 Dose: 5,000 units Vancomycin/Sodium Chloride (Vancomycin 1 Gm/Ns 200 Ml) 1 gm in 200 mls @ 133 mls/hr IVPB Q12H THAI; Protocol Stop: 02/06/19 06:01 Last Admin: 02/02/19 05:14 Dose: 133 mls/hr Aztreonam 1 gm/ Sodium (Chloride) 100 mls @ 100 mls/hr IVPB Q8H THAI; Protocol Last Admin: 02/02/19 01:24 Dose: 100 mls/hr Dextrose (Dextrose 5% In Water 1000 Ml) 1,000 mls @ 0 mls/hr IV .Q0M PRN; Protocol PRN Reason: Hypoglycemia Protocol Insulin Human Regular (Novolin R) 0 unit SC ACHS THAI; Protocol Last Admin: 02/01/19 21:46 Dose: 2 units Pantoprazole Sodium (Protonix Inj) 40 mg IVP DAILY THAI Last Admin: 02/01/19 09:20 Dose: 40 mg - Labs Labs: 02/02/19 06:19 02/02/19 06:19 <Jesus Del Rio - Last Filed: 02/02/19 09:42> Subjective - Subjective Subjective: Podiatry Progress Note - Dr. Bright 63M seen and evaluated this AM with Dr. Bright for right 3rd and 5th digit infected wounds. Resting comfortably. Denies acute events overnight. Patient reports pain around wound sites unchanged. Denies n/v/f/d/c/sob/del toro/cp. No other complaints. Objective - Vital Signs/Intake and Output Vital Signs (last 24 hours): Temp Pulse Resp BP Pulse Ox 98.5 F 65 20 127/64 97 02/02/19 07:44 02/02/19 07:44 02/02/19 07:44 02/02/19 07:44 02/02/19 07:44 Intake and Output: 02/02/19 02/02/19 06:59 18:59 Intake Total 350 Balance 350 - Medications Medications: Current Medications Dextrose (Dextrose 50% Inj) 0 ml IV STAT PRN; Protocol PRN Reason: Hypoglycemia Protocol Dextrose (Glutose 15) 0 gm PO ONCE PRN; Protocol PRN Reason: Hypoglycemia Protocol Glucagon (Glucagen Diagnostic Kit) 0 mg IM STAT PRN; Protocol PRN Reason: Hypoglycemia Protocol Heparin Sodium (Porcine) (Heparin) 5,000 units SC Q8 THAI Last Admin: 02/02/19 05:13 Dose: 5,000 units Vancomycin/Sodium Chloride (Vancomycin 1 Gm/Ns 200 Ml) 1 gm in 200 mls @ 133 mls/hr IVPB Q12H THAI; Protocol Stop: 02/06/19 06:01 Last Admin: 02/02/19 05:14 Dose: 133 mls/hr Aztreonam 1 gm/ Sodium (Chloride) 100 mls @ 100 mls/hr IVPB Q8H THAI; Protocol Last Admin: 02/02/19 09:31 Dose: 100 mls/hr Dextrose (Dextrose 5% In Water 1000 Ml) 1,000 mls @ 0 mls/hr IV .Q0M PRN; Protocol PRN Reason: Hypoglycemia Protocol Insulin Human Regular (Novolin R) 0 unit SC ACHS THAI; Protocol Last Admin: 02/02/19 07:56 Dose: 3 units Pantoprazole Sodium (Protonix Inj) 40 mg IVP DAILY THAI Last Admin: 02/02/19 09:31 Dose: 40 mg - Labs Labs: 02/02/19 06:19 02/02/19 06:19 - Constitutional Appears: Non-toxic - Head Exam Head Exam: ATRAUMATIC - Extremities Exam Additional comments: Right lower extremity focused exam: Vasc: DP/PT pulses palpable 1/4. CFT <3 seconds to digits, unable to asses 3rd and 5th digits secondary to discoloration with hyperkeratosis. Temperature gradient warm to warm with no significant localized increase in warmth noted to digits. No pedal edema noted Neuro: Light touch and protective sensation grossly diminished Derm: Hyperkeratotic healed ulcerations noted to right foot 3rd and 5th digits with thick, eschar cap noted. Mild black discoloration noted to hyperkeratotic skin caps. No distinct breaks in skin or soft tissue present. Cellulitic skin changes surrounding 3rd and 5th digits extending to the level of the MPJs. No open lesions noted. Ortho: Mild pain on palpation noted to 3rd and 5th digits - Neurological Exam Neurological Exam: Alert, Awake, Oriented x3 - Psychiatric Exam Psychiatric exam: Normal Affect Assessment and Plan - Assessment and Plan (Free Text) Assessment: 63M with right foot 3rd and 5th digit ulcers + cellulitis Plan: Patient seen and evaluated with Dr. Bright VSS, WBC 6.0 Right foot x-ray reviewed - reveals no evidence of cortical erosion or acute osseous findings RLE MRI - (prelim) reactive marrow edema at the fifth worrisome for early osteomyelitis changes Continue abx - Azactam, Vancomycin Right foot wound culture pending GIAN/PVRs performed 11/2018 show no arterial insufficiency Podiatry will continue to follow while in house
--- NOTE | 2019-02-02 07:50 | CP.PCM.PN ---
<Rakan Mata - Last Filed: 02/02/19 07:50> Objective - Vital Signs/Intake and Output Vital Signs (last 24 hours): Temp Pulse Resp BP Pulse Ox 98.5 F 65 20 127/64 97 02/02/19 07:44 02/02/19 07:44 02/02/19 07:44 02/02/19 07:44 02/02/19 07:44 Intake and Output: 02/02/19 02/02/19 06:59 18:59 Intake Total 350 Balance 350 - Medications Medications: Current Medications Dextrose (Dextrose 50% Inj) 0 ml IV STAT PRN; Protocol PRN Reason: Hypoglycemia Protocol Dextrose (Glutose 15) 0 gm PO ONCE PRN; Protocol PRN Reason: Hypoglycemia Protocol Glucagon (Glucagen Diagnostic Kit) 0 mg IM STAT PRN; Protocol PRN Reason: Hypoglycemia Protocol Heparin Sodium (Porcine) (Heparin) 5,000 units SC Q8 [facility] Last Admin: 02/02/19 05:13 Dose: 5,000 units Vancomycin/Sodium Chloride (Vancomycin 1 Gm/Ns 200 Ml) 1 gm in 200 mls @ 133 mls/hr IVPB Q12H [facility]; Protocol Stop: 02/06/19 06:01 Last Admin: 02/02/19 05:14 Dose: 133 mls/hr Aztreonam 1 gm/ Sodium (Chloride) 100 mls @ 100 mls/hr IVPB Q8H [facility]; Protocol Last Admin: 02/02/19 01:24 Dose: 100 mls/hr Dextrose (Dextrose 5% In Water 1000 Ml) 1,000 mls @ 0 mls/hr IV .Q0M PRN; Protocol PRN Reason: Hypoglycemia Protocol Insulin Human Regular (Novolin R) 0 unit SC ACHS [facility]; Protocol Last Admin: 02/01/19 21:46 Dose: 2 units Pantoprazole Sodium (Protonix Inj) 40 mg IVP DAILY [facility] Last Admin: 02/01/19 09:20 Dose: 40 mg - Labs Labs: 02/02/19 06:19 02/02/19 06:19 <David Luevano - Last Filed: 02/02/19 13:00> Subjective - Date & Time of Evaluation Date of Evaluation: 02/02/19 Time of Evaluation: 11:45 - Subjective Subjective: Patient was seen and examined by me with the director medical economics Patient reports overal feeling fine. Denied fevers, denied chills. He is ambula ting. Like yesterday he reported that his 3rd and 5th toes of the right foot feel cool. He had an MRI of the right lower extremity yesterday and we are pending the read at this time. IV abx Vanco and Aztreonam are continuing at this time The blood sugars are very elevated. We changed to SSI high protocol and also added on Lantus 10. Objective - Vital Signs/Intake and Output Vital Signs (last 24 hours): Temp Pulse Resp BP Pulse Ox 98.5 F 65 20 127/64 97 02/02/19 07:44 02/02/19 07:44 02/02/19 07:44 02/02/19 07:44 02/02/19 07:44 Intake and Output: 02/02/19 02/02/19 06:59 18:59 Intake Total 350 Balance 350 - Medications Medications: Current Medications Dextrose (Dextrose 50% Inj) 0 ml IV STAT PRN; Protocol PRN Reason: Hypoglycemia Protocol Dextrose (Glutose 15) 0 gm PO ONCE PRN; Protocol PRN Reason: Hypoglycemia Protocol Glucagon (Glucagen Diagnostic Kit) 0 mg IM STAT PRN; Protocol PRN Reason: Hypoglycemia Protocol Heparin Sodium (Porcine) (Heparin) 5,000 units SC Q8 [facility] Last Admin: 02/02/19 05:13 Dose: 5,000 units Vancomycin/Sodium Chloride (Vancomycin 1 Gm/Ns 200 Ml) 1 gm in 200 mls @ 133 mls/hr IVPB Q12H [facility]; Protocol Stop: 02/06/19 06:01 Last Admin: 02/02/19 05:14 Dose: 133 mls/hr Aztreonam 1 gm/ Sodium (Chloride) 100 mls @ 100 mls/hr IVPB Q8H [facility]; Protocol Last Admin: 02/02/19 09:31 Dose: 100 mls/hr Dextrose (Dextrose 5% In Water 1000 Ml) 1,000 mls @ 0 mls/hr IV .Q0M PRN; P rotocol PRN Reason: Hypoglycemia Protocol Insulin Glargine (Lantus) 10 unit SC HS [facility] Insulin Human Regular (Novolin R) 0 unit SC ACHS [facility]; Protocol Last Admin: 02/02/19 11:42 Dose: 12 unit Pantoprazole Sodium (Protonix Inj) 40 mg IVP DAILY [facility] Last Admin: 02/02/19 09:31 Dose: 40 mg - Labs Labs: 02/02/19 06:19 02/02/19 06:19 - Constitutional Appears: Well, Non-toxic, No Acute Distress - Head Exam Head Exam: NORMAL INSPECTION, NORMOCEPHALIC - Eye Exam Eye Exam: EOMI, Normal appearance - ENT Exam ENT Exam: Mucous Membranes Moist - Respiratory Exam Respiratory Exam: Clear to Ausculation Bilateral, NORMAL BREATHING PATTERN - Cardiovascular Exam Cardiovascular Exam: REGULAR RHYTHM - GI/Abdominal Exam GI & Abdominal Exam: Soft, Normal Bowel Sounds. absent: Distended, Firm, Guarding, Rigid, Tenderness - Neurological Exam Neurological Exam: Alert, Awake, Normal Gait, Oriented x3 Neuro motor strength exam: Left Upper Extremity: 5, Right Upper Extremity: 5, Left Lower Extremity: 5, Right Lower Extremity: 5 - Psychiatric Exam Psychiatric exam: Normal Affect, Normal Mood - Skin Skin Exam: Normal Color, Warm Assessment and Plan - Assessment and Plan (Free Text) Assessment: 63 year old male with history of diabetes, hypertension who presents for diabetic foot ulcers; IV abx, f/u podiatry recs Plan: Diabetic foot ulcers of right 3rd and 5th digit Failed outpatient antibiotic treatment 02/02: Yesterday had MRI of the R lower extremity, we are pending results at this time. Continue Vancomycin 1g Q12 Continue Azactam 1g Q8 F/u Vanco trough level F/u blood cultures; wound cultures - no growth 24H F/u podiatry recs F/u foot MRI Cxray - no acute fractures; soft tissue swelling CT angio from Nov 2018 subsequent balloon angioplasty of right posterior tibial artery however anterior tibial artery could not be cannulized. Type 2 diabetes, chronic 5/: Accuchecks are elevated, added on Lantus and changed to a high protocol SSI Last A1c 11.8 from November 2018 Peripheral Neuropathic pain Likely secondary to uncontrolled diabetes, chronic 5/4: Added Lantus, SSI high protocol Consider gabapentin in the future Peripheral vascular disease, chronic Patient has had balloon angioplasty of right posterior tibial artery in Nov 2018 Prophylaxis Consistent carb diet Heparin 5000 units SC Q8 Protonix 40mg IV daily
[2019-02-02] MEDS: (Novolin R) Insulin Human Regular 100 units/ml vial SC SCH ×4 (07:56→21:28)
--- NOTE | 2019-02-02 13:00 | MRI ---
Date of service: 02/01/2019 PROCEDURE: MRI of the right foot without contrast HISTORY: 3rd and 5th digit ulcers r/o OM COMPARISON: Comparison is made with the previous three-phase bone scan of feet dated 11/23/2018. TECHNIQUE: Axial coronal and sagittal MRI images of the right foot were obtained without IV contrast administration. FINDINGS: The study is limited degraded by motion artifacts. There are foci of bone marrow edema noted at the distal head of the 5th metatarsal bone proximal and mid phalanx of the 5th toe. No definite evidence of cortical destruction at the 5th metatarsal bone or 5th toe. Findings likely represent bone marrow reaction. The possibility of an early osteomyelitis is not totally excluded in this sub optimal study. No definite evidence of bone marrow edema in 3rd toe. The rest of the visualized osseous structures demonstrate no acute pathology. There are arthritic degenerative changes in the tarsal metatarsal and metatarsal-phalangeal joints. The assessment of the soft tissue is somewhat limited. No evidence of discrete fluid collection. Trace amount of fluid noted at 5th metatarsal phalangeal joint IMPRESSION: Bone marrow edema at the distal head of the 5th metatarsal bone and in the proximal and mid phalanx of the 5th toe likely represent bone marrow reaction. The possibility of an early osteomyelitis is not totally excluded.
[2019-02-02] MEDS: (Lantus) Insulin Glargine, Recombinant SC SCH (21:34)
[2019-02-03] MEDS: Aztreonam 1 GM in Sodium Chloride 0.9% 100 ML IVPB SCH ×3 (01:55→17:33)
[2019-02-03] MEDS: Vancomycin 1 gm/NS 200 ml 1 GM/200 ML BAG IVPB SCH ×2 (05:25→18:47)
--- NOTE | 2019-02-03 07:23 | CP.PCM.PN ---
<Rakan Mata M - Last Filed: 02/03/19 12:29> Subjective - Date & Time of Evaluation Date of Evaluation: 02/03/19 Time of Evaluation: 09:35 - Subjective Subjective: Medicine progress note for hospitalist Dr. Luevano. Pt seen and examined at bedside. pt reports pain in toe as previous days. Denies fevers, chills, nasuea, vomitting. Pt does report some difficulty in ambulating 2/2 to pain in toes. Denies chest pain, SOB, constipation, diarrhea, difficulty urinating. Objective - Vital Signs/Intake and Output Vital Signs (last 24 hours): Temp Pulse Resp BP Pulse Ox 97.9 F 71 20 128/76 96 02/03/19 00:40 02/03/19 00:40 02/03/19 00:40 02/03/19 00:40 02/03/19 00:40 Intake and Output: 02/03/19 02/03/19 06:59 18:59 Intake Total 710 Balance 710 - Medications Medications: Current Medications Dextrose (Dextrose 50% Inj) 0 ml IV STAT PRN; Protocol PRN Reason: Hypoglycemia Protocol Dextrose (Glutose 15) 0 gm PO ONCE PRN; Protocol PRN Reason: Hypoglycemia Protocol Glucagon (Glucagen Diagnostic Kit) 0 mg IM STAT PRN; Protocol PRN Reason: Hypoglycemia Protocol Heparin Sodium (Porcine) (Heparin) 5,000 units SC Q8 [facility] Last Admin: 02/03/19 05:27 Dose: 5,000 units Vancomycin/Sodium Chloride (Vancomycin 1 Gm/Ns 200 Ml) 1 gm in 200 mls @ 133 mls/hr IVPB Q12H [facility]; Protocol Stop: 02/06/19 06:01 Last Admin: 02/03/19 05:25 Dose: 133 mls/hr Aztreonam 1 gm/ Sodium (Chloride) 100 mls @ 100 mls/hr IVPB Q8H [facility]; Protocol Last Admin: 02/03/19 01:55 Dose: 100 mls/hr Dextrose (Dextrose 5% In Water 1000 Ml) 1,000 mls @ 0 mls/hr IV .Q0M PRN; Protocol PRN Reason: Hypoglycemia Protocol Insulin Glargine (Lantus) 10 unit SC HS [facility] Last Admin: 02/02/19 21:34 Dose: 10 u Insulin Human Regular (Novolin R) 0 unit SC ACHS [facility]; Protocol Last Admin: 02/02/19 21:28 Dose: Not Given Pantoprazole Sodium (Protonix Inj) 40 mg IVP DAILY [facility] Last Admin: 02/02/19 09:31 Dose: 40 mg - Labs Labs: 02/02/19 06:19 02/02/19 06:19 - Constitutional Appears: Non-toxic, No Acute Distress - Head Exam Head Exam: NORMAL INSPECTION - Eye Exam Eye Exam: EOMI, Normal appearance - ENT Exam ENT Exam: Mucous Membranes Moist - Respiratory Exam Respiratory Exam: Clear to Ausculation Bilateral, NORMAL BREATHING PATTERN. absent: Rales, Rhonchi, Wheezes - Cardiovascular Exam Cardiovascular Exam: +S1, +S2. absent: Murmur - GI/Abdominal Exam GI & Abdominal Exam: Soft, Normal Bowel Sounds. absent: Firm, Guarding, Rigid - Extremities Exam Extremities Exam: Full ROM, Tenderness. absent: Calf Tenderness, Joint Swelling, Pedal Edema Additional comments: DP/PT pulses palpable 1/4; Hyperkeratotic healed ulcerations R foot 3rd and 5th digits with thick, eschar cap; mild black discoloration noted to hyperkeratotic skin caps - Back Exam Back Exam: absent: CVA tenderness (L), CVA tenderness (R) - Neurological Exam Neurological Exam: Alert, Awake, Oriented x3 - Psychiatric Exam Psychiatric exam: Normal Affect, Normal Mood - Skin Skin Exam: Dry, Warm Assessment and Plan - Assessment and Plan (Free Text) Assessment: 63 year old male with history of diabetes, hypertension who presents for diabe tic foot ulcers; IV abx, f/u podiatry recs Diabetic foot ulcers of right 3rd and 5th digit Failed outpatient antibiotic treatment Blood cultures negative X 48H Afebrile, normal WBC MRI: bone marrow edema at distal head of 5th meta bone & in proximal & mid phalanx, representing marrow reaction, early osteo not r/u Cxray - no acute fractures; soft tissue swelling CT angio from Nov 2018 subsequent balloon angioplasty of right posterior tibial artery however anterior tibial artery could not be cannulized. Continue Vancomycin 1g Q12 Continue Azactam 1g Q8 F/u Vanco random F/u vascular recs for possible circulation issues, pulses palpable F/u podiatry recs Type 2 diabetes, chronic Last A1c 11.8 from November 2018 Lantus 10 units SC HS High dose ISS Accuchecks Hypoglycemia protocol will require insulin adjustment in AM Peripheral Neuropathic pain Likely secondary to uncontrolled diabetes, chronic Low dose ISS Hypoglycemic protocol Peripheral vascular disease, chronic Patient has had balloon angioplasty of right posterior tibial artery in Nov 2018 Prophylaxis Consistent carb diet Heparin 5000 units SC Q8 Protonix 40mg IV daily <David Luevano H - Last Filed: 02/03/19 15:05> Objective - Vital Signs/Intake and Output Vital Signs (last 24 hours): Temp Pulse Resp BP Pulse Ox 98.7 F 70 20 150/60 97 02/03/19 08:00 02/03/19 08:00 02/03/19 08:00 02/03/19 08:00 02/03/19 08:00 Intake and Output: 02/03/19 02/03/19 06:59 18:59 Intake Total 710 720 Output Total 1000 Balance 710 -280 - Medications Medications: Current Medications Dextrose (Dextrose 50% Inj) 0 ml IV STAT PRN; Protocol PRN Reason: Hypoglycemia Protocol Dextrose (Glutose 15) 0 gm PO ONCE PRN; Protocol PRN Reason: Hypoglycemia Protocol Glucagon (Glucagen Diagnostic Kit) 0 mg IM STAT PRN; Protocol PRN Reason: Hypoglycemia Protocol Heparin Sodium (Porcine) (Heparin) 5,000 units SC Q8 [facility] Last Admin: 02/03/19 14:10 Dose: Not Given Vancomycin/Sodium Chloride (Vancomycin 1 Gm/Ns 200 Ml) 1 gm in 200 mls @ 133 mls/hr IVPB Q12H [facility]; Protocol Stop: 02/06/19 06:01 Last Admin: 02/03/19 05:25 Dose: 133 mls/hr Aztreonam 1 gm/ Sodium (Chloride) 100 mls @ 100 mls/hr IVPB Q8H [facility]; Protocol Last Admin: 02/03/19 09:44 Dose: 100 mls/hr Dextrose (Dextrose 5% In Water 1000 Ml) 1,000 mls @ 0 mls/hr IV .Q0M PRN; Protocol PRN Reason: Hypoglycemia Protocol Insulin Glargine (Lantus) 10 unit SC HS [facility] Last Admin: 02/02/19 21:34 Dose: 10 u Insulin Human Regular (Novolin R) 0 unit SC [facility]; Protocol Last Admin: 02/03/19 11:35 Dose: 6 unit Morphine Sulfate (Morphine) 2 mg IVP Q4 PRN PRN Reason: Pain, severe (8-10) Pantoprazole Sodium (Protonix Inj) 40 mg IVP DAILY [facility] Last Admin: 02/03/19 09:46 Dose: 40 mg - Labs Labs: 02/03/19 14:05 02/03/19 14:05 Attending/Attestation - Attestation I have personally seen and examined this patient.: Yes I have fully participated in the care of the patient.: Yes I have reviewed all pertinent clinical information, including history, physical exam and plan: Yes Notes (Text): 02/03/19 15:00 Medical attending: Patient was seen and examined by me. Agree with the above no te by the resident The patient was not in any acute distress when we came to evaluate him today The patient asked for pain medication and we started morphine IV Q4hrs PRN The MRI was done yesterday and it did not show definitive results and the report was not able to tell if there is osteomylitis or not Patient remains on IV abx at this time. While he is here, we will consult vascular surgery if there is something that can be done to help with the circulation David Luevano
[2019-02-03] MEDS: (Novolin R) Insulin Human Regular 100 units/ml vial SC SCH ×4 (08:07→21:33)
--- NOTE | 2019-02-03 11:27 | CP.PCM.CON ---
History of Present Illness - History of Present Illness History of Present Illness: Vascular Surgery Consult Note- Dr. Child Reason for Consult: Evaluation of RLE 63M pmhx significant for NIDDM< HLD, HTN, presented to [facility] ED on 02/01/19 for evaluation of Right 34rd and 5th digit redness an pain. During hospital workup MRI showed ? early Osteo of the right foot. On 11/2018 patient underwent catherization of R femoral artery. balloon angioplasty of posterior tibial artery at origin and distal 3rd(3mm) Denies Fevers, chills, chest pain, shortness of breath, nausea, vomiting, diarrhea PMH: NIDDM, HTN, HLD, gastritis PSH: RLE Angio (11/2018) ALL: PCN SocialHx: denies ETOH, tobacco or illicit drug use FH: non-contributory Review of Systems - Review of Systems All systems: reviewed and no additional remarkable complaints except - Constitutional Constitutional: As Per HPI Past Patient History - Infectious Disease Hx of Infectious Diseases: None - Past Medical History & Family History Past Medical History?: Yes - Past Social History Smoking Status: Never Smoked - CARDIAC Hx Hypertension: Yes - ENDOCRINE/METABOLIC Hx Diabetes Mellitus Type 2: Yes - MUSCULOSKELETAL/RHEUMATOLOGICAL Hx Falls: No - GASTROINTESTINAL Hx Gastritis: Yes - GENITOURINARY/GYNECOLOGICAL Hx Prostate Problems: Yes - PSYCHIATRIC Hx Substance Use: No - SURGICAL HISTORY Hx Surgeries: No - ANESTHESIA Hx Anesthesia: No Hx Anesthesia Reactions: No Hx Malignant Hyperthermia: No Meds Allergies/Adverse Reactions: Allergies Allergy/AdvReac Type Severity Reaction Status Date / Time Penicillins Allergy Verified 01/31/19 17:01 - Medications Medications: Current Medications Dextrose (Dextrose 50% Inj) 0 ml IV STAT PRN; Protocol PRN Reason: Hypoglycemia Protocol Dextrose (Glutose 15) 0 gm PO ONCE PRN; Protocol PRN Reason: Hypoglycemia Protocol Glucagon (Glucagen Diagnostic Kit) 0 mg IM STAT PRN; Protocol PRN Reason: Hypoglycemia Protocol Heparin Sodium (Porcine) (Heparin) 5,000 units SC Q8 [facility] Last Admin: 02/03/19 05:27 Dose: 5,000 units Vancomycin/Sodium Chloride (Vancomycin 1 Gm/Ns 200 Ml) 1 gm in 200 mls @ 133 ml s/hr IVPB Q12H [facility]; Protocol Stop: 02/06/19 06:01 Last Admin: 02/03/19 05:25 Dose: 133 mls/hr Aztreonam 1 gm/ Sodium (Chloride) 100 mls @ 100 mls/hr IVPB Q8H [facility]; Protocol Last Admin: 02/03/19 09:44 Dose: 100 mls/hr Dextrose (Dextrose 5% In Water 1000 Ml) 1,000 mls @ 0 mls/hr IV .Q0M PRN; Pro tocol PRN Reason: Hypoglycemia Protocol Insulin Glargine (Lantus) 10 unit SC HS [facility] Last Admin: 02/02/19 21:34 Dose: 10 u Insulin Human Regular (Novolin R) 0 unit SC ACHS [facility]; Protocol Last Admin: 02/03/19 08:07 Dose: 12 unit Morphine Sulfate (Morphine) 2 mg IVP Q4 PRN PRN Reason: Pain, severe (8-10) Pantoprazole Sodium (Protonix Inj) 40 mg IVP DAILY [facility] Last Admin: 02/03/19 09:46 Dose: 40 mg Physical Exam - Constitutional Appears: Non-toxic, No Acute Distress - Head Exam Head Exam: ATRAUMATIC - Eye Exam Eye Exam: EOMI. absent: Scleral icterus - ENT Exam ENT Exam: Mucous Membranes Moist - Respiratory Exam Respiratory Exam: NORMAL BREATHING PATTERN. absent: Accessory Muscle Use, Respiratory Distress - Cardiovascular Exam Cardiovascular Exam: REGULAR RHYTHM. absent: Bradycardia, Tachycardia, Irregular Rhythm - GI/Abdominal Exam GI & Abdominal Exam: Soft. absent: Distended, Guarding, Rigid, Tenderness - Extremities Exam Extremities exam: Negative for: pedal edema Additional comments: Right Third and 5 digits of LE discolored w/ some moltting Palpable RLE DP Strong Biphasic signals Right PT - Neurological Exam Neurological exam: Alert, Oriented x3 Results - Vital Signs Recent Vital Signs: Last Vital Signs Temp 98.7 F 02/03/19 08:00 Pulse 70 02/03/19 08:00 Resp 20 02/03/19 08:00 BP 150/60 02/03/19 08:00 Pulse Ox 97 02/03/19 08:00 - Labs Result Diagrams: 02/03/19 14:05 02/03/19 14:05 Labs: Laboratory Results - last 24 hr 02/02/19 02/02/19 02/03/19 16:14 21:01 07:40 POC Glucose (mg/dL) 303 H 263 H 404 H* 02/03/19 11:07 POC Glucose (mg/dL) 270 H Assessment & Plan - Assessment and Plan (Free Text) Assessment: 63M w/ ? RLE osteo Plan: - GIAN/PVR - Duplex of lower extremity - c/w Abx - continued medical management per podiatry and primary team - d/w Dr. Child Vascular Surgery Attending PGY2
[2019-02-03 14:24] LABS: BASO % 0.6 % (0.0-2.0); EOS # 0.1 K/uL (0.0-0.7); EOS % 1.1 % (0.0-4.0); HEMOGLOBIN 14.5 g/dL (12.0-18.0); LYMPH # 1.6 K/uL (1.0-4.3); LYMPH % 21.4 % (20.0-40.0); MEAN CELL VOLUME 99.3 fL (80.0-94.0); MEAN CORPUSCULAR HEMOGLOBIN 34.6 pg (27.0-31.0); MEAN CORPUSCULAR HGB CONC 34.9 g/dL (33.0-37.0); MEAN PLATELET VOLUME 8.6 fL (7.2-11.7); MONO # 0.3 K/uL (0.0-0.8); MONO % 4.4 % (0.0-10.0); NEUT # 5.3 K/uL (1.8-7.0); NEUT % 72.5 % (50.0-75.0); NRBC % 0.1 % (0.0-2.0); RBC 4.19 Mil/uL (4.40-5.90); RED CELL DISTRIBUTION WIDTH 13.7 % (11.5-14.5); WHITE BLOOD COUNT 7.3 K/uL (4.8-10.8)
[2019-02-03 14:48] LABS: ALB/GLOB RATIO 1.3 (1.0-2.1); ALBUMIN 4.3 g/dL (3.5-5.0); ALT/SGPT 23 U/L (21-72); AST/SGOT 34 U/L (17-59); BLOOD UREA NITROGEN 22 mg/dL (9-20); CALCIUM 9.7 mg/dl (8.6-10.4); GFR NON-AFRICAN AMERICAN 55
[2019-02-03] MEDS: (Lantus) Insulin Glargine, Recombinant SC SCH (21:34)
[2019-02-04] MEDS: Aztreonam 1 GM in Sodium Chloride 0.9% 100 ML IVPB SCH ×3 (02:26→17:47)
[2019-02-04] MEDS: Vancomycin 1 gm/NS 200 ml 1 GM/200 ML BAG IVPB SCH ×2 (06:51→19:53)
[2019-02-04 07:40] LABS: BASO % 0.7 % (0.0-2.0); EOS # 0.1 K/uL (0.0-0.7); HEMOGLOBIN 13.7 g/dL (12.0-18.0); LYMPH # 2.1 K/uL (1.0-4.3); LYMPH % 31.1 % (20.0-40.0); MEAN CELL VOLUME 97.5 fL (80.0-94.0); MEAN CORPUSCULAR HEMOGLOBIN 32.8 pg (27.0-31.0); MEAN CORPUSCULAR HGB CONC 33.6 g/dL (33.0-37.0); MEAN PLATELET VOLUME 8.2 fL (7.2-11.7); MONO # 0.4 K/uL (0.0-0.8); MONO % 5.6 % (0.0-10.0); NEUT # 4.1 K/uL (1.8-7.0); NEUT % 60.6 % (50.0-75.0); NRBC % 0.1 % (0.0-2.0); RBC 4.17 Mil/uL (4.40-5.90); RED CELL DISTRIBUTION WIDTH 13.4 % (11.5-14.5); WHITE BLOOD COUNT 6.8 K/uL (4.8-10.8)
[2019-02-04 07:42] LABS: ALB/GLOB RATIO 1.3 (1.0-2.1); ALT/SGPT 44 U/L (21-72); AST/SGOT 52 U/L (17-59); BLOOD UREA NITROGEN 22 mg/dL (9-20); CALCIUM 9.1 mg/dl (8.6-10.4); GFR NON-AFRICAN AMERICAN > 60
--- NOTE | 2019-02-04 08:01 | CP.PCM.PN ---
Subjective - Date & Time of Evaluation Date of Evaluation: 02/04/19 Time of Evaluation: 08:01 - Subjective Subjective: Progress Note for Hospitalist service Patient seen and examined at bedside. He states that he is comfortable at this time. He denies fevers, chills, headache, dizziness, chest pain, shortness of breath, abdominal pain, nausea, vomiting, diarrhea, constipation, dysuria, hematuria. He states that his pain in his right foot has improved slightly. Objective - Vital Signs/Intake and Output Vital Signs (last 24 hours): Temp Pulse Resp BP Pulse Ox 97.2 F L 70 20 139/72 97 02/04/19 07:53 02/04/19 07:53 02/04/19 07:53 02/04/19 07:53 02/04/19 07:53 Intake and Output: 02/04/19 02/04/19 06:59 18:59 Intake Total 710 Balance 710 - Medications Medications: Current Medications Dextrose (Dextrose 50% Inj) 0 ml IV STAT PRN; Protocol PRN Reason: Hypoglycemia Protocol Dextrose (Glutose 15) 0 gm PO ONCE PRN; Protocol PRN Reason: Hypoglycemia Protocol Glucagon (Glucagen Diagnostic Kit) 0 mg IM STAT PRN; Protocol PRN Reason: Hypoglycemia Protocol Heparin Sodium (Porcine) (Heparin) 5,000 units SC Q8 [facility] Last Admin: 02/04/19 06:52 Dose: 5,000 units Vancomycin/Sodium Chloride (Vancomycin 1 Gm/Ns 200 Ml) 1 gm in 200 mls @ 133 mls/hr IVPB Q12H [facility]; Protocol Stop: 02/06/19 06:01 Last Admin: 02/04/19 06:51 Dose: 133 mls/hr Aztreonam 1 gm/ Sodium (Chloride) 100 mls @ 100 mls/hr IVPB Q8H [facility]; Protocol Last Admin: 02/04/19 02:26 Dose: 100 mls/hr Dextrose (Dextrose 5% In Water 1000 Ml) 1,000 mls @ 0 mls/hr IV .Q0M PRN; Protocol PRN Reason: Hypoglycemia Protocol Insulin Glargine (Lantus) 10 unit SC HS [facility] Last Admin: 02/03/19 21:34 Dose: 10 u Insulin Human Regular (Novolin R) 0 unit SC ACHS [facility]; Protocol Last Admin: 02/03/19 21:33 Dose: 2 unit Morphine Sulfate (Morphine) 2 mg IVP Q4 PRN PRN Reason: Pain, severe (8-10) Pantoprazole Sodium (Protonix Inj) 40 mg IVP DAILY [facility] Last Admin: 02/03/19 09:46 Dose: 40 mg - Labs Labs: 02/04/19 07:07 02/04/19 07:07 - Constitutional Appears: Non-toxic, No Acute Distress - Head Exam Head Exam: ATRAUMATIC, NORMOCEPHALIC - Eye Exam Eye Exam: EOMI, PERRL - ENT Exam ENT Exam: Mucous Membranes Moist - Neck Exam Neck Exam: Full ROM. absent: Tenderness - Respiratory Exam Respiratory Exam: Clear to Ausculation Bilateral, NORMAL BREATHING PATTERN. absent: Rales, Rhonchi, Wheezes, Respiratory Distress, Stridor - Cardiovascular Exam Cardiovascular Exam: REGULAR RHYTHM, +S1, +S2. absent: Gallop, Rubs, Murmur - GI/Abdominal Exam GI & Abdominal Exam: Soft, Normal Bowel Sounds. absent: Tenderness - Extremities Exam Additional comments: DP/PT pulses palpable, Hyperkeratotic healed ulcers on right 3rd and 5th digits with thick cap, mild black discoloration noted to skin caps. - Neurological Exam Neurological Exam: Alert, Awake, Oriented x3 - Psychiatric Exam Psychiatric exam: Normal Affect, Normal Mood Assessment and Plan - Assessment and Plan (Free Text) Assessment: 63 year old male with history of diabetes, hypertension who presents for diabetic foot ulcers. Plan: Diabetic foot ulcers of right 3rd and 5th digit Failed outpatient antibiotic treatment Possible osteomyelitis of 5th digit on right foot, acute Blood cultures negative X 3 days Wound culture positive for Corynebacterium Afebrile, normal WBC MRI: bone marrow edema at distal head of 5th meta bone & in proximal & mid phalanx, representing marrow reaction, early osteo not r/u Cxray - no acute fractures; soft tissue swelling CT angio from Nov 2018 subsequent balloon angioplasty of right posterior tibial artery however anterior tibial artery could not be cannulized. Continue Vancomycin 1g Q12 Continue Azactam 1g Q8 Vanco random 17.[address] Schultz consulted, help appreciated F/u podiatry recs Type 2 diabetes, chronic Last A1c 11.8 from November 2018 Lantus 20 units SC HS High dose ISS Accuchecks Hypoglycemia protocol Repeat A1c pending Peripheral Neuropathic pain Likely secondary to uncontrolled diabetes, chronic Low dose ISS Hypoglycemic protocol Peripheral vascular disease, chronic Patient has had balloon angioplasty of right posterior tibial artery in Nov [address] Child consulted, help appreciated Follow up repeat arterial studies Prophylaxis Consistent carb diet Heparin 5000 units SC Q8 Protonix 40mg IV daily Case discussed with Dr. Asad Leiva, PGY1
[2019-02-04] MEDS: (Novolin R) Insulin Human Regular 100 units/ml vial SC SCH ×3 (08:21→17:35)
--- NOTE | 2019-02-04 09:07 | CP.PCM.PN ---
Subjective - Date & Time of Evaluation Date of Evaluation: 02/04/19 Time of Evaluation: 09:07 - Subjective Subjective: Podiatry Progress Note - Dr. Bright 63M seen and evaluated this AM with Dr. Bright for right 3rd and 5th digit infected wounds. NAD. No acute events overnight. No new lower extremity complaints per patient. Denies n/v/f/d/c/sob/[place] tor[place]/cp. Objective - Vital Signs/Intake and Output Vital Signs (last 24 hours): Temp Pulse Resp BP Pulse Ox 97.2 F L 70 20 139/72 97 02/04/19 07:53 02/04/19 07:53 02/04/19 07:53 02/04/19 07:53 02/04/19 07:53 Intake and Output: 02/04/19 02/04/19 06:59 18:59 Intake Total 710 Balance 710 - Medications Medications: Current Medications Dextrose (Dextrose 50% Inj) 0 ml IV STAT PRN; Protocol PRN Reason: Hypoglycemia Protocol Dextrose (Glutose 15) 0 gm PO ONCE PRN; Protocol PRN Reason: Hypoglycemia Protocol Glucagon (Glucagen Diagnostic Kit) 0 mg IM STAT PRN; Protocol PRN Reason: Hypoglycemia Protocol Heparin Sodium (Porcine) (Heparin) 5,000 units SC Q8 [facility] Last Admin: 02/04/19 06:52 Dose: 5,000 units Vancomycin/Sodium Chloride (Vancomycin 1 Gm/Ns 200 Ml) 1 gm in 200 mls @ 133 mls/hr IVPB Q12H [facility]; Protocol Stop: 02/06/19 06:01 Last Admin: 02/04/19 06:51 Dose: 133 mls/hr Aztreonam 1 gm/ Sodium (Chloride) 100 mls @ 100 mls/hr IVPB Q8H [facility]; Protocol Last Admin: 02/04/19 02:26 Dose: 100 mls/hr Dextrose (Dextrose 5% In Water 1000 Ml) 1,000 mls @ 0 mls/hr IV .Q0M PRN; Protocol PRN Reason: Hypoglycemia Protocol Insulin Glargine (Lantus) 10 unit SC HS [facility] Last Admin: 02/03/19 21:34 Dose: 10 u Insulin Human Regular (Novolin R) 0 unit SC ACHS [facility]; Protocol Last Admin: 02/04/19 08:21 Dose: 6 unit Morphine Sulfate (Morphine) 2 mg IVP Q4 PRN PRN Reason: Pain, severe (8-10) Pantoprazole Sodium (Protonix Inj) 40 mg IVP DAILY [facility] Last Admin: 02/03/19 09:46 Dose: 40 mg - Labs Labs: 02/04/19 07:07 02/04/19 07:07 - Constitutional Appears: Non-toxic, No Acute Distress - Extremities Exam Additional comments: Right lower extremity focused exam: Vasc: DP/PT pulses palpable 1/4. CFT <3 seconds to digits, unable to asses 3rd and 5th digits secondary to discoloration with hyperkeratosis. Temperature gradient warm to warm with no significant localized increase in warmth noted to digits. No pedal edema noted Neuro: Light touch and protective sensation grossly diminished Derm: Hyperkeratotic healed ulcerations noted to right foot 3rd and 5th digits with thick, eschar cap noted. Mild black discoloration noted to hyperkeratotic skin caps. No distinct breaks in skin or soft tissue present. Cellulitic skin changes surrounding 3rd and 5th digits extending to the level of the MPJs. No open lesions noted. Ortho: Mild pain on palpation noted to 3rd and 5th digits - Neurological Exam Neurological Exam: Alert, Awake, Oriented x3 - Psychiatric Exam Psychiatric exam: Normal Affect, Normal Mood Assessment and Plan - Assessment and Plan (Free Text) Assessment: 63M with right foot 3rd and 5th digit ulcers + cellulitis Plan: Patient seen and evaluated Discussed with Dr. Kaila HARRIS, WBC 6.8 Right foot x-ray reviewed - reveals no evidence of cortical erosion or acute osseous findings R foot MRI read - marrow edema at distal head of 5th metatarsal bone and middle and proximal phalanx of the fifth digit, likely represent bone marrow reaction, cannot exclude early OM changes Recommending 4-6 weeks IV abx -SW consulted for SAUL placement Continue abx - Azactam, Vancomycin Right foot wound culture - corynebacterium ss f/u GIAN/PVR f/u Duplex Podiatry will continue to follow
--- NOTE | 2019-02-04 10:05 | CP.PCM.PN ---
Subjective - Date & Time of Evaluation Date of Evaluation: 02/04/19 Time of Evaluation: 06:50 - Subjective Subjective: Vascular surgery note for Dr. Child Patient seen and examined at bedside. No acute event overnight. Patient has no complaints at this time. He admits to tolerating diet. He is passing flatus and BM. Will get GIAN/PVR. Objective - Vital Signs/Intake and Output Vital Signs (last 24 hours): Temp Pulse Resp BP Pulse Ox 97.2 F L 70 20 139/72 97 02/04/19 07:53 02/04/19 07:53 02/04/19 07:53 02/04/19 07:53 02/04/19 07:53 Intake and Output: 02/04/19 02/04/19 06:59 18:59 Intake Total 710 Balance 710 - Medications Medications: Current Medications Dextrose (Dextrose 50% Inj) 0 ml IV STAT PRN; Protocol PRN Reason: Hypoglycemia Protocol Dextrose (Glutose 15) 0 gm PO ONCE PRN; Protocol PRN Reason: Hypoglycemia Protocol Glucagon (Glucagen Diagnostic Kit) 0 mg IM STAT PRN; Protocol PRN Reason: Hypoglycemia Protocol Heparin Sodium (Porcine) (Heparin) 5,000 units SC Q8 [facility] Last Admin: 02/04/19 06:52 Dose: 5,000 units Vancomycin/Sodium Chloride (Vancomycin 1 Gm/Ns 200 Ml) 1 gm in 200 mls @ 133 mls/hr IVPB Q12H [facility]; Protocol Stop: 02/06/19 06:01 Last Admin: 02/04/19 06:51 Dose: 133 mls/hr Aztreonam 1 gm/ Sodium (Chloride) 100 mls @ 100 mls/hr IVPB Q8H [facility]; Protocol Last Admin: 02/04/19 02:26 Dose: 100 mls/hr Dextrose (Dextrose 5% In Water 1000 Ml) 1,000 mls @ 0 mls/hr IV .Q0M PRN; Protocol PRN Reason: Hypoglycemia Protocol Insulin Glargine (Lantus) 10 unit SC HS [facility] Last Admin: 02/03/19 21:34 Dose: 10 u Insulin Human Regular (Novolin R) 0 unit SC ACHS [facility]; Protocol Last Admin: 02/04/19 08:21 Dose: 6 unit Morphine Sulfate (Morphine) 2 mg IVP Q4 PRN PRN Reason: Pain, severe (8-10) Pantoprazole Sodium (Protonix Inj) 40 mg IVP DAILY [facility] Last Admin: 02/04/19 09:21 Dose: 40 mg - Labs Labs: 02/04/19 07:07 02/04/19 07:07 - Additional Findings Additional findings: - Constitutional Appears: Non-toxic, No Acute Distress - Head Exam Head Exam: ATRAUMATIC - Eye Exam Eye Exam: EOMI. absent: Scleral icterus - ENT Exam ENT Exam: Mucous Membranes Moist - Respiratory Exam Respiratory Exam: NORMAL BREATHING PATTERN. absent: Accessory Muscle Use, Respiratory Distress - Cardiovascular Exam Cardiovascular Exam: REGULAR RHYTHM. absent: Bradycardia, Tachycardia, Irregular Rhythm - GI/Abdominal Exam GI & Abdominal Exam: Soft. absent: Distended, Guarding, Rigid, Tenderness - Extremities Exam Extremities exam: Negative for: pedal edema Additional comments: Right Third and fifth digits of RLE with dry gangrene without drainage Palpable RLE DP Strong Biphasic signals Right PT - Neurological Exam Neurological exam: Alert, Oriented x3 Assessment and Plan - Assessment and Plan (Free Text) Assessment: 63M with PAD and RLE 3rd and 5th digit with dry gangrene rule out osteomyelitis Plan: -f/u GIAN/PVR -f/u Duplex of lower extremity -IV Abx -Wound care as per podiatry -medical management as per primary team -Discussed with Dr. Danyell Conley PGY2
--- NOTE | 2019-02-04 12:16 | CP.PCM.CON ---
Past Patient History - Infectious Disease Hx of Infectious Diseases: None - Past Medical History & Family History Past Medical History?: Yes - Past Social History Smoking Status: Never Smoked - CARDIAC Hx Hypertension: Yes - ENDOCRINE/METABOLIC Hx Diabetes Mellitus Type 2: Yes - MUSCULOSKELETAL/RHEUMATOLOGICAL Hx Falls: No - GASTROINTESTINAL Hx Gastritis: Yes - GENITOURINARY/GYNECOLOGICAL Hx Prostate Problems: Yes - PSYCHIATRIC Hx Substance Use: No - SURGICAL HISTORY Hx Surgeries: No - ANESTHESIA Hx Anesthesia: No Hx Anesthesia Reactions: No Hx Malignant Hyperthermia: No Meds Allergies/Adverse Reactions: Allergies Allergy/AdvReac Type Severity Reaction Status Date / Time Penicillins Allergy Verified 01/31/19 17:01 - Medications Medications: Current Medications Dextrose (Dextrose 50% Inj) 0 ml IV STAT PRN; Protocol PRN Reason: Hypoglycemia Protocol Dextrose (Glutose 15) 0 gm PO ONCE PRN; Protocol PRN Reason: Hypoglycemia Protocol Glucagon (Glucagen Diagnostic Kit) 0 mg IM STAT PRN; Protocol PRN Reason: Hypoglycemia Protocol Heparin Sodium (Porcine) (Heparin) 5,000 units SC Q8 [facility] Last Admin: 02/04/19 06:52 Dose: 5,000 units Vancomycin/Sodium Chloride (Vancomycin 1 Gm/Ns 200 Ml) 1 gm in 200 mls @ 133 mls/hr IVPB Q12H [facility]; Protocol Stop: 02/06/19 06:01 Last Admin: 02/04/19 06:51 Dose: 133 mls/hr Aztreonam 1 gm/ Sodium (Chloride) 100 mls @ 100 mls/hr IVPB Q8H [facility]; Protocol Last Admin: 02/04/19 10:29 Dose: 100 mls/hr Dextrose (Dextrose 5% In Water 1000 Ml) 1,000 mls @ 0 mls/hr IV .Q0M PRN; Protocol PRN Reason: Hypoglycemia Protocol Insulin Glargine (Lantus) 20 unit SC HS [facility] Insulin Human Regular (Novolin R) 0 unit SC ACHS [facility]; Protocol Last Admin: 02/04/19 08:21 Dose: 6 unit Morphine Sulfate (Morphine) 2 mg IVP Q4 PRN PRN Reason: Pain, severe (8-10) Pantoprazole Sodium (Protonix Inj) 40 mg IVP DAILY [facility] Last Admin: 02/04/19 09:21 Dose: 40 mg Results - Vital Signs Recent Vital Signs: Last Vital Signs Temp 97.2 F L 02/04/19 07:53 Pulse 70 02/04/19 07:53 Resp 20 02/04/19 07:53 BP 139/72 02/04/19 07:53 Pulse Ox 97 02/04/19 07:53 - Labs Result Diagrams: 02/04/19 07:07 02/04/19 07:07 Labs: Laboratory Results - last 24 hr 02/03/19 02/03/19 02/03/19 14:05 14:05 14:10 WBC 7.3 RBC 4.19 L Hgb 14.5 Hct 41.6 MCV 99.3 H MCH 34.6 H MCHC 34.9 RDW 13.7 Plt Count 318 MPV 8.6 Neut % (Auto) 72.5 Lymph % (Auto) 21.4 [place] % (Auto) 4.4 Eos % (Auto) 1.1 Baso % (Auto) 0.6 Neut # (Auto) 5.3 Lymph # (Auto) 1.6 [place] # (Auto) 0.3 Eos # (Auto) 0.1 Baso # (Auto) 0.0 Sodium 133 Potassium 5.1 Chloride 97 L Carbon Dioxide 25 Anion Gap 16 BUN 22 H Creatinine 1.3 Est GFR ( Amer) > 60 Est GFR (Non-Af Amer) 55 POC Glucose (mg/dL) Random Glucose 405 H* D Calcium 9.7 Phosphorus 3.8 Magnesium 1.7 Total Bilirubin 0.3 AST 34 ALT 23 Alkaline Phosphatase 96 Total Protein 7.6 Albumin 4.3 Globulin 3.3 Albumin/Globulin Ratio 1.3 Random Vancomycin 17.0 02/03/19 02/03/19 02/04/19 16:21 21:00 07:07 WBC 6.8 RBC 4.17 L Hgb 13.7 Hct 40.7 MCV 97.5 H MCH 32.8 H MCHC 33.6 RDW 13.4 Plt Count 299 MPV 8.2 Neut % (Auto) 60.6 Lymph % (Auto) 31.1 [place] % (Auto) 5.6 Eos % (Auto) 2.0 Baso % (Auto) 0.7 Neut # (Auto) 4.1 Lymph # (Auto) 2.1 [place] # (Auto) 0.4 Eos # (Auto) 0.1 Baso # (Auto) 0.0 Sodium Potassium Chloride Carbon Dioxide Anion Gap BUN Creatinine Est GFR ( Amer) Est GFR (Non-Af Amer) POC Glucose (mg/dL) 278 H 332 H Random Glucose Calcium Phosphorus Magnesium Total Bilirubin AST ALT Alkaline Phosphatase Total Protein Albumin Globulin Albumin/Globulin Ratio Random Vancomycin 02/04/19 02/04/19 02/04/19 07:07 07:08 11:30 WBC RBC Hgb Hct MCV MCH MCHC RDW Plt Count MPV Neut % (Auto) Lymph % (Auto) [place] % (Auto) Eos % (Auto) Baso % (Auto) Neut # (Auto) Lymph # (Auto) [place] # (Auto) Eos # (Auto) Baso # (Auto) Sodium 136 Potassium 4.4 Chloride 100 Carbon Dioxide 26 Anion Gap 14 BUN 22 H Creatinine 0.9 Est GFR ( Amer) > 60 Est GFR (Non-Af Amer) > 60 POC Glucose (mg/dL) 264 H 344 H Random Glucose 253 H D Calcium 9.1 Phosphorus 3.5 Magnesium 1.8 Total Bilirubin 0.4 AST 52 ALT 44 Alkaline Phosphatase 82 Total Protein 7.1 Albumin 4.0 Globulin 3.1 Albumin/Globulin Ratio 1.3 Random Vancomycin
--- NOTE | 2019-02-04 14:28 | CARD ---
APPROVED REPORT Date of service: 01/31/2019 EKG Measurement Heart [id number] <Conclusion> Normal sinus rhythm Normal ECG
--- NOTE | 2019-02-04 21:15 | CP.PCM.CON ---
History of Present Illness - History of Present Illness History of Present Illness: 63 yo male presented to [facility] on 02/01/19 for evaluation of Right 3rd and 5th digit redness and pain. He was being treated for cellulitis however recent MRI shows possible OM ID consulted for this PMH: NIDDM, HTN, HLD, gastritis PSH: ROJELIO Angio (11/2018) ALL: PCN SocialHx: denies ETOH, tobacco or illicit drug use FH: non-contributory Review of Systems - Review of Systems All systems: reviewed and no additional remarkable complaints except - Constitutional Constitutional: As Per HPI - EENT Eyes: absent: As Per HPI, Blind Spots, Blurred Vision, Change in Vision, Decreased Night Vision, Diplopia, Discharge, Dry Eye, Exophthalmos, Floaters, Irritation, Itchy Eyes, Loss of Peripheral Vision, Pain, Photophobia, Requires Corrective Lenses, Sees Flashes, Spots in Vision, Tunnel Vision, Other Visual Disturbances, Loss of Vision, Other Ears: absent: As Per HPI, Decreased Hearing, Ear Discharge, Ear Pain, Tinnitus, Abnormal Hearing, Disequilibrium, Dizziness, Other Nose/Mouth/Throat: absent: As Per HPI, Epistaxis, Nasal Congestion, Nasal Discharge, Nasal Obstruction, Nasal Trauma, Nose Pain, Post Nasal Drip, Sinus Pain, Sinus Pressure, Bleeding Gums, Change in Voice, Dental Pain, Dry Mouth, Dysphagia, Halitosis, Hoarsness, Lip Swelling, Mouth Lesions, Mouth Pain, Odynophagia, Sore Throat, Throat Swelling, Tongue Swelling, Facial Pain, Neck Pain, Neck Mass, Other - Cardiovascular Cardiovascular: As Per HPI - Respiratory Respiratory: absent: As Per HPI, Cough, Dyspnea, Hemoptysis, Dyspnea on Exertion, Wheezing, Snoring, Stridor, Pain on Inspiration, Chest Congestion, Excessive Mucous Production, Change in Mucous Color, Pain with Coughing, Other - Gastrointestinal Gastrointestinal: absent: As Per HPI, Abdominal Pain, Belching, Bloating, Change in Bowel Habits, Change in Stool Character, Coffee Ground Emesis, Constipation, Cramping, Diarrhea, Dyspepsia, Dysphagia, Early Satiety, Excessive Flatus, Fecal Incontinence, Heartburn, Hematemesis, Hematochezia, Loose Stools, Melena, Nausea, Odynophagia, Temesmus, Vomiting, Other - Genitourinary Genitourinary: absent: As Per HPI, Change in Urinary Stream, Difficulty Urinating, Dysuria, Flank Pain, Hematuria, Pyuria, Nocturia, Urinary Incontinence, Urinary Frequency, Urinary Hesitance, Urinary Urgency, Voiding Freq/Small Amts, Freq UTI, Hx Renal/Bladder Calculi, Hx /Renal Surgery, Bladder Distension, Other - Musculoskeletal Musculoskeletal: As Per HPI - Integumentary Integumentary: As Per HPI, Skin Pain, Wounds - Neurological Neurological: As Per HPI - Psychiatric Psychiatric: absent: As Per HPI, Abnormal Sleep Pattern, Anhedonia, Anxiety, Auditory Hallucinations, Behavioral Changes, Change in Appetite, Change in Libido, Confusion, Depression, Difficulty Concentrating, Hallucinations, Homicidal Ideation, Hopelessness, Irritability, Memory Loss, Mood Swings, Panic Attacks, Paranoia, Suicidal Ideation, Visual Hallucinations, Tactile Hallucinations, Other - Endocrine Endocrine: absent: As Per HPI, Change in Body Appearance, Change in Libido, Cold Intolorance, Deepening of Voice, Excessive Sweating, Fatigue, Flushing, Heat Intolorance, Increase in Ring/Shoe/Hat Size, Palpitations, Polydipsia, Polyphagia, Polyuria, Other - Hematologic/Lymphatic Hematologic: absent: As Per HPI, Easy Bleeding, Easy Bruising, Lymphadenopathy, Other Past Patient History - Infectious Disease Hx of Infectious Diseases: None - Past Medical History & Family History Past Medical History?: Yes - Past Social History Smoking Status: Never Smoked - CARDIAC Hx Hypertension: Yes - ENDOCRINE/METABOLIC Hx Diabetes Mellitus Type 2: Yes - MUSCULOSKELETAL/RHEUMATOLOGICAL Hx Falls: No - GASTROINTESTINAL Hx Gastritis: Yes - GENITOURINARY/GYNECOLOGICAL Hx Prostate Problems: Yes - PSYCHIATRIC Hx Substance Use: No - SURGICAL HISTORY Hx Surgeries: No - ANESTHESIA Hx Anesthesia: No Hx Anesthesia Reactions: No Hx Malignant Hyperthermia: No Meds Allergies/Adverse Reactions: Allergies Allergy/AdvReac Type Severity Reaction Status Date / Time Penicillins Allergy Verified 01/31/19 17:01 - Medications Medications: Current Medications Dextrose (Dextrose 50% Inj) 0 ml IV STAT PRN; Protocol PRN Reason: Hypoglycemia Protocol Dextrose (Glutose 15) 0 gm PO ONCE PRN; Protocol PRN Reason: Hypoglycemia Protocol Glucagon (Glucagen Diagnostic Kit) 0 mg IM STAT PRN; Protocol PRN Reason: Hypoglycemia Protocol Heparin Sodium (Porcine) (Heparin) 5,000 units SC Q8 [facility] Last Admin: 02/04/19 13:41 Dose: Not Given Vancomycin/Sodium Chloride (Vancomycin 1 Gm/Ns 200 Ml) 1 gm in 200 mls @ 133 mls/hr IVPB Q12H [facility]; Protocol Stop: 02/06/19 06:01 Last Admin: 02/04/19 19:53 Dose: 133 mls/hr Aztreonam 1 gm/ Sodium (Chloride) 100 mls @ 100 mls/hr IVPB Q8H [facility]; Protocol Last Admin: 02/04/19 17:47 Dose: 100 mls/hr Dextrose (Dextrose 5% In Water 1000 Ml) 1,000 mls @ 0 mls/hr IV .Q0M PRN; Protocol PRN Reason: Hypoglycemia Protocol Insulin Glargine (Lantus) 20 unit SC HS [facility]AI Insulin Human Regular (Novolin R) 0 unit SC ACHS [facility]; Protocol Last Admin: 02/04/19 17:35 Dose: 6 unit Morphine Sulfate (Morphine) 2 mg IVP Q4 PRN PRN Reason: Pain, severe (8-10) Pantoprazole Sodium (Protonix Inj) 40 mg IVP DAILY [facility] Last Admin: 02/04/19 09:21 Dose: 40 mg Physical Exam - Constitutional Appears: Non-toxic, No Acute Distress, Chronically Ill - Head Exam Head Exam: NORMOCEPHALIC - Eye Exam Eye Exam: EOMI, Normal appearance, PERRL Pupil Exam: NORMAL ACCOMODATION, PERRL - ENT Exam ENT Exam: Mucous Membranes Moist, Normal Exam - Neck Exam Neck exam: Positive for: Normal Inspection - Respiratory Exam Respiratory Exam: Clear to Auscultation Bilateral, NORMAL BREATHING PATTERN - Cardiovascular Exam Cardiovascular Exam: REGULAR RHYTHM - GI/Abdominal Exam GI & Abdominal Exam: Normal Bowel Sounds, Soft. absent: Tenderness - Rectal Exam Rectal Exam: Deferred - Exam Exam: NORMAL INSPECTION - Extremities Exam Extremities exam: Positive for: pedal edema, pedal pulses present. Negative for: normal capillary refill, normal inspection Additional comments: decreased pedal pulses dry crusted hyperkeratotic lesions around nail beds on right foot 3 and 5th digits no rob pus no crepitation - Back Exam Back exam: NORMAL INSPECTION - Neurological Exam Neurological exam: Alert, CN II-XII Intact, Normal Gait, Oriented x3, Reflexes Normal - Psychiatric Exam Psychiatric exam: Normal Affect, Normal Mood - Skin Skin Exam: Dry, Intact, Normal Color, Warm Results - Vital Signs Recent Vital Signs: Last Vital Signs Temp 98.3 F 02/04/19 16:05 Pulse 79 02/04/19 16:05 Resp 20 02/04/19 16:05 BP 169/88 H 02/04/19 16:05 Pulse Ox 96 02/04/19 16:05 - Labs Result Diagrams: 02/04/19 07:07 02/04/19 07:07 Labs: Laboratory Results - last 24 hr 02/03/19 02/04/19 02/04/19 21:00 07:07 07:07 WBC 6.8 RBC 4.17 L Hgb 13.7 Hct 40.7 MCV 97.5 H MCH 32.8 H MCHC 33.6 RDW 13.4 Plt Count 299 MPV 8.2 Neut % (Auto) 60.6 Lymph % (Auto) 31.1 [place] % (Auto) 5.6 Eos % (Auto) 2.0 Baso % (Auto) 0.7 Neut # (Auto) 4.1 Lymph # (Auto) 2.1 [place] # (Auto) 0.4 Eos # (Auto) 0.1 Baso # (Auto) 0.0 Sodium 136 Potassium 4.4 Chloride 100 Carbon Dioxide 26 Anion Gap 14 BUN 22 H Creatinine 0.9 Est GFR ( Amer) > 60 Est GFR (Non-Af Amer) > 60 POC Glucose (mg/dL) 332 H Random Glucose 253 H D Hemoglobin A1c Calcium 9.1 Phosphorus 3.5 Magnesium 1.8 Total Bilirubin 0.4 AST 52 ALT 44 Alkaline Phosphatase 82 Total Protein 7.1 Albumin 4.0 Globulin 3.1 Albumin/Globulin Ratio 1.3 Vancomycin Trough 02/04/19 02/04/19 02/04/19 07:08 11:30 12:59 WBC RBC Hgb Hct MCV MCH MCHC RDW Plt Count MPV Neut % (Auto) Lymph % (Auto) [place] % (Auto) Eos % (Auto) Baso % (Auto) Neut # (Auto) Lymph # (Auto) [place] # (Auto) Eos # (Auto) Baso # (Auto) Sodium Potassium Chloride Carbon Dioxide Anion Gap BUN Creatinine Est GFR ( Amer) Est GFR (Non-Af Amer) POC Glucose (mg/dL) 264 H 344 H Random Glucose Hemoglobin A1c 12.4 H Calcium Phosphorus Magnesium Total Bilirubin AST ALT Alkaline Phosphatase Total Protein Albumin Globulin Albumin/Globulin Ratio Vancomycin Trough 02/04/19 02/04/19 16:22 16:37 WBC RBC Hgb Hct MCV MCH MCHC RDW Plt Count MPV Neut % (Auto) Lymph % (Auto) [place] % (Auto) Eos % (Auto) Baso % (Auto) Neut # (Auto) Lymph # (Auto) [place] # (Auto) Eos # (Auto) Baso # (Auto) Sodium Potassium Chloride Carbon Dioxide Anion Gap BUN Creatinine Est GFR ( Amer) Est GFR (Non-Af Amer) POC Glucose (mg/dL) 268 H Random Glucose Hemoglobin A1c Calcium Phosphorus Magnesium Total Bilirubin AST ALT Alkaline Phosphatase Total Protein Albumin Globulin Albumin/Globulin Ratio Vancomycin Trough 15.4 H Assessment & Plan (1) Foot infection Status: Acute (2) Diabetes Status: Acute (3) Non-healing ulcer of foot Status: Acute (4) Renal insufficiency Status: Acute - Assessment and Plan (Free Text) Assessment: cellulitis right foot in the setting of diabetes with PVD MRI shows possible OM right 5th digit consider Ceretec scan to help clarify In view of PVD- distal amputation may not heal Agree with empoiric IV rx as ordered- May need 6wk empiric IV rx
[2019-02-04] MEDS ORDERED: (Lantus) Insulin Glargine, Recombinant SC SCH (22:00)
[2019-02-04] MEDS: (Novolog) Insulin Aspart, Recombinant 100 u/ml 10 ml vial SC SCH (22:43)
[2019-02-05] MEDS: Aztreonam 1 GM in Sodium Chloride 0.9% 100 ML IVPB SCH ×3 (02:00→18:44)
[2019-02-05] MEDS: Vancomycin 1 gm/NS 200 ml 1 GM/200 ML BAG IVPB SCH ×2 (05:20→20:15)
[2019-02-05 07:27] LABS: BASO % 0.5 % (0.0-2.0); EOS # 0.2 K/uL (0.0-0.7); EOS % 2.5 % (0.0-4.0); HEMOGLOBIN 13.2 g/dL (12.0-18.0); LYMPH # 2.3 K/uL (1.0-4.3); LYMPH % 34.6 % (20.0-40.0); MEAN CELL VOLUME 97.7 fL (80.0-94.0); MEAN CORPUSCULAR HEMOGLOBIN 33.2 pg (27.0-31.0); MEAN PLATELET VOLUME 8.3 fL (7.2-11.7); MONO # 0.5 K/uL (0.0-0.8); MONO % 7.2 % (0.0-10.0); NEUT # 3.7 K/uL (1.8-7.0); NEUT % 55.2 % (50.0-75.0); RBC 3.97 Mil/uL (4.40-5.90); RED CELL DISTRIBUTION WIDTH 13.6 % (11.5-14.5); WHITE BLOOD COUNT 6.7 K/uL (4.8-10.8)
--- NOTE | 2019-02-05 07:39 | CON ---
DATE: 02/04/2019 ENDOCRINOLOGY CONSULTATION LOCATION: Room 351. HISTORY OF PRESENT ILLNESS: This is a 63-year-old male with known history of type 2 diabetes and hypertension presenting here with right foot cellulitis and nonhealing neuropathic ulcerations in the right third and fifth toe as noted with failed response to outpatient and oral antibiotic therapy as given. 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 PAST MEDICAL HISTORY: As mentioned above history of type 2 diabetes, currently on a combination of metformin given as 1 g b.i.d. and Amaryl 4 mg b.i.d., history of hypertension and dyslipidemia, history of chronic gastritis, history of previous admissions for right foot nonhealing neuropathic ulcerations; the last of one which was in November of this year. He also underwent a recent percutaneous angioplasty of the right posterior tibial artery as noted. History of diabetic polyneuropathy and peripheral arterial disease and vasculopathy. FAMILY HISTORY: Positive for diabetes and hypertension. SOCIAL HISTORY: The patient has supportive family. No known substance use. REVIEW OF SYSTEMS: Admits to episodic bouts of dizziness and lightheadedness with suboptimal energy level and generalized body weakness. Also, admits to occasional bifrontal headaches and visual blurring. No chest pain or palpitations. His oral intake has been variable with occasional dyspepsia and vague upper abdominal pain. Also, admits to recent marked polyuria, nocturia, and polydipsia. Moreover, admits to lower extremity painful paraesthesia, especially nocturnally. PHYSICAL EXAMINATION: GENERAL: This is an average-built male, in no apparent distress. VITAL SIGNS: Blood pressure of 150/90, pulse of 100 beats per minute and regular, temperature 98, respirations 20. Height is 5 feet 8 inches. Weight is 168 pounds. HEENT: Head: Normocephalic. Eyes: Anicteric with pink conjunctivae. Funduscopy not possible at this time. Ears, nose, and throat, otherwise, normal. NECK: Supple. Thyroid gland is normal in size. No carotid bruits. No cervical adenopathy. CARDIOPULMONARY: Adynamic precordium. S1 and S2, rapid and regular. LUNGS: Clear to auscultation. ABDOMEN: Flat, soft with positive bowel sounds. EXTREMITIES: The right foot shows redness and tenderness in the distal right third and fifth toe areas as noted with diminished pulses bilaterally in both dorsalis pedis. LABORATORY DATA: Chemistries showed a BUN of 22, sodium 136, potassium 4.4, chloride 100, CO2 of 26, glucose 253, creatinine 0.9. His A1c is 12.4% which is quite elevated and indicative of suboptimal metabolic control of his diabetic condition as noted. ASSESSMENT: This is a 63-year-old male with uncontrolled and decompensated type 2 insulin requiring diabetes with possible secondary pancreatic failure from longstanding history of type 2 diabetes with clearly suboptimal metabolic control and elevated A1c values confirming the aforementioned despite the intake of a combination of oral hypoglycemic therapy as given with metformin and Amaryl medications as noted. He also has diabetic microvascular complications of retinopathy and polyneuropathy with macrovascular complications of peripheral arterial disease and vasculopathy. PLAN OF MANAGEMENT: We will modify his current insulin regimen and switch him over to a more physiologic basal and bolus insulin drug combination to optimize metabolic control and also to expedite healing in the right lower extremity with possibility of osteomyelitis of the right foot as noted. We will start Novolog given as prandial insulin at 8 units t.i.d. before meals to start tomorrow morning as ordered. We will modify the coverage scale to obviate hypoglycemia and detailed orders have been given. We will continue the basal insulin given as Lantus of 20 units subcutaneous at bedtime daily to start tonight. We will titrate incrementally to optimize metabolic goals, especially to expedite the healing of the right lower extremity, neuropathic ulcerations as noted. We will obtain serial chemistries accordingly and also a baseline lipid panel and TSH level as ordered. We will reinforce diabetic education and diabetic instructions at the time of this admission, and we will also include insulin self-administration and home glucose monitoring accordingly. We will follow. Betsy Dunbar MD
[2019-02-05] MEDS: (Novolog) Insulin Aspart, Recombinant 100 u/ml 10 ml vial SC SCH ×8 (07:47→22:19)
[2019-02-05 08:15] LABS: ALB/GLOB RATIO 1.3 (1.0-2.1); ALBUMIN 3.8 g/dL (3.5-5.0); ALT/SGPT 58 U/L (21-72); AST/SGOT 53 U/L (17-59); BLOOD UREA NITROGEN 28 mg/dL (9-20); CALCIUM 9.2 mg/dl (8.6-10.4); GFR NON-AFRICAN AMERICAN 55; HDL CHOLESTEROL 34 mg/dL (30-70)
[2019-02-05 08:21] LABS: LDL CHOLESTEROL 147 mg/dL (0-129)
--- NOTE | 2019-02-05 09:30 | CP.PCM.PN ---
Subjective - Date & Time of Evaluation Date of Evaluation: 02/05/19 Time of Evaluation: 09:30 - Subjective Subjective: PGY-1 Medicine progress note for Dr. Kamara Patient seen and examined at bedside. No acute events overnight. Patient has no complaints at this time. Objective - Vital Signs/Intake and Output Vital Signs (last 24 hours): Temp Pulse Resp BP Pulse Ox 97.8 F 68 20 151/80 H 98 02/05/19 07:57 02/05/19 07:57 02/05/19 07:57 02/05/19 07:57 02/05/19 07:57 Intake and Output: 02/05/19 02/05/19 06:59 18:59 Intake Total 1600 Balance 1600 - Medications Medications: Current Medications Dextrose (Dextrose 50% Inj) 0 ml IV STAT PRN; Protocol PRN Reason: Hypoglycemia Protocol Dextrose (Glutose 15) 0 gm PO ONCE PRN; Protocol PRN Reason: Hypoglycemia Protocol Glucagon (Glucagen Diagnostic Kit) 0 mg IM STAT PRN; Protocol PRN Reason: Hypoglycemia Protocol Heparin Sodium (Porcine) (Heparin) 5,000 units SC Q8 [facility] Last Admin: 02/05/19 05:20 Dose: Not Given Vancomycin/Sodium Chloride (Vancomycin 1 Gm/Ns 200 Ml) 1 gm in 200 mls @ 133 mls/hr IVPB Q12H [facility]; Protocol Stop: 02/06/19 06:01 Last Admin: 02/05/19 05:20 Dose: 133 mls/hr Aztreonam 1 gm/ Sodium (Chloride) 100 mls @ 100 mls/hr IVPB Q8H [facility]; Protocol Last Admin: 02/05/19 02:00 Dose: 100 mls/hr Dextrose (Dextrose 5% In Water 1000 Ml) 1,000 mls @ 0 mls/hr IV .Q0M PRN; Protocol PRN Reason: Hypoglycemia Protocol Insulin Aspart (Novolog) 8 unit SC AC [facility] Last Admin: 02/05/19 08:21 Dose: 8 units Insulin Aspart (Novolog) 0 unit SC ACHS [facility] Last Admin: 02/05/19 07:47 Dose: Not Given Insulin Glargine (Lantus) 20 unit SC HS [facility] Last Admin: 02/04/19 22:42 Dose: 2 units Morphine Sulfate (Morphine) 2 mg IVP Q4 PRN PRN Reason: Pain, severe (8-10) Pantoprazole Sodium (Protonix Inj) 40 mg IVP DAILY [facility] Last Admin: 02/04/19 09:21 Dose: 40 mg - Labs Labs: 02/05/19 07:19 02/05/19 07:19 - Additional Findings Additional findings: - Constitutional Appears: Non-toxic, No Acute Distress - Head Exam Head Exam: ATRAUMATIC, NORMOCEPHALIC - Eye Exam Eye Exam: EOMI, PERRL - ENT Exam ENT Exam: Mucous Membranes Moist - Neck Exam Neck Exam: Full ROM. absent: Tenderness - Respiratory Exam Respiratory Exam: Clear to Ausculation Bilateral, NORMAL BREATHING PATTERN. absent: Rales, Rhonchi, Wheezes, Respiratory Distress, Stridor - Cardiovascular Exam Cardiovascular Exam: REGULAR RHYTHM, +S1, +S2. absent: Gallop, Rubs, Murmur - GI/Abdominal Exam GI & Abdominal Exam: Soft, Normal Bowel Sounds. absent: Tenderness - Extremities Exam Additional comments: Hyperkeratotic healed ulcers on right 3rd and 5th digits with thick cap, mild black discoloration noted to skin caps. - Neurological Exam Neurological Exam: Alert, Awake, Oriented x3 - Psychiatric Exam Psychiatric exam: Normal Affect, Normal Mood Assessment and Plan - Assessment and Plan (Free Text) Assessment: Patient is a 63 year old male with a history of diabetes and hypertension who presents with diabetic foot ulcers. Plan: Diabetic foot ulcers of right 3rd and 5th digit - MRI: bone marrow edema at distal head of 5th meta bone & in proximal & mid pha lanx, representing marrow reaction, early osteo not r/u - Foot xray - no acute fractures; soft tissue swelling - ESR: 23 - Blood cultures: no growth to date - Wound culture positive for Corynebacterium - Vancomycin 1g IV Q12 (Started on 02/01) - Aztreonam 1g IV Q8 (Started on 02/01) - Vanco trough: 15.4 - Follow up Ceretec WBC studies - Follow up LE artery duplex - ID consulted, Dr. Schultz - Podiatry consulted, Dr. Bright Type 2 diabetes with peripheral neuropathy - Hemoglobin A1C: 12.4 - Endocrinology consulted, Dr. Dunbar - Lantus 20 units SC HS - Novolog 8 units SC AC - ISS - Accuchecks ACHS - Hypoglycemia protocol - Oxycodone 10mg PO Q8H PRN Peripheral vascular disease - Patient has had balloon angioplasty of right posterior tibial artery in Nov 2018 - Vascular Surgery consulted, Dr. Child - Follow up LE artery duplex Hyperlipidemia - Lipid panel: triglycerides, LDL, and cholesterol elevated - Start Crestor 5mg PO HS Prophylaxis: DVT: Heparin 5000 units SC Q8 GI: Protonix 40mg IV daily Patient seen and case discussed with attending, Dr. Kamara. David Beyer, PGY-1
--- NOTE | 2019-02-05 13:38 | VASCLAB ---
Date of service: 02/04/2019 PROCEDURE: Right Lower Extremity Arterial Exam. HISTORY: PVD COMPARISON: None available. TECHNIQUE: Grayscale and duplex Doppler evaluation of the right common femoral, femoral, profunda femoral, popliteal, posterior tibial, anterior tibial and dorsalis pedis arteries was performed. Report prepared by [employer] FINDINGS: RIGHT LOWER EXTREMITY: * Common Femoral Artery: Peak Systolic Velocity - 195: Doppler Waveform: Triphasic.: Plaque description - * Profunda Femoral Artery: Peak Systolic Velocity - 226: Doppler Waveform: Stenotic: Plaque description - * Femoral Artery o Proximal Segment: Peak Systolic Velocity - 125: Doppler Waveform: Triphasic.: Plaque description - o Middle Segment: Peak Systolic Velocity - 103: Doppler Waveform: Triphasic.: Plaque description - o Distal Segment: Peak Systolic Velocity - 64: Doppler Waveform: Triphasic.: Plaque description - * Popliteal Artery o Proximal Segment: Peak Systolic Velocity - 75: Doppler Waveform: Triphasic.: Plaque description - o Middle Segment: Peak Systolic Velocity - 72: Doppler Waveform: Triphasic.: Plaque description - o Distal Segment: Peak Systolic Velocity - 50: Doppler Waveform: Triphasic: Plaque description - * Posterior Tibial Artery: Peak Systolic Velocity - 67: Doppler Waveform: Triphasic.: Plaque description - * Peroneal Artery: Peak Systolic Velocity - 93: Doppler Waveform: Triphasic.: Plaque description - * Anterior Tibial Artery: Peak Systolic Velocity - 91: Doppler Waveform: Triphasic.: Plaque description - * Dorsalis Pedis Artery: Peak Systolic Velocity - 82: Doppler Waveform: Monophasic: Plaque description - OTHER FINDINGS: None. IMPRESSION: RIGHT: Increased peak systolic velocities at the distal common femoral and proximal profunda femoral arteries, suggest 30-49% stenosis.
--- NOTE | 2019-02-05 16:37 | CP.PCM.PN ---
Subjective - Date & Time of Evaluation Date of Evaluation: 02/05/19 Time of Evaluation: 16:37 - Subjective Subjective: Podiatry Progress Note - Dr. Bright 63M seen and evaluated this AM with Dr. Bright for right 3rd and 5th digit infected wounds. Resting comfortably, NAD. No new lower extremity complaints. Awaiting d/c recs. Objective - Vital Signs/Intake and Output Vital Signs (last 24 hours): Temp Pulse Resp BP Pulse Ox 97.9 F 70 20 152/68 H 97 02/05/19 15:59 02/05/19 15:59 02/05/19 15:59 02/05/19 15:59 02/05/19 15:59 Intake and Output: 02/05/19 02/05/19 06:59 18:59 Intake Total 1600 580 Balance 1600 580 - Medications Medications: Current Medications Dextrose (Dextrose 50% Inj) 0 ml IV STAT PRN; Protocol PRN Reason: Hypoglycemia Protocol Dextrose (Glutose 15) 0 gm PO ONCE PRN; Protocol PRN Reason: Hypoglycemia Protocol Glucagon (Glucagen Diagnostic Kit) 0 mg IM STAT PRN; Protocol PRN Reason: Hypoglycemia Protocol Heparin Sodium (Porcine) (Heparin) 5,000 units SC Q8 [facility] Last Admin: 02/05/19 14:07 Dose: Not Given Vancomycin/Sodium Chloride (Vancomycin 1 Gm/Ns 200 Ml) 1 gm in 200 mls @ 133 mls/hr IVPB Q12H [facility]; Protocol Stop: 02/06/19 06:01 Last Admin: 02/05/19 05:20 Dose: 133 mls/hr Aztreonam 1 gm/ Sodium (Chloride) 100 mls @ 100 mls/hr IVPB Q8H [facility]; Protocol Last Admin: 02/05/19 10:57 Dose: 100 mls/hr Dextrose (Dextrose 5% In Water 1000 Ml) 1,000 mls @ 0 mls/hr IV .Q0M PRN; Protocol PRN Reason: Hypoglycemia Protocol Insulin Aspart (Novolog) 0 unit SC ACHS [facility] Last Admin: 02/05/19 12:20 Dose: 4 units Insulin Aspart (Novolog) 14 unit SC AC [facility] Insulin Glargine (Lantus) 30 unit SC HS [facility] Morphine Sulfate (Morphine) 2 mg IVP Q4 PRN PRN Reason: Pain, severe (8-10) Pantoprazole Sodium (Protonix Inj) 40 mg IVP DAILY [facility] Last Admin: 02/05/19 10:42 Dose: Not Given Rosuvastatin Calcium (Crestor) 5 mg PO HS [facility] - Labs Labs: 02/05/19 07:19 02/05/19 07:19 - Constitutional Appears: Non-toxic, No Acute Distress - Extremities Exam Additional comments: Right lower extremity focused exam: Vasc: DP/PT pulses palpable 1/4. CFT <3 seconds to digits, unable to asses 3rd and 5th digits secondary to discoloration with hyperkeratosis. Temperature g radient warm to warm with no significant localized increase in warmth noted to digits. No pedal edema noted Neuro: Light touch and protective sensation grossly diminished Derm: Hyperkeratotic healed ulcerations noted to right foot 3rd and 5th digits with thick, eschar cap noted. Mild black discoloration noted to hyperkeratotic skin caps. No distinct breaks in skin or soft tissue present. Cellulitic skin changes surrounding 3rd and 5th digits extending to the level of the MPJs. No open lesions noted. Ortho: Mild pain on palpation noted to 3rd and 5th digits - Neurological Exam Neurological Exam: Alert, Awake, Oriented x3 - Psychiatric Exam Psychiatric exam: Normal Affect, Normal Mood Assessment and Plan - Assessment and Plan (Free Text) Assessment: 63M with right foot 3rd and 5th digit ulcers + cellulitis Plan: Patient seen and evaluated Discussed with Dr. Kaila HARRIS, WBC 6.7 Right foot x-ray reviewed - reveals no evidence of cortical erosion or acute osseous findings R foot MRI read - marrow edema at distal head of 5th metatarsal bone and middle and proximal phalanx of the fifth digit, likely represent bone marrow reaction, cannot exclude early OM changes Right foot wound culture - corynebacterium ss Continue abx - Azactam, Vancomycin RLE duplex: 30-49% stenosis at distal common femoral and proximal profunda femoral aa. Recommending 4-6 weeks IV abx -SW consulted for SAUL placement vs. at home tx Podiatry will continue to follow
--- NOTE | 2019-02-05 18:22 | PN ---
DATE: 02/05/2019 ENDOCRINOLOGY FOLLOWUP NOTE LOCATION: Room 351. SUBJECTIVE: This is a 63-year-old male with recent uncontrolled type 2 insulin-requiring diabetes, presenting here with nonhealing right foot neuropathic ulcerations and is now with underling cellulitis and is now being followed closely for metabolic management. His glycemic levels are fluctuating and the glucose levels overnight have ranged from 274 to 358 and 364 mg per dL, it was 400 at lunchtime today as noted. LABORATORY DATA: His chemistry showed a BUN of 28, sodium 136, potassium 4.5, chloride 101, CO2 of 25, glucose 281, and creatinine 1.3. ASSESSMENT: This is a 63-year-old male with uncontrolled and decompensated type 2 insulin-requiring diabetes with marked hyperglycemic accelerations, related to a subtherapeutic insulin regimen with concomitant nonhealing neuropathic ulcerations in the right foot with underlying cellulitis contributing to the increased insulin resistance and further impaired glucose tolerance thereof. PLAN OF MANAGEMENT: We will modify once again his basal and bolus insulin regimen and increase the NovoLog to 14 units subcutaneous three time daily before meals to start today as ordered. We will continue also the low dose correction scale using NovoLog insulin to obviate hypoglycemia and detailed orders have been given. We will modify his basal insulin also and increase and titrate the Lantus to 30 units subcutaneous at bedtime daily to start tonight. We will obtain serial chemistries and supplement accordingly as needed. We will also continue the intravenous hydration as given. We will reenforce dietary education and dietary instructions at the time of this admission. Betsy Dunbar MD
--- NOTE | 2019-02-05 21:49 | CP.PCM.PN ---
Subjective - Date & Time of Evaluation Date of Evaluation: 02/05/19 Time of Evaluation: 07:00 - Subjective Subjective: events noted IV rx in progress Objective - Vital Signs/Intake and Output Vital Signs (last 24 hours): Temp Pulse Resp BP Pulse Ox 97.9 F 70 20 152/68 H 97 02/05/19 15:59 02/05/19 15:59 02/05/19 15:59 02/05/19 15:59 02/05/19 15:59 Intake and Output: 02/05/19 02/06/19 18:59 06:59 Intake Total 580 Balance 580 - Medications Medications: Current Medications Dextrose (Dextrose 50% Inj) 0 ml IV STAT PRN; Protocol PRN Reason: Hypoglycemia Protocol Dextrose (Glutose 15) 0 gm PO ONCE PRN; Protocol PRN Reason: Hypoglycemia Protocol Glucagon (Glucagen Diagnostic Kit) 0 mg IM STAT PRN; Protocol PRN Reason: Hypoglycemia Protocol Heparin Sodium (Porcine) (Heparin) 5,000 units SC Q8 [facility] Last Admin: 02/05/19 14:07 Dose: Not Given Vancomycin/Sodium Chloride (Vancomycin 1 Gm/Ns 200 Ml) 1 gm in 200 mls @ 133 mls/hr IVPB Q12H [facility]; Protocol Stop: 02/06/19 06:01 Last Admin: 02/05/19 20:15 Dose: 133 mls/hr Aztreonam 1 gm/ Sodium (Chloride) 100 mls @ 100 mls/hr IVPB Q8H [facility]; Protocol Last Admin: 02/05/19 18:44 Dose: 100 mls/hr Dextrose (Dextrose 5% In Water 1000 Ml) 1,000 mls @ 0 mls/hr IV .Q0M PRN; Protocol PRN Reason: Hypoglycemia Protocol Insulin Aspart (Novolog) 0 unit SC ACHS [facility] Last Admin: 02/05/19 18:19 Dose: Not Given Insulin Aspart (Novolog) 14 unit SC AC [facility] Last Admin: 02/05/19 18:43 Dose: 14 units Insulin Glargine (Lantus) 30 unit SC HS [facility] Morphine Sulfate (Morphine) 2 mg IVP Q4 PRN PRN Reason: Pain, severe (8-10) Pantoprazole Sodium (Protonix Inj) 40 mg IVP DAILY [facility] Last Admin: 02/05/19 10:42 Dose: Not Given Rosuvastatin Calcium (Crestor) 5 mg PO HS [facility] - Labs Labs: 02/05/19 07:19 02/05/19 07:19 - Constitutional Appears: Well - Head Exam Head Exam: ATRAUMATIC, NORMAL INSPECTION, NORMOCEPHALIC - Eye Exam Eye Exam: EOMI, Normal appearance, PERRL Pupil Exam: NORMAL ACCOMODATION, PERRL - ENT Exam ENT Exam: Mucous Membranes Moist, Normal Exam - Neck Exam Neck Exam: Full ROM, Normal Inspection. absent: Lymphadenopathy - Respiratory Exam Respiratory Exam: Clear to Ausculation Bilateral, NORMAL BREATHING PATTERN - Cardiovascular Exam Cardiovascular Exam: REGULAR RHYTHM, +S1, +S2. absent: Murmur - GI/Abdominal Exam GI & Abdominal Exam: Soft, Normal Bowel Sounds. absent: Tenderness - Rectal Exam Rectal Exam: Deferred - Extremities Exam Extremities Exam: Full ROM, Normal Capillary Refill, Normal Inspection. absent: Joint Swelling, Pedal Edema - Back Exam Back Exam: NORMAL INSPECTION - Neurological Exam Neurological Exam: Alert, Awake, CN II-XII Intact, Normal Gait, Oriented x3 - Psychiatric Exam Psychiatric exam: Normal Affect, Normal Mood - Skin Skin Exam: Dry, Intact, Normal Color, Warm Assessment and Plan (1) Foot infection Status: Acute (2) Diabetes Status: Acute (3) Non-healing ulcer of foot Status: Acute (4) Renal insufficiency Status: Acute - Assessment and Plan (Free Text) Assessment: Right foot x-ray reviewed - reveals no evidence of cortical erosion or acute osseous findings R foot MRI read - marrow edema at distal head of 5th metatarsal bone and middle and proximal phalanx of the fifth digit, likely represent bone marrow reaction, cannot exclude early OM changes Right foot wound culture - corynebacterium ss Continue abx - Azactam, Vancomycin RLE duplex: 30-49% stenosis at distal common femoral and proximal profunda femoral aa. consider ceretec scan cont IV antibiotics for now
[2019-02-05] MEDS ORDERED: (Lantus) Insulin Glargine, Recombinant SC SCH (22:00)
[2019-02-06] MEDS: Aztreonam 1 GM in Sodium Chloride 0.9% 100 ML IVPB SCH ×3 (02:00→17:15)
[2019-02-06] MEDS: Vancomycin 1 gm/NS 200 ml 1 GM/200 ML BAG IVPB SCH (06:05)
--- NOTE | 2019-02-06 07:08 | CP.PCM.PN ---
Subjective - Date & Time of Evaluation Date of Evaluation: 02/06/19 Time of Evaluation: 07:08 Objective - Vital Signs/Intake and Output Vital Signs (last 24 hours): Temp Pulse Resp BP Pulse Ox 98 F 66 20 148/66 98 02/06/19 00:00 02/06/19 00:00 02/06/19 00:00 02/06/19 00:00 02/06/19 00:00 Intake and Output: 02/06/19 02/06/19 06:59 18:59 Intake Total 700 Balance 700 - Medications Medications: Current Medications Dextrose (Dextrose 50% Inj) 0 ml IV STAT PRN; Protocol PRN Reason: Hypoglycemia Protocol Dextrose (Glutose 15) 0 gm PO ONCE PRN; Protocol PRN Reason: Hypoglycemia Protocol Glucagon (Glucagen Diagnostic Kit) 0 mg IM STAT PRN; Protocol PRN Reason: Hypoglycemia Protocol Heparin Sodium (Porcine) (Heparin) 5,000 units SC Q8 [facility] Last Admin: 02/06/19 06:05 Dose: Not Given Aztreonam 1 gm/ Sodium (Chloride) 100 mls @ 100 mls/hr IVPB Q8H [facility]; Protocol Last Admin: 02/06/19 02:00 Dose: 100 mls/hr Dextrose (Dextrose 5% In Water 1000 Ml) 1,000 mls @ 0 mls/hr IV .Q0M PRN; Protocol PRN Reason: Hypoglycemia Protocol Insulin Aspart (Novolog) 0 unit SC ACHS [facility] Last Admin: 02/05/19 22:19 Dose: 4 units Insulin Aspart (Novolog) 14 unit SC AC [facility] Last Admin: 02/05/19 18:43 Dose: 14 units Insulin Glargine (Lantus) 30 unit SC HS [facility] Last Admin: 02/05/19 21:53 Dose: 30 unit Morphine Sulfate (Morphine) 2 mg IVP Q4 PRN PRN Reason: Pain, severe (8-10) Pantoprazole Sodium (Protonix Inj) 40 mg IVP DAILY [facility] Last Admin: 02/05/19 10:42 Dose: Not Given Rosuvastatin Calcium (Crestor) 5 mg PO HS [facility] Last Admin: 02/05/19 21:52 Dose: 5 mg - Labs Labs: 02/05/19 07:19 02/05/19 07:19
[2019-02-06 07:39] LABS: BASO % 0.4 % (0.0-2.0); EOS # 0.2 K/uL (0.0-0.7); EOS % 2.4 % (0.0-4.0); HEMOGLOBIN 13.2 g/dL (12.0-18.0); LYMPH # 2.4 K/uL (1.0-4.3); LYMPH % 31.6 % (20.0-40.0); MEAN CELL VOLUME 97.9 fL (80.0-94.0); MEAN CORPUSCULAR HEMOGLOBIN 33.8 pg (27.0-31.0); MEAN CORPUSCULAR HGB CONC 34.6 g/dL (33.0-37.0); MEAN PLATELET VOLUME 8.3 fL (7.2-11.7); MONO # 0.5 K/uL (0.0-0.8); MONO % 6.7 % (0.0-10.0); NEUT # 4.4 K/uL (1.8-7.0); NEUT % 58.9 % (50.0-75.0); RBC 3.91 Mil/uL (4.40-5.90); RED CELL DISTRIBUTION WIDTH 13.4 % (11.5-14.5); WHITE BLOOD COUNT 7.5 K/uL (4.8-10.8)
[2019-02-06 07:50] LABS: ALB/GLOB RATIO 1.3 (1.0-2.1); ALBUMIN 3.9 g/dL (3.5-5.0); ALT/SGPT 60 U/L (21-72); AST/SGOT 52 U/L (17-59); BLOOD UREA NITROGEN 30 mg/dL (9-20); CALCIUM 9.4 mg/dl (8.6-10.4); GFR NON-AFRICAN AMERICAN > 60
[2019-02-06] MEDS: (Novolog) Insulin Aspart, Recombinant 100 u/ml 10 ml vial SC SCH ×5 (08:11→17:15)
--- NOTE | 2019-02-06 12:10 | NM ---
Date of service: 02/05/2019 PROCEDURE: Ceretec labeled white blood cell study. HISTORY: Diabetic right toe infection,r/o osteomyelitis COMPARISON: 11/23/2018. Three-phase bone scan right foot TECHNIQUE: 22.1 mCi technetium 99 M Ceretec labeled white blood cells administered intravenously FINDINGS: Abnormal uptake right 3rd and 5th digits. Retention of radionuclide on the delayed images at 20 hr 3rd and 5th digits. IMPRESSION: Positive Ceretec labeled white blood cell study for acute osseous process right 3rd and 5th digits. This represents a new finding compared to three-phase bone scan, consistent with the clinical diagnosis of osteomyelitis.
--- NOTE | 2019-02-06 14:54 | RAD ---
Date of service: 02/06/2019 HISTORY: verify right PICC COMPARISON: 11/22/2018 FINDINGS: Right PICC line terminates at the cavoatrial junction. LUNGS: The lungs are well inflated and clear. PLEURA: No pleural effusions or pneumothorax. CARDIOVASCULAR: There is mild cardiomegaly. No aortic atherosclerotic calcifications present. OSSEOUS STRUCTURES: Within normal limits for the patient's age. VISUALIZED UPPER ABDOMEN: Normal. OTHER FINDINGS: None. IMPRESSION: Right PICC line terminates at the cavoatrial junction. No acute findings.
[2019-02-06] MEDS ORDERED: (Novolog) Insulin Aspart, Recombinant 100 u/ml 10 ml vial SC SCH (16:30)
[2019-02-06 17:34] VITALS: BP 155/91; PULSE 101; TEMP 98.4; O2SAT 97
[2019-02-06] MEDS ORDERED: Vancomycin 1 gm/NS 200 ml 1 GM/200 ML BAG IVPB SCH (18:00)
--- NOTE | 2019-02-06 18:07 | CP.PCM.PN ---
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 will d/c on po rx prognosis guarded- has OM by bone scan Objective - Vital Signs/Intake and Output Vital Signs (last 24 hours): Temp Pulse Resp BP Pulse Ox 98.4 F 101 H 20 155/91 H 97 02/06/19 17:33 02/06/19 17:33 02/06/19 17:33 02/06/19 17:33 02/06/19 17:33 Intake and Output: 02/06/19 02/06/19 06:59 18:59 Intake Total 700 1180 Balance 700 1180 - Medications Medications: Current Medications Dextrose (Dextrose 50% Inj) 0 ml IV STAT PRN; Protocol PRN Reason: Hypoglycemia Protocol Dextrose (Glutose 15) 0 gm PO ONCE PRN; Protocol PRN Reason: Hypoglycemia Protocol Glucagon (Glucagen Diagnostic Kit) 0 mg IM STAT PRN; Protocol PRN Reason: Hypoglycemia Protocol Heparin Sodium (Porcine) (Heparin) 5,000 units SC Q8 THAI Last Admin: 02/06/19 13:12 Dose: Not Given Aztreonam 1 gm/ Sodium (Chloride) 100 mls @ 100 mls/hr IVPB Q8H THAI; Protocol Last Admin: 02/06/19 17:15 Dose: 100 mls/hr Dextrose (Dextrose 5% In Water 1000 Ml) 1,000 mls @ 0 mls/hr IV .Q0M PRN; Protocol PRN Reason: Hypoglycemia Protocol Vancomycin/Sodium Chloride (Vancomycin 1 Gm/Ns 200 Ml) 1 gm in 200 mls @ 133.333 mls/hr IVPB Q12H THAI; Protocol Stop: 02/11/19 18:01 Insulin Aspart (Novolog) 0 unit SC ACHS THAI Last Admin: 02/06/19 17:15 Dose: Not Given Insulin Aspart (Novolog) 20 unit SC AC THAI Last Admin: 02/06/19 17:14 Dose: 20 unit Insulin Glargine (Lantus) 40 unit SC HS THAI Losartan Potassium (Cozaar) 50 mg PO DAILY [facility] Morphine Sulfate (Morphine) 2 mg IVP Q4 PRN PRN Reason: Pain, severe (8-10) Pantoprazole Sodium (Protonix Inj) 40 mg IVP DAILY [facility] Last Admin: 02/06/19 09:57 Dose: 40 mg Rosuvastatin Calcium (Crestor) 5 mg PO HS THAI Last Admin: 02/05/19 21:52 Dose: 5 mg - Labs Labs: 02/06/19 07:25 02/06/19 07:25 - Constitutional Appears: Non-toxic, Chronically Ill - Head Exam Head Exam: ATRAUMATIC, NORMAL INSPECTION, NORMOCEPHALIC - Eye Exam Eye Exam: EOMI, Normal appearance, PERRL Pupil Exam: NORMAL ACCOMODATION, PERRL - ENT Exam ENT Exam: Mucous Membranes Moist, Normal Exam - Neck Exam Neck Exam: Full ROM, Normal Inspection. absent: Lymphadenopathy - Respiratory Exam Respiratory Exam: Clear to Ausculation Bilateral, NORMAL BREATHING PATTERN - Cardiovascular Exam Cardiovascular Exam: REGULAR RHYTHM, +S1, +S2. absent: Murmur - GI/Abdominal Exam GI & Abdominal Exam: Soft, Normal Bowel Sounds. absent: Tenderness - Rectal Exam Rectal Exam: Deferred - Exam Exam: NORMAL INSPECTION - Extremities Exam Extremities Exam: Full ROM, Normal Capillary Refill, Normal Inspection. absent: Joint Swelling, Pedal Edema - Back Exam Back Exam: NORMAL INSPECTION - Neurological Exam Neurological Exam: Alert, Awake, CN II-XII Intact, Normal Gait, Oriented x3 - Psychiatric Exam Psychiatric exam: Depressed - Skin Skin Exam: Dry, Erythema, Intact. absent: Normal Color Assessment and Plan (1) Foot infection Status: Acute (2) Diabetes Status: Acute (3) Non-healing ulcer of foot Status: Acute (4) Renal insufficiency Status: Acute - Assessment and Plan (Free Text) Assessment: prognosis guarded refuses IV rx d/c on po rx
--- NOTE | 2019-02-06 20:00 | CP.PCM.DIS ---
<Amos Leiva - Last Filed: 02/06/19 20:46> Provider - Provider Date of Admission: 01/31/19 19:30 Attending physician: Franki Kamara MD Consults: 02/03/19 11:08 Vascular Surgery Routine Comment: Consulting Provider: Felipe Child Jr. Physician Instructions: Reason For Exam: R LE digit circulation concern 02/04/19 11:53 Physician Consult Routine Comment: Consulting Provider: Eleazar Schultz Consulting Physician: Eleazar Schultz Reason for Consult: Diabetic ulcers, possible osteomyelitis 02/04/19 20:11 Physician Consult Routine Comment: Consulting Provider: Betsy Dunbar Consulting Physician: Betsy Dunbar Reason for Consult: Uncontrolled DM,HA1c 12 Time Spent in preparation of Discharge (in minutes): 35 Hospital Course - Lab Results Lab Results: Micro Results 01/31/19 17:39 Blood Blood Culture - Final NO GROWTH AFTER 5 DAYS 01/31/19 17:39 Blood Gram Stain - Final TEST NOT PERFORMED 01/31/19 18:00 Blood Blood Culture - Final NO GROWTH AFTER 5 DAYS 01/31/19 18:00 Blood Gram Stain - Final TEST NOT PERFORMED 01/31/19 18:44 Toe Gram Stain - Final 01/31/19 18:44 Toe Wound Culture - Final Corynebacterium Species Most Recent Lab Values WBC 7.5 K/uL (4.8-10.8) 02/06/19 07:25 RBC 3.91 Mil/uL (4.40-5.90) L 02/06/19 07:25 Hgb 13.2 g/dL (12.0-18.0) 02/06/19 07:25 Hct 38.2 % (35.0-51.0) 02/06/19 07:25 MCV 97.9 fL (80.0-94.0) H 02/06/19 07:25 MCH 33.8 pg (27.0-31.0) H 02/06/19 07:25 MCHC 34.6 g/dL (33.0-37.0) 02/06/19 07:25 RDW 13.4 % (11.5-14.5) 02/06/19 07:25 Plt Count 332 K/uL (130-400) 02/06/19 07:25 MPV 8.3 fL (7.2-11.7) 02/06/19 07:25 Neut % (Auto) 58.9 % (50.0-75.0) 02/06/19 07:25 Lymph % (Auto) 31.6 % (20.0-40.0) 02/06/19 07:25 Holmes % (Auto) 6.7 % (0.0-10.0) 02/06/19 07:25 Eos % (Auto) 2.4 % (0.0-4.0) 02/06/19 07:25 Baso % (Auto) 0.4 % (0.0-2.0) 02/06/19 07:25 Neut # (Auto) 4.4 K/uL (1.8-7.0) 02/06/19 07:25 Lymph # (Auto) 2.4 K/uL (1.0-4.3) 02/06/19 07:25 Holmes # (Auto) 0.5 K/uL (0.0-0.8) 02/06/19 07:25 Eos # (Auto) 0.2 K/uL (0.0-0.7) 02/06/19 07:25 Baso # (Auto) 0.0 K/uL (0.0-0.2) 02/06/19 07:25 ESR 23 mm/hr (0-15) H 02/05/19 07:19 Sodium 137 mmol/L (132-148) 02/06/19 07:25 Potassium 4.6 mmol/L (3.6-5.2) 02/06/19 07:25 Chloride 102 mmol/L (98-107) 02/06/19 07:25 Carbon Dioxide 23 mmol/L (22-30) 02/06/19 07:25 Anion Gap 16 (10-20) 02/06/19 07:25 BUN 30 mg/dL (9-20) H 02/06/19 07:25 Creatinine 1.0 mg/dL (0.8-1.5) 02/06/19 07:25 Est GFR ( Amer) > 60 02/06/19 07:25 Est GFR (Non-Af Amer) > 60 02/06/19 07:25 POC Glucose (mg/dL) 303 mg/dL (65-110) H 02/06/19 11:16 Random Glucose 260 mg/dL (75-110) H 02/06/19 07:25 Hemoglobin A1c 12.4 % (4.2-6.5) H 02/04/19 12:59 Calcium 9.4 mg/dl (8.6-10.4) 02/06/19 07:25 Phosphorus 3.4 mg/dL (2.5-4.5) 02/06/19 07:25 Magnesium 1.9 mg/dL (1.6-2.3) 02/06/19 07:25 Total Bilirubin 0.3 mg/dL (0.2-1.3) 02/06/19 07:25 AST 52 U/L (17-59) 02/06/19 07:25 ALT 60 U/L (21-72) 02/06/19 07:25 Alkaline Phosphatase 73 U/L (38-126) 02/06/19 07:25 C-React Prot High Sens 6.52 mg/L (1.00-3.00) H 02/05/19 07:19 Total Protein 7.0 g/dL (6.3-8.3) 02/06/19 07:25 Albumin 3.9 g/dL (3.5-5.0) 02/06/19 07:25 Globulin 3.1 gm/dL (2.2-3.9) 02/06/19 07:25 Albumin/Globulin Ratio 1.3 (1.0-2.1) 02/06/19 07:25 Triglycerides 216 mg/dL (0-149) H 02/05/19 07:19 Cholesterol 240 mg/dL (0-199) H 02/05/19 07:19 LDL Cholesterol Direct 147 mg/dL (0-129) H 02/05/19 07:19 HDL Cholesterol 34 mg/dL (30-70) 02/05/19 07:19 TSH 3rd Generation 1.82 mIU/L (0.46-4.68) 02/05/19 07:19 Vancomycin Trough 15.4 ug/mL (5.0-10.0) H 02/04/19 16:37 Random Vancomycin 17.0 ug/mL 02/03/19 14:10 - Hospital Course Hospital Course: On admission: Patient is a 63 year old male with history of diabetes and hypertension who presents for evaluation after he was seen by Dr. Bright and told to come in to the ER for failed outpatient treatment of diabetic foot ulcers on 3rd and 5th digit. He states he was treated for same ulcers about 3 months ago. He states he has some burning pain that is intermittent in nature of the right foot, but he continues to be able to walk on it. He was diagnosed with diabetes at age 45, he states he checks his blood sugar levels at home and they are typically in 160s, however states that his blood sugar are higher in the hospital. He denies fevers, chills, headache, lightheadedness, dizziness, chest pain, shortness of breath, palpitations, abdominal pain, nausea, vomiting, diarrhea, constipation, dysuria, hematuria, lower extremity swelling, rash, weight changes. He was recently admitted here in November 2018 for same ulcers of right 3rd and 5th digit, was treated with IV antibiotics after wound cultures were positive for Streptococcus Group B, with bone scan negative for osteomyelitis. In November 2018, he had a CT angio of the lower extremities and had subsequent balloon angioplasty of right posterial tibial artery however anterior tibial artery could not be cannulized. Hospital course: Patient was admitted for diabetic foot ulcers of right 3rd and 5th digit. Blood cultures were negative, wound culture were positive for Corynebacterium. As per ID Dr. Schultz, patient was treated with Azactam 1g Q8 hours and Vancomycin 1g BID. MRI of foot revealed bone marrow edema at distal head of 5th metatarsak bone & in proximal & mid phalanx, representing marrow reaction, early osteo not ruled out. Ceretec WBC was suspicious for acute osteomyelitis of right 3rd and 5th digit. Initial plan was for 6 week treatment with IV antibiotic, however patient refused to go to rehab and requested oral antibiotic. As per ID Dr. Schultz, patient was discharged with Cipro 500mg PO BID and Bactrim DS 1 tab PO BID and recommended treatment for 6 weeks. Patient was found to have A1c of 12.4, and was started on insulin as per Author'S Agent Dr. Dunbar's recommendations. Patient was started on Crestor after he was found to have elevated cholesterol levels. Discharge instructions: Please follow up with your PMD Dr. Montes in one week. Since you are not interested in IV antibiotics at the rehab for treatment of osteomyelitis, you have been given prescriptions for oral antibiotics - Cipro 500mg PO BID and Bactrim DS 1 tab PO BID and insulin. You must control your blood sugar levels or your diabetic foot ulcers will not heal. You must follow up with your PMD for bloodwork, and to complete full 6 weeks of oral antibiotics. Your PMD may provided additional 2 weeks supply of Cipro and Bactrim DS as long as your bloodwork, specifically your renal function indicates that you are able to tolerate oral antibiotics. Please follow up with your [facility] in one week. You may return to the Emergency Department at any time, if you experience worsening pain in your foot. Discharge Exam - Head Exam Head Exam: ATRAUMATIC, NORMAL INSPECTION, NORMOCEPHALIC - Eye Exam Eye Exam: EOMI, PERRL - ENT Exam ENT Exam: Mucous Membranes Moist - Neck Exam Neck exam: Full Rom - Respiratory Exam Respiratory Exam: Clear to PA & Lateral, NORMAL BREATHING PATTERN. absent: Rales, Rhonchi, Wheezes, Respiratory Distress - Cardiovascular Exam Cardiovascular Exam: REGULAR RHYTHM, +S1, +S2. absent: Gallop, Rubs, Systolic Murmur - GI/Abdominal Exam GI & Abdominal Exam: Normal Bowel Sounds, Soft. absent: Distended, Firm, Guarding, Tenderness - Extremities Exam Additional comments: no calf tenderness, no pedal edema, decreased pulse on right foot compared to left. Right foot warm to touch with capillary refill <2 secs Left 3rd and 5th digit: hyperkeratotic healed ulcers with thick cap, mild black discoloration noted. - Back Exam Back exam: absent: CVA tenderness (L), CVA tenderness (R) - Neurological Exam Neurological exam: Alert, CN II-XII Intact, Oriented x3 - Psychiatric Exam Psychiatric exam: Normal Affect, Normal Mood Discharge Plan - Discharge Medications Prescriptions: Ciprofloxacin HCl [Cipro] 500 mg PO BID 30 Days #60 tablet Insulin Aspart, Recombinant [Novolog] 10 unit SC AC 30 Days unit Insulin Glargine, Recombina [Lantus] 30 unit SC HS 30 Days unit Rosuvastatin Calcium [Crestor] 5 mg PO HS 30 Days tab Sulfamethoxazole/Trimethoprim [Bactrim DS 800 mg-160 mg] 1 tab PO BID 30 Days #60 tab - Follow Up Plan Condition: STABLE Disposition: HOME/ ROUTINE Instructions: Foot Care for Diabetics, Wound Infection Additional Instructions: Please follow up with your PMD Dr. Montes in one week. Since you are not interested in IV antibiotics at the rehab for treatment of osteomyelitis, you have been given prescriptions for oral antibiotics - Cipro 500mg PO BID and Bactrim DS 1 tab PO BID and insulin. You must control your blood sugar levels or your diabetic foot ulcers will not heal. You must follow up with your PMD for bloodwork, and to complete full 6 weeks of oral antibiotics. Your PMD may provided additional 2 weeks supply of Cipro and Bactrim DS as long as your bloodwork, specifically your renal function is able to tolerate oral antibiotics. Please follow up with your Ret[facility] in one week. You may return to the Emergency Department at any time, if you experience worsening pain in your foot. <Franki Kamara - Last Filed: 02/07/19 07:47> Provider - Provider Date of Admission: 01/31/19 19:30 Attending physician: Franki Kamara MD Consults: 02/03/19 11:08 Vascular Surgery Routine Comment: Consulting Provider: Felipe Child Jr. Physician Instructions: Reason For Exam: R LE digit circulation concern 02/04/19 11:53 Physician Consult Routine Comment: Consulting Provider: Eleazar Schultz Consulting Physician: Eleazar Schultz Reason for Consult: Diabetic ulcers, possible osteomyelitis 02/04/19 20:11 Physician Consult Routine Comment: Consulting Provider: Betsy Dunbar Consulting Physician: Betsy Dunbar Reason for Consult: Uncontrolled DM,HA1c 12 Hospital Course - Lab Results Lab Results: Micro Results 01/31/19 17:39 Blood Blood Culture - Final NO GROWTH AFTER 5 DAYS 01/31/19 17:39 Blood Gram Stain - Final TEST NOT PERFORMED 01/31/19 18:00 Blood Blood Culture - Final NO GROWTH AFTER 5 DAYS 01/31/19 18:00 Blood Gram Stain - Final TEST NOT PERFORMED 01/31/19 18:44 Toe Gram Stain - Final 01/31/19 18:44 Toe Wound Culture - Final Corynebacterium Species Most Recent Lab Values WBC 7.5 K/uL (4.8-10.8) 02/06/19 07:25 RBC 3.91 Mil/uL (4.40-5.90) L 02/06/19 07:25 Hgb 13.2 g/dL (12.0-18.0) 02/06/19 07:25 Hct 38.2 % (35.0-51.0) 02/06/19 07:25 MCV 97.9 fL (80.0-94.0) H 02/06/19 07:25 MCH 33.8 pg (27.0-31.0) H 02/06/19 07:25 MCHC 34.6 g/dL (33.0-37.0) 02/06/19 07:25 RDW 13.4 % (11.5-14.5) 02/06/19 07:25 Plt Count 332 K/uL (130-400) 02/06/19 07:25 MPV 8.3 fL (7.2-11.7) 02/06/19 07:25 Neut % (Auto) 58.9 % (50.0-75.0) 02/06/19 07:25 Lymph % (Auto) 31.6 % (20.0-40.0) 02/06/19 07:25 Holmes % (Auto) 6.7 % (0.0-10.0) 02/06/19 07:25 Eos % (Auto) 2.4 % (0.0-4.0) 02/06/19 07:25 Baso % (Auto) 0.4 % (0.0-2.0) 02/06/19 07:25 Neut # (Auto) 4.4 K/uL (1.8-7.0) 02/06/19 07:25 Lymph # (Auto) 2.4 K/uL (1.0-4.3) 02/06/19 07:25 Holmes # (Auto) 0.5 K/uL (0.0-0.8) 02/06/19 07:25 Eos # (Auto) 0.2 K/uL (0.0-0.7) 02/06/19 07:25 Baso # (Auto) 0.0 K/uL (0.0-0.2) 02/06/19 07:25 ESR 23 mm/hr (0-15) H 02/05/19 07:19 Sodium 137 mmol/L (132-148) 02/06/19 07:25 Potassium 4.6 mmol/L (3.6-5.2) 02/06/19 07:25 Chloride 102 mmol/L (98-107) 02/06/19 07:25 Carbon Dioxide 23 mmol/L (22-30) 02/06/19 07:25 Anion Gap 16 (10-20) 02/06/19 07:25 BUN 30 mg/dL (9-20) H 02/06/19 07:25 Creatinine 1.0 mg/dL (0.8-1.5) 02/06/19 07:25 Est GFR ( Amer) > 60 02/06/19 07:25 Est GFR (Non-Af Amer) > 60 02/06/19 07:25 POC Glucose (mg/dL) 303 mg/dL (65-110) H 02/06/19 11:16 Random Glucose 260 mg/dL (75-110) H 02/06/19 07:25 Hemoglobin A1c 12.4 % (4.2-6.5) H 02/04/19 12:59 Calcium 9.4 mg/dl (8.6-10.4) 02/06/19 07:25 Phosphorus 3.4 mg/dL (2.5-4.5) 02/06/19 07:25 Magnesium 1.9 mg/dL (1.6-2.3) 02/06/19 07:25 Total Bilirubin 0.3 mg/dL (0.2-1.3) 02/06/19 07:25 AST 52 U/L (17-59) 02/06/19 07:25 ALT 60 U/L (21-72) 02/06/19 07:25 Alkaline Phosphatase 73 U/L (38-126) 02/06/19 07:25 C-React Prot High Sens 6.52 mg/L (1.00-3.00) H 02/05/19 07:19 Total Protein 7.0 g/dL (6.3-8.3) 02/06/19 07:25 Albumin 3.9 g/dL (3.5-5.0) 02/06/19 07:25 Globulin 3.1 gm/dL (2.2-3.9) 02/06/19 07:25 Albumin/Globulin Ratio 1.3 (1.0-2.1) 02/06/19 07:25 Triglycerides 216 mg/dL (0-149) H 02/05/19 07:19 Cholesterol 240 mg/dL (0-199) H 02/05/19 07:19 LDL Cholesterol Direct 147 mg/dL (0-129) H 02/05/19 07:19 HDL Cholesterol 34 mg/dL (30-70) 02/05/19 07:19 TSH 3rd Generation 1.82 mIU/L (0.46-4.68) 02/05/19 07:19 Vancomycin Trough 15.4 ug/mL (5.0-10.0) H 02/04/19 16:37 Random Vancomycin 17.0 ug/mL 02/03/19 14:10 Attending/Attestation - Attestation I have personally seen and examined this patient.: Yes I have fully participated in the care of the patient.: Yes I have reviewed all pertinent clinical information, including history, physical exam and plan: Yes Notes (Text): Patient wants to go home and refuses to go to rehab after long discussion including helping to manage his rent . Patient was seen by Dr Schultz recommended oral cipro and bactrim. Patient was expalined about the importance of following his primary care to check his blood,monitor his diabetes. Discussed about taking insulin and checking sugar. He was told that controlling his sugar is important to prevent complication like amputation of his foot secondary to uncontrolled sugar.
--- NOTE | 2019-02-06 21:39 | PN ---
DATE: 02/06/2019 ENDOCRINOLOGY FOLLOWUP NOTE LOCATION: Room 350. SUBJECTIVE: This is a 63-year-old male with recent uncontrolled type 2 insulin requiring diabetes, presenting here with nonhealing neuropathic ulcerations in the right foot and is now being followed closely for metabolic management. He is undergoing IV antibiotic management and local debridement as noted. His glycemic levels are still elevated and fluctuating overnight with glucose values ranging from 242 to 303 and 321 mg/dL. It was 382 at bedtime last night as noted. LABORATORY DATA: His chemistry showed a BUN of 30, sodium 137, potassium 4.6, chloride 102, CO2 of 23, glucose 260, and creatinine 1. ASSESSMENT: This is a 63-year-old male with uncontrolled and decompensated type 2 insulin-requiring diabetes with marked hyperglycemic accelerations related to the intercurrent infection, causing increased insulin resistance as noted transiently with impaired glucose tolerance thereof. PLAN OF MANAGEMENT: We will modify once again his basal and bolus insulin regimen to optimize metabolic control. We will increase the Novolog to 20 units subcu t.i.d. before meals to start today as ordered. We will also increase and titrate his basal insulin with Lantus to given as 40 units subcu at bedtime daily to start tonight. We will obtain serial chemistries and supplement accordingly as needed. We will follow up. Betsy Dunbar MD
[2019-02-06] MEDS ORDERED: (Lantus) Insulin Glargine, Recombinant SC SCH (22:00)
--- NOTE | 2019-02-06 22:01 | CP.PCM.PN ---
<Hipolito Bright - Last Filed: 02/06/19 22:01> Subjective - Date & Time of Evaluation Date of Evaluation: 02/06/19 Time of Evaluation: 22:01 Objective - Vital Signs/Intake and Output Vital Signs (last 24 hours): Temp Pulse Resp BP Pulse Ox 98.4 F 101 H 20 155/91 H 97 02/06/19 17:33 02/06/19 17:33 02/06/19 17:33 02/06/19 17:33 02/06/19 17:33 Intake and Output: 02/06/19 02/07/19 18:59 06:59 Intake Total 1180 750 Balance 1180 750 - Labs Labs: 02/06/19 07:25 02/06/19 07:25 <Olinda Cotton - Last Filed: 02/07/19 09:42> Subjective - Subjective Subjective: Podiatry Progress Note - Dr. Bright 63M seen and evaluated at bedside with Dr. Bright for right 3rd and 5th digit infected wounds. Resting comfortably, NAD. No new lower extremity complaints. Patient to be discharged home today on PO abx. Objective - Vital Signs/Intake and Output Vital Signs (last 24 hours): Temp Pulse Resp BP Pulse Ox 98.4 F 101 H 20 155/91 H 97 02/06/19 17:33 02/06/19 17:33 02/06/19 17:33 02/06/19 17:33 02/06/19 17:33 Intake and Output: 02/07/19 02/07/19 06:59 18:59 Intake Total 750 Balance 750 - Labs Labs: 02/06/19 07:25 02/06/19 07:25 - Constitutional Appears: Non-toxic, No Acute Distress - Extremities Exam Additional comments: Right lower extremity focused exam: Vasc: DP/PT pulses palpable 1/4. CFT <3 seconds to digits, unable to asses 3rd and 5th digits secondary to discoloration with hyperkeratosis. Temperature gradient warm to warm with no significant localized increase in warmth noted to digits. No pedal edema noted Neuro: Light touch and protective sensation grossly diminished Derm: Hyperkeratotic healed ulcerations noted to right foot 3rd and 5th digits with thick, eschar cap noted. Mild black discoloration noted to hyperkeratotic skin caps. No distinct breaks in skin or soft tissue present. Cellulitic skin changes surrounding 3rd and 5th digits extending to the level of the MPJs. No open lesions noted. Ortho: Mild pain on palpation noted to 3rd and 5th digits - Neurological Exam Neurological Exam: Alert, Awake, Oriented x3 - Psychiatric Exam Psychiatric exam: Normal Affect, Normal Mood Assessment and Plan - Assessment and Plan (Free Text) Assessment: 63M with right foot 3rd and 5th digit ulcers + cellulitis Plan: Patient seen and evaluated with Dr. Bright VSS, WBC 7.5 RLE duplex: 30-49% stenosis at distal common femoral and proximal profunda femoral aa. Right foot x-ray reviewed - reveals no evidence of cortical erosion or acute osseous findings R foot MRI read - marrow edema at distal head of 5th metatarsal bone and middle and proximal phalanx of the fifth digit, likely represent bone marrow reaction, cannot exclude early OM changes Right foot wound culture - corynebacterium ss Continue abx - Azactam, Vancomycin Recommending 4-6 weeks IV abx however patient refusing d/c to [facility] and requested oral abx -Patient to be discharged home on Cipro 500mg PO BID and Bactrim DS 1 tab PO BID for 6 weeks Stable for d/c home, follow up with Dr. Vides in office 1 week
== END 2019-02-06 21:50 | disposition home or self-care (01) | DRG 294 ==
LOC: C.ER 16:18 → C.3T 19:30 → C.9E 19:50 → C.3T 20:17
PROVIDERS: ADMIT Internal Medicine; ATTEND Internal Medicine
PROC: 02HV33Z Insertion of Infusion Device into Superior Vena Cava, Percutaneous Approach (ICD-10-PCS; principal; 2019-02-06)
DX: E11.621 Type 2 diabetes mellitus with foot ulcer (principal); L97.519 Non-pressure chronic ulcer of other part of right foot with unspecified severity; L03.115 Cellulitis of right lower limb; E11.52 Type 2 diabetes mellitus with diabetic peripheral angiopathy with gangrene; E11.42 Type 2 diabetes mellitus with diabetic polyneuropathy; E11.65 Type 2 diabetes mellitus with hyperglycemia; I10 Essential (primary) hypertension; N28.9 Disorder of kidney and ureter, unspecified; E11.319 Type 2 diabetes mellitus with unspecified diabetic retinopathy without macular edema; E78.5 Hyperlipidemia, unspecified; E78.00 Pure hypercholesterolemia, unspecified; Z79.4 Long term (current) use of insulin; Z95.820 Peripheral vascular angioplasty status with implants and grafts; Z88.0 Allergy status to penicillin; Z83.3 Family history of diabetes mellitus; Z82.49 Family history of ischemic heart disease and other diseases of the circulatory system